=== PATIENT | female | born 1945 | race Caucasian/White ===

== ENCOUNTER 2019-03-21 15:42 | Emergency (ER) | payer MEDICARE, BC ==
[2019-03-21 15:55] VITALS: BP 153/95; PULSE 67
--- NOTE | 2019-03-21 16:07 | EDM.PDOC ---
ED HPI GENERAL MEDICAL PROBLEM - General Chief Complaint: Upper Extremity Injury/Pain Stated Complaint: [facility] Time Seen by Provider: 03/21/19 16:06 Source of Information: Reports: Patient History Limitations: Reports: No Limitations - History of Present Illness INITIAL COMMENTS - FREE TEXT/NARRATIVE: 73-year-old female presents the ED after tripping and falling while walking her dog this afternoon. She resides in [facility]. The details of why she fell or little bit unclear. She says she has some left leg weakness chronically and she has to watch how she walks sometimes. She landed on the grass. She suffered abrasions contusions to her right paxton-face anterior to the right ear in her right forehead. She denies any loss of consciousness. Her chief complaint is severe pain in left shoulder and proximal left humerus and right hand particularly third and fourth fingers. She states she laid on the ground for about 20 minutes before her son found her and therefore was quite cold when she was found. She has received fentanyl 100 g IV by paramedics prior to coming to the hospital in the ambulance. She was brought to the hospital bit by [facility] ambulance. At present she is complaining of pain in her left shoulder and some nausea. Onset: Today Onset Date: 03/21/19 Onset Time: 14:40 Duration: Minutes: Location: Reports: Face (Blunt trauma to the right paxton-face and suture ear over the zygomatic process and right forehead.), Upper Extremity, Left (Severe pain and limited ability to move her left arm left shoulder and proximal humerus.), Upper Extremity, Right (Pain and swelling over her right third and fourth fingers with inability to make a fist.), Lower Extremity, Right ( Abrasions to the right lower leg.). Denies: Chest, Back Quality: Reports: Ache, Throbbing Severity: Moderate (Left shoulder and right hand.) Improves with: Reports: Rest Worsens with: Reports: Movement (Any tends to move the left arm causes severe pain in her left shoulder area. She is unable to close or make a fist on the right hand.) Context: Reports: Trauma (Tripped and fell landing on grasp. Suffered contusions to right paxton-face and forehead injury to the right hand particularly the third and fourth fingers in injury to the left shoulder proximal left humerus.). Denies: Activity, Exercise, Lifting, Sick Contact Associated Symptoms: Reports: Nausea/Vomiting. Denies: Confusion, Chest Pain, Cough, cough w sputum, Diaphoresis, Fever/Chills, Headaches, Loss of Appetite, Malaise, Rash, Seizure (Mild nausea), Shortness of Breath, Syncope, Weakness Treatments BRANCHER: Reports: Other Medication(s), Other (see below) (Paramedics gave her 100 g of fentanyl en route to [place].) Other Treatments BRANCHER: fentanyl Left Arm Pain Score (Numeric/FACES): 2 - Related Data Allergies Allergy/AdvReac Type Severity Reaction Status Date / Time No Known Allergies Allergy Verified 03/21/19 15:56 Home Meds: Home Meds Levothyroxine 125 mcg PO DAILY 03/21/19 [History] Nadolol [Corgard] 40 mg PO DAILY 03/21/19 [History] Omeprazole 40 mg PO DAILY 03/21/19 [History] Rifaximin [Xifaxan] 550 mg PO BID 03/21/19 [History] Sertraline [Zoloft] 50 mg PO DAILY 03/21/19 [History] Spironolactone [Aldactone] 12.5 mg PO DAILY 03/21/19 [History] Ursodiol 250 mg PO BID 03/21/19 [History] oxyCODONE HCl [Roxicodone] 1 - 2 mg PO Q4H PRN #28 tablet 03/21/19 [Rx] Past Medical History Cardiovascular History: Reports: High Cholesterol Gastrointestinal History: Reports: Other (See Below) Other Gastrointestinal History: Patient has primary idiopathic biliary cirrhosis. He is followed every 3-6 months by gastroenterology. Endocrine/Metabolic History: Reports: Hypothyroidism Social & Family History - Tobacco Use Smoking Status *Q: Never Smoker - Caffeine Use Caffeine Use: Reports: Coffee - Living Situation & Occupation Living situation: Reports: Occupation: Retired Review of Systems - Review of Systems Review Of Systems: See Below Constitutional: Reports: No Symptoms Eyes: Reports: Glasses Ears: Reports: No Symptoms Nose: Reports: No Symptoms Mouth/Throat: Reports: No Symptoms Respiratory: Reports: No Symptoms Cardiovascular: Denies: Chest Pain, Edema, Irregular Heart Rate GI/Abdominal: Reports: Other (History sports to triage nurse that she has some problem with increased pressure in her liver. I'm not sure if this means portal hypertension. The patient actually has some form of hepatitis.) Genitourinary: Reports: No Symptoms Musculoskeletal: Reports: Other (Pain left shoulder from fall today. Pain right hand from fall today.) Skin: Reports: Other (Abrasions to the right paxton-face and forehead today.) Neurological: Reports: Difficulty Walking (Patient is very conscious of walking due to left leg foot weakness.), Other (Patient commented she seems to have a chronic left lower extremity weakness. By this I'm not sure she has a left foot drop. Patient mentions she not sure she had a stroke in the past or not.) Psychiatric: Reports: No Symptoms ED EXAM, GENERAL - Physical Exam Exam: See Below Exam Limited By: No Limitations General Appearance: Alert, WD/WN, Moderate Distress, Other (She has obvious abrasions to right paxton-face anterior to ear over the zygomatic process and traveling superiorly to the right temporal scalp with swelling of her right paxton -forehead without abrasions in this area. Her temperature is 37.0. Pulse is 67 respiratory to be teens sats are 97% on room air blood pressure mildly elevated 153/95.) Eye Exam: Bilateral Eye: Normal Inspection, PERRL Ears: Normal External Exam Nose: Other (Patient has a very superficial abrasion to the bridge of her nose. No active bleeding from the nares.) Throat/Mouth: Normal Inspection, Normal Lips, Normal Oropharynx, Other (No injuries to the tongue or dentition.) Head: Facial Swelling (She has multiple abrasions to the right paxton-face anterior to her right ear over the zygomatic process traveling superiorly up the right side of her face. She also has a soft tissue swelling to the right lateral forehead without abrasions.), Other Neck: Normal Inspection, Supple, Non-Tender, Full Range of Motion. No: Lymphadenopathy (L), Lymphadenopathy (R) Respiratory/Chest: No Respiratory Distress, Lungs Clear, Normal Breath Sounds, No Accessory Muscle Use, Other Cardiovascular: Normal Peripheral Pulses, Regular Rate, Rhythm, No Edema, No Gallop, No Murmur, No Rub Peripheral Pulses: 3+: Radial (L), Radial (R), Posterior Tibial (L), Posterior Tibial (R), Dorsalis Pedis (L), Dorsalis Pedis (R) GI/Abdominal: Normal Bowel Sounds, Soft, Non-Tender, No Abnormal Bruit, No Mass , Other Back Exam: Normal Inspection, Full Range of Motion. No: CVA Tenderness (L), CVA Tenderness (R) Extremities: Other (Examination the right hand shows marked swelling of the proximal third and fourth fingers with ecchymoses on the volar aspect of the right fourth finger strongly suggesting a underlying fracture. Patient has some swelling over the MCP joints in these areas as well. She is unable to make a fist. Examination of the left shoulder shows marked swelling especially anteriorly suggestive of hematoma in this area. There is no drop off laterally to suggest an anterior dislocation. She most likely has suffered a fracture of her proximal left humerus. She has no significant pain in her left wrist or hand. She is limited ability to pronate or supinate at the left elbow due to pain in her shoulder. Appears to be swelling and pain in the proximal humerus on exam on the left side as well.) Psychiatric: Normal Affect, Normal Mood Skin Exam: Warm, Dry, Other (Abrasions to the right paxton-face.) ED TRAUMA EXTREMITY PROCEDURES - Splinting Right Upper Extremity Pre-Procedure NV Status: Normal Post-Procedure NV Status: Normal Splint Material: Fiberglass Splint Design: Volar, Posterior, Other (The splint encompassed the third fourth and fifth fingers which have fractures at the base of the proximal phalanges.) Applied & Form Fitted By: Provider Provider Post-Splint Application NV Check: NV Status Normal Complications: No Course - Vital Signs Last Recorded V/S: Last Vital Signs Temp 37.0 C 03/21/19 15:51 Pulse 67 03/21/19 15:51 Resp 18 03/21/19 15:51 BP 153/95 H 03/21/19 15:51 Pulse Ox 97 03/21/19 15:51 - Orders/Labs/Meds Orders: Active Orders 24 hr Category Date Time Status Chest 1V Frontal [CR] Routine Exams 03/21/19 17:15 Taken Hand Comp Min 3V Rt [CR] Stat Exams 03/21/19 16:26 Taken Humerus Lt [CR] Stat Exams 03/21/19 16:24 Taken Shoulder Comp Lt [CR] Stat Exams 03/21/19 16:23 Taken DME for Discharge [COMM] Routine Oth 03/21/19 17:41 Ordered Labs: Laboratory Tests 03/21/19 03/21/19 03/21/19 Range/Units 17:30 17:30 17:30 WBC 6.28 (3.98-10.04) K/mm3 RBC 3.87 L (3.98-5.22) M/mm3 Hgb 12.6 (11.2-15.7) gm/dl Hct 36.4 (34.1-44.9) % MCV 94.1 (79.4-94.8) fl MCH 32.6 H (25.6-32.2) pg MCHC 34.6 (32.2-35.5) g/dl RDW Std Deviation 60.6 H (36.4-46.3) fL Plt Count 76 L (182-369) K/mm3 MPV 11.3 (9.4-12.3) fl Neut % (Auto) 64.8 (34.0-71.1) % Lymph % (Auto) 25.2 (19.3-51.7) % George % (Auto) 7.8 (4.7-12.5) % Eos % (Auto) 1.6 (0.7-5.8) Baso % (Auto) 0.3 (0.1-1.2) % Neut # (Auto) 4.07 (1.56-6.13) K/mm3 Lymph # (Auto) 1.58 (1.18-3.74) K/mm3 George # (Auto) 0.49 H (0.24-0.36) K/mm3 Eos # (Auto) 0.10 (0.04-0.36) K/mm3 Baso # (Auto) 0.02 (0.01-0.08) K/mm3 Manual Slide Review Abnormal smear PT 11.9 (9.7-12.0) SECONDS INR 1.10 APTT 25 (22-31) SECONDS Sodium 141 (136-145) mEq/L Potassium 3.8 (3.5-5.1) mEq/L Chloride 107 (98-107) mEq/L Carbon Dioxide 28 (21-32) mEq/L Anion Gap 9.8 (5-15) BUN 9 (7-18) mg/dL Creatinine 0.8 (0.55-1.02) mg/dL Est Cr Clr Drug Dosing 60.90 mL/min Estimated GFR (MDRD) > 60 (>60) mL/min BUN/Creatinine Ratio 11.3 L (14-18) Glucose 119 H (83-115) mg/dL Calcium 8.9 (8.5-10.1) mg/dL Magnesium 1.6 L (1.8-2.4) mg/dl Total Bilirubin 2.7 H (0.2-1.0) mg/dL AST 71 H (15-37) U/L ALT 26 (14-59) U/L Alkaline Phosphatase 337 H (46-116) U/L Total Protein 6.1 L (6.4-8.2) g/dl Albumin 2.5 L (3.4-5.0) g/dl Globulin 3.6 gm/dL Albumin/Globulin Ratio 0.7 L (1-2) TSH 3rd Generation 0.056 L (0.358-3.74) uIU/mL Meds: Medications Discontinued Medications Generic Name Dose Route Start Last Admin Trade Name Freq PRN Reason Stop Dose Admin Hydromorphone HCl 0.5 mg 03/21/19 16:22 03/21/19 17:17 Dilaudid IVPUSH 03/21/19 16:23 0.5 mg ONETIME ONE Administration Hydromorphone HCl 0.5 mg 03/21/19 17:50 03/21/19 17:57 Dilaudid IVPUSH 03/21/19 17:51 0.5 mg ONETIME ONE Administration Sodium Chloride 1,000 mls @ 125 mls/hr 03/21/19 16:30 03/21/19 17:14 Normal Saline IV 125 mls/hr ASDIRECTED CARLOS Administration Ondansetron HCl 4 mg 03/21/19 16:23 03/21/19 17:16 Zofran IVPUSH 03/21/19 16:24 4 mg ONETIME ONE Administration - Radiology Interpretation Free Text/Narrative:: 73-year-old female reports tripping and falling when she was out walking her dog in [facility] this afternoon. She fell hard face first into the grass. She suffered contusions and abrasions to her right paxton-face and temporal frontal scalp. Any loss of consciousness. Her primary complaint is severe pain in her left shoulder which reveals a large swelling and suspect hematoma over the proximal humerus. Less likely anterior dislocation of the shoulder. She has good radial pulses bilaterally. She has injuries to the proximal aspects of her right third and fourth fingers and she is unable to make a fist. Plan she will have CT head performed. She will have x-rays of her left shoulder and humerus and x-rays of her right hand performed. IV will be normal saline at 125 mils per hour. Given Zofran 4 mg IV and Dilaudid 0.5 mg IV for pain relief. There are no open wounds and no need for tetanus toxoid at this time - Re-Assessments/Exams Free Text/Narrative Re-Assessment/Exam: 03/21/19 18:09 x-rays of the left shoulder reveal a fracture of the proximal left humerus with fairly good position. Humeral x-rays reveal no other fractures within the humerus. There is some mild degenerative change at the acromioclavicular joint on the left side. Chest x-ray reveals no cardiomegaly and no obvious rib fractures. Visualized portions the lungs are clear. X-rays of the right hand reveal fractures of the distal aspects of the proximal phalanx ease of the third fourth and fifth fingers. CT of the brain reveals mild age associated changes. Ventricles glucose along with the basal cisterns and sulci over the convexities are within normal limits for her age. No acute parenchymal injuries are identified. Similar no evidence of intracranial bleeding or midline shift or mass effect. And also normal. Plan patient was placed in a sling and swath on the left side. A volar and posterior slab Ortho- Glass splint was placed on the right hand and wrist to maintain position of her fingers. Prior follow-up with Dr. Russ orthopedic surgeon in clinic in about a week to 10 days time. I will have her phone tomorrow morning and arrange an appointment. To place her on Roxicodone 5 mg tablets one or 2 every 4-6 hours as needed for pain relief. Patient by history the daughter indicates that she has primary idiopathic cirrhosis. Her high doses of Tylenol were not warranted. She will stay on MiraLAX 17 g or 1 scoop daily to prevent constipation from narcotic pain medication. Departure - Departure Time of Disposition: 18:12 Disposition: Home, Self-Care 01 Condition: Fair Clinical Impression: Fall Qualifiers: Encounter type: initial encounter Qualified Code(s): W19.XXXA - Unspecified fall, initial encounter Fracture of humerus, proximal, left, closed Qualifiers: Encounter type: initial encounter Fracture alignment: nondisplaced Fracture of multiple fingers Qualifiers: Encounter type: initial encounter Fracture type: closed Qualified Code(s): S62.609A - Fracture of unspecified phalanx of unspecified finger, initial encounter for closed fracture Fracture of hand Qualifiers: Encounter type: initial encounter Fracture type: closed Laterality: right Qualified Code(s): S62.91XA - Unspecified fracture of right wrist and hand, initial encounter for closed fracture - Discharge Information *PRESCRIPTION DRUG MONITORING PROGRAM REVIEWED*: Not Applicable *COPY OF PRESCRIPTION DRUG MONITORING REPORT IN PATIENT ANIKA: Not Applicable Prescriptions: oxyCODONE HCl [Roxicodone] 1 - 2 mg PO Q4H PRN #28 tablet PRN Reason: Pain relief Instructions: Humerus Fracture Treated With Immobilization, [id number], Finger Fracture, Adult, [id number], Cast or Splint Care, Adult Referrals: PCP,None [Primary Care Provider] - Forms: ED Department Discharge Additional Instructions: Evaluation the emergency room today in regards to a trip and fall with resultant blunt force trauma to the right side of your face and forehead with no loss of consciousness. CT of the head reveals no fractures and no intracranial bleeding or mass effect. CT does not reveal any evidence of previous stroke. Major injuries to the left shoulder and x-rays confirm a fracture of the upper aspect of your left humerus her arm bone. Position is adequate and surgery is not indicated. Treatment is sling and swath to hold it in position for the next 3 weeks until the bone begins to mid together. Other injuries are to your right hand and x-rays confirm fractures at the base of the third fourth and fifth fingers just above your knuckles. The hand was therefore immobilized with a posterior and anterior Ortho-Glass splint. Rate this hand is much as possible the next few days. Treatment at home is plenty of rest. Pain medication is to be Roxicodone 5 mg tablets one or 2 every 4-6 hours as needed for pain relief. Note these do not contain any Tylenol so as not to aggravate your primary biliary cirrhosis. Suggest using MiraLAX powder 17 g or 1 scoop every day to prevent constipation from the pain medications. Will need to follow -up with orthopedic surgeon Dr. Childs in about a week's time. Please call to arrange an appointment tomorrow morning. Continue all other medications as before. - My Orders Last 24 Hours: My Active Orders 03/21/19 16:23 Shoulder Comp Lt [CR] Stat 03/21/19 16:24 Humerus Lt [CR] Stat 03/21/19 16:26 Hand Comp Min 3V Rt [CR] Stat 03/21/19 17:15 Chest 1V Frontal [CR] Routine 03/21/19 17:41 DME for Discharge [COMM] Routine - Assessment/Plan Last 24 Hours: My Active Orders 03/21/19 16:23 Shoulder Comp Lt [CR] Stat 03/21/19 16:24 Humerus Lt [CR] Stat 03/21/19 16:26 Hand Comp Min 3V Rt [CR] Stat 03/21/19 17:15 Chest 1V Frontal [CR] Routine 03/21/19 17:41 DME for Discharge [COMM] Routine
[2019-03-21] MEDS ORDERED: HYDROmorphone 0.5 MG/0.5 ML Syringe IVPUSH ONE ×2 (16:22→17:50)
[2019-03-21] MEDS ORDERED: Ondansetron 4 MG/2 ML SDV IVPUSH ONE (16:23)
[2019-03-21] MEDS ORDERED: Sodium Chloride 0.9% 1,000 ML IV SCH (16:30)
--- NOTE | 2019-03-21 17:32 | CT ---
Head CT Technique: Multiple axial sections through the brain were obtained. Intravenous contrast was not utilized. Comparison: No prior intracranial imaging is available. Findings: Ventricles along with basal cisterns and sulci over the convexities are within normal limits for the patient's age. No abnormal parenchymal densities are seen. No evidence of intracranial hemorrhage. No midline shift or mass effect is seen. Bone window settings were reviewed which shows no discrete calvarial abnormality. Mastoid sinuses that are seen appear clear. No acute paranasal sinus findings are seen. Impression: 1. Nothing acute is seen on noncontrast head CT exam. Diagnostic code #1
--- NOTE | 2019-03-22 06:44 | CR ---
Chest: AP view of the chest was obtained. Comparison: No prior chest x-ray. Heart size is felt to be slightly enlarged. Tortuous thoracic aorta is seen. Pleural-based density noted within the left mid chest of uncertain etiology. Lungs otherwise are clear. Bony structures show minimal scoliosis of the spine. Osteopenia is seen. Impression: 1. Focal pleural-based density of left mid chest. Recommend noncontrast chest CT to further evaluate. 2. Nothing acute is otherwise seen. Diagnostic code #9
--- NOTE | 2019-03-22 06:45 | CR ---
Left humerus: Two views of the left humerus were obtained. Comparison: No prior humerus exam. Fracture is identified within the surgical neck. Osteopenia is seen. No additional abnormality is seen within the left humerus. Impression: 1. Osteopenia and fracture through the surgical neck. Diagnostic code #3
--- NOTE | 2019-03-22 06:45 | CR ---
Right hand: Four views of the right hand were obtained. Comparison: No previous hand study. Fractures are seen within the base of the proximal phalanx of the 3rd through 5th fingers. Slight displacement is seen within the 3rd and 4th fingers. Bony structures are slightly osteopenic. No other acute abnormality is appreciated. Impression: 1. Fractures involving the base of the proximal phalanx of the 3rd through 5th fingers. 2. Osteopenia. Diagnostic code #3
--- NOTE | 2019-03-22 08:28 | CR ---
Left shoulder: Three views of the left shoulder obtained. Comparison: No prior shoulder exam. Slightly angulated surgical neck fracture is seen. Displacement is seen by approximately 5 mm. Osteopenia is noted. No additional bony abnormality is seen. Impression: 1. Surgical neck fracture as noted above. 2. Osteopenia. Diagnostic code #3
== END 2019-03-21 18:45 | disposition home or self-care (01) ==
LOC: JD.ED 15:42
DX: S62.612A Displaced fracture of proximal phalanx of right middle finger, initial encounter for closed fracture (principal); S62.614A Displaced fracture of proximal phalanx of right ring finger, initial encounter for closed fracture; S62.616A Displaced fracture of proximal phalanx of right little finger, initial encounter for closed fracture; S42.215A Unspecified nondisplaced fracture of surgical neck of left humerus, initial encounter for closed fracture; S00.81XA Abrasion of other part of head, initial encounter; S00.31XA Abrasion of nose, initial encounter; E78.00 Pure hypercholesterolemia, unspecified; E03.9 Hypothyroidism, unspecified; Z79.899 Other long term (current) drug therapy; W01.0XXA Fall on same level from slipping, tripping and stumbling without subsequent striking against object, initial encounter; Y93.K1 Activity, walking an animal
CPT/HCPCS: 29125; 36415; 70450; 70450-26; 71045; 71045-26; 73030-26-LT; 73030-LT; 73060-26-LT; 73060-LT; 73130-26-RT; 73130-RT; 80053; 83735; 84443; 85025; 85610; 85730; 96361; 96374; 96375; 96376; 99285-25; J1170; J2405; J7040

== ENCOUNTER 2019-03-23 17:28 | Inpatient (IN) | payer MEDICARE, BC ==
[2019-03-23] MEDS ORDERED: Sodium Chloride 0.9% 10 ML Syringe FLUSH PRN (17:46)
[2019-03-23] MEDS ORDERED: Sodium Chloride 0.9% 1,000 ML IV SCH (18:00)
--- NOTE | 2019-03-23 18:34 | CT ---
Chest: Multiple axial sections through the chest were obtained. Intravenous contrast was not utilized. Comparison: Prior chest x-ray of 03/21/19. Findings: Slight areas of scarring and/or atelectasis within the left lung base. Mild pleural thickening is noted with thin the left lung base. Pleural thickening has a benign appearance. No chest wall or pleural mass is noted. No acute parenchymal change is seen within the lungs. Mediastinum and hilar region show no adenopathy. No aneurysm is seen within the thoracic aorta. Liver appears somewhat small and has a nodular contour raising the possibility of cirrhosis. Bone window settings were reviewed which shows nothing acute. Old compression deformity is noted within the upper lumbar spine. Schmorl node deformities are scattered within the spine. Impression: 1. Probable cirrhotic change within the liver. 2. Other findings which are felt to be incidental as noted above. Nothing acute is appreciated on noncontrast CT study of the chest. Finding on recent chest x-ray is felt to be incidental. Diagnostic code #3
--- NOTE | 2019-03-23 18:36 | CT ---
Head CT Technique: Multiple axial sections through the brain were obtained. Intravenous contrast was not utilized. Comparison: Prior head CT study of 03/21/19. Findings: Ventricles along with basal cisterns and sulci over the convexities are within normal limits for the patient's age. No abnormal parenchymal densities are seen. No evidence of intracranial hemorrhage. No midline shift or mass effect is seen. Bone window settings shows no acute calvarial abnormality. Impression: 1. Nothing acute is seen on noncontrast head CT study. 2. No change from prior head CT exam is seen. Diagnostic code #1
--- NOTE | 2019-03-23 18:48 | EDM.PDOC ---
ED HPI GENERAL MEDICAL PROBLEM - General Chief Complaint: Neurological Problem Stated Complaint: WEAKNESS,CONFUSION Time Seen by Provider: 03/23/19 17:36 Source of Information: Reports: Patient, Family History Limitations: Reports: Altered Mental Status - History of Present Illness INITIAL COMMENTS - FREE TEXT/NARRATIVE: The patient presents with confusion and generalized weakness. She fell on Tuesday and was seen here. She was walking her dog and she fell. She had a CT of her head done that looks good. She had a proximal phalanx fracture of the right 3rd and 5th digits. She also had a left humerus surgical neck fracture. She was put in a splint and a sling and swab. Since then she had generalized weakness and she is confused. She does not follow commands well and she will talk about things unrelated to questions at times. She has pain in her right and left arms. She has no headache, chest pain, shortness of breath, abdominal pain, nausea or vomiting. She has no dysuria. She has a history of primary idiopathic biliary cirrhosis. She sees GI every 3 to 6 months. Onset: Gradual Duration: Day(s): Location: Reports: Upper Extremity, Left, Upper Extremity, Right Quality: Reports: Sharp Severity: Moderate Improves with: Reports: Immobilization Worsens with: Reports: Movement Context: Reports: Trauma (She fell yesterday) Associated Symptoms: Reports: No Other Symptoms Arm Pain Score (Numeric/FACES): 2 - Related Data Allergies Allergy/AdvReac Type Severity Reaction Status Date / Time No Known Allergies Allergy Verified 03/23/19 17:38 Home Meds: Home Meds Levothyroxine 125 mcg PO DAILY 03/21/19 [History] Nadolol [Corgard] 40 mg PO DAILY 03/21/19 [History] Omeprazole 40 mg PO DAILY 03/21/19 [History] Rifaximin [Xifaxan] 550 mg PO BID 03/21/19 [History] Sertraline [Zoloft] 50 mg PO DAILY 03/21/19 [History] Spironolactone [Aldactone] 12.5 mg PO DAILY 03/21/19 [History] Ursodiol 250 mg PO BID 03/21/19 [History] oxyCODONE HCl [Roxicodone] 1 - 2 mg PO Q4H PRN #28 tablet 03/21/19 [Rx] Past Medical History HEENT History: Reports: Impaired Vision Cardiovascular History: Reports: High Cholesterol, Hypertension Respiratory History: Reports: None Gastrointestinal History: Reports: Other (See Below) Other Gastrointestinal History: Patient has primary idiopathic biliary cirrhosis. He is followed every 3-6 months by gastroenterology. Genitourinary History: Reports: None [employer] History: Reports: None Musculoskeletal History: Reports: Fracture Neurological History: Reports: None Psychiatric History: Reports: None Endocrine/Metabolic History: Reports: Hypothyroidism Hematologic History: Reports: None Immunologic History: Reports: None Oncologic (Cancer) History: Reports: None Dermatologic History: Reports: None - Infectious Disease History Infectious Disease History: Reports: None - Past Surgical History Head Surgeries/Procedures: Reports: None Social & Family History - Tobacco Use Smoking Status *Q: Never Smoker - Caffeine Use Caffeine Use: Reports: Coffee - Recreational Drug Use Recreational Drug Use: No - Living Situation & Occupation Living situation: Reports: Occupation: Retired ED ROS GENERAL - Review of Systems Review Of Systems: See Below Constitutional: Reports: No Symptoms HEENT: Reports: No Symptoms Respiratory: Reports: No Symptoms Cardiovascular: Reports: No Symptoms Endocrine: Reports: No Symptoms GI/Abdominal: Reports: No Symptoms : Reports: No Symptoms Musculoskeletal: Reports: Other (Left shoulder pain and right hand pain) Neurological: Denies: Headache - Physical Exam Exam: See Below Exam Limited By: No Limitations General Appearance: Alert, No Apparent Distress Ears: Normal External Exam Nose: Normal Inspection Head Exam: Atraumatic, Normocephalic Neck: Normal Inspection, Supple, Non-Tender Respiratory/Chest: No Respiratory Distress, Lungs Clear, Normal Breath Sounds Cardiovascular: Regular Rate, Rhythm, No Edema, No Murmur GI/Abdominal: Soft, Non-Tender, No Organomegaly, No Mass Neuro Exam (Abbreviated): Alert, Other (Confused) EKG INTERPRETATION EKG Date: 03/23/19 Time: 18:29 Rhythm: NSR Rate (Beats/Min): 79 [place]: Normal P-Wave: Present QRS: Normal ST-T: Normal QT: Normal EKG Interpretation Comments: PVCs Course - Vital Signs Last Recorded V/S: Last Vital Signs Temp 97.5 F 03/23/19 17:34 Pulse 74 03/23/19 17:34 Resp 16 03/23/19 17:34 BP 136/75 03/23/19 17:34 Pulse Ox 94 L 03/23/19 17:34 - Orders/Labs/Meds Orders: Active Orders 24 hr Category Date Time Status Cardiac Monitoring [RC] . DIRECTED Care 03/23/19 17:46 Active EKG Documentation Completion [RC] STAT Care 03/23/19 17:47 Active Oxygen Therapy [RC] PRN Care 03/23/19 17:46 Active Peripheral IV Care [RC] . DIRECTED Care 03/23/19 17:47 Active CULTURE URINE [RM] Stat Lab 03/23/19 19:09 Ordered DRUG SCREEN, URINE [URCHEM] Stat Lab 03/23/19 19:34 Ordered LACTIC ACID [CHEM] Stat Lab 03/23/19 19:33 Ordered Sodium Chloride 0.9% [Normal Saline] 1,000 ml Med 03/23/19 18:00 Active IV ASDIRECTED Sodium Chloride 0.9% [Saline Flush] Med 03/23/19 17:46 Active 10 ml FLUSH ASDIRECTED PRN cefTRIAXone [Rocephin] 1 gm Med 03/23/19 19:10 Active Sodium Chloride 0.9% [Normal Saline] 100 ml IV ONETIME Peripheral IV Insertion Adult [OM.PC] Stat Oth 03/23/19 17:46 Ordered Medication Orders Sodium Chloride (Normal Saline) 1,000 mls @ 125 mls/hr IV ASDIRECTED CARLOS Last Admin: 03/23/19 18:44 Dose: 125 mls/hr Ceftriaxone Sodium 1 gm/ (Sodium Chloride) 100 mls @ 200 mls/hr IV ONETIME ONE Stop: 03/23/19 19:39 Last Admin: 03/23/19 19:16 Dose: 200 mls/hr Sodium Chloride (Saline Flush) 10 ml FLUSH ASDIRECTED PRN PRN Reason: Keep Vein Open Last Admin: 03/23/19 18:44 Dose: 10 ml Labs: Laboratory Tests 03/23/19 03/23/19 03/23/19 Range/Units 17:44 17:56 17:56 WBC 8.75 (3.98-10.04) K/mm3 RBC 3.65 L (3.98-5.22) M/mm3 Hgb 11.9 (11.2-15.7) gm/dl Hct 35.2 (34.1-44.9) % MCV 96.4 H (79.4-94.8) fl MCH 32.6 H (25.6-32.2) pg MCHC 33.8 (32.2-35.5) g/dl RDW Std Deviation 59.7 H (36.4-46.3) fL Plt Count 89 L (182-369) K/mm3 MPV 11.8 (9.4-12.3) fl Neut % (Auto) 60.6 (34.0-71.1) % Lymph % (Auto) 19.2 L (19.3-51.7) % [place] % (Auto) 18.2 H (4.7-12.5) % Eos % (Auto) 1.5 (0.7-5.8) Baso % (Auto) 0.3 (0.1-1.2) % Neut # (Auto) 5.30 (1.56-6.13) K/mm3 Lymph # (Auto) 1.68 (1.18-3.74) K/mm3 [place] # (Auto) 1.59 H (0.24-0.36) K/mm3 Eos # (Auto) 0.13 (0.04-0.36) K/mm3 Baso # (Auto) 0.03 (0.01-0.08) K/mm3 Manual Slide Review Abnormal smear ESR 32 H (0-20) mm/hr PT (9.7-12.0) SECONDS INR APTT (22-31) SECONDS Sodium (136-145) mEq/L Potassium (3.5-5.1) mEq/L Chloride (98-107) mEq/L Carbon Dioxide (21-32) mEq/L Anion Gap (5-15) BUN (7-18) mg/dL Creatinine (0.55-1.02) mg/dL Est Cr Clr Drug Dosing mL/min Estimated GFR (MDRD) (>60) mL/min BUN/Creatinine Ratio (14-18) Glucose (83-115) mg/dL POC Glucose 104 (83-110) mg/dL Calcium (8.5-10.1) mg/dL Magnesium (1.8-2.4) mg/dl Total Bilirubin (0.2-1.0) mg/dL AST (15-37) U/L ALT (14-59) U/L Alkaline Phosphatase (46-116) U/L Ammonia (11-32) umol/L Troponin I (0.00-0.056) ng/mL C-Reactive Protein (<1.0) mg/dL NT-Pro-B Natriuret Pep (0-125) pg/mL Total Protein (6.4-8.2) g/dl Albumin (3.4-5.0) g/dl Globulin gm/dL Albumin/Globulin Ratio (1-2) TSH 3rd Generation (0.358-3.74) uIU/mL Urine Color (Yellow) Urine Appearance (Clear) Urine pH (5.0-8.0) Ur Specific [place] (1.005-1.030) Urine Protein (Negative) Urine Glucose (UA) (Negative) Urine Ketones (Negative) Urine Occult Blood (Negative) Urine Nitrite (Negative) Urine Bilirubin (Negative) Urine Urobilinogen (0.2-1.0) Ur Leukocyte Esterase (Negative) Urine RBC (0-5) /hpf Urine WBC (0-5) /hpf Ur Squamous Epith Cells (0-5) /hpf Urine Bacteria (FEW) /hpf Urine Mucus (FEW) /hpf Ethyl Alcohol (0.00) gm% 03/23/19 03/23/19 03/23/19 Range/Units 17:56 17:56 17:56 WBC (3.98-10.04) K/mm3 RBC (3.98-5.22) M/mm3 Hgb (11.2-15.7) gm/dl Hct (34.1-44.9) % MCV (79.4-94.8) fl MCH (25.6-32.2) pg MCHC (32.2-35.5) g/dl RDW Std Deviation (36.4-46.3) fL Plt Count (182-369) K/mm3 MPV (9.4-12.3) fl Neut % (Auto) (34.0-71.1) % Lymph % (Auto) (19.3-51.7) % [place] % (Auto) (4.7-12.5) % Eos % (Auto) (0.7-5.8) Baso % (Auto) (0.1-1.2) % Neut # (Auto) (1.56-6.13) K/mm3 Lymph # (Auto) (1.18-3.74) K/mm3 [place] # (Auto) (0.24-0.36) K/mm3 Eos # (Auto) (0.04-0.36) K/mm3 Baso # (Auto) (0.01-0.08) K/mm3 Manual Slide Review ESR (0-20) mm/hr PT 11.9 (9.7-12.0) SECONDS INR 1.10 APTT 26 (22-31) SECONDS Sodium 139 (136-145) mEq/L Potassium 4.3 (3.5-5.1) mEq/L Chloride 107 (98-107) mEq/L Carbon Dioxide 26 (21-32) mEq/L Anion Gap 10.3 (5-15) BUN 18 (7-18) mg/dL Creatinine 0.8 (0.55-1.02) mg/dL Est Cr Clr Drug Dosing 65.45 mL/min Estimated GFR (MDRD) > 60 (>60) mL/min BUN/Creatinine Ratio 22.5 H (14-18) Glucose 103 (83-115) mg/dL POC Glucose (83-110) mg/dL Calcium 8.7 (8.5-10.1) mg/dL Magnesium 1.6 L (1.8-2.4) mg/dl Total Bilirubin 3.0 H (0.2-1.0) mg/dL AST 65 H (15-37) U/L ALT 26 (14-59) U/L Alkaline Phosphatase 253 H (46-116) U/L Ammonia (11-32) umol/L Troponin I 0.017 (0.00-0.056) ng/mL C-Reactive Protein 7.6 H* (<1.0) mg/dL NT-Pro-B Natriuret Pep 89 (0-125) pg/mL Total Protein 6.0 L (6.4-8.2) g/dl Albumin 2.4 L (3.4-5.0) g/dl Globulin 3.6 gm/dL Albumin/Globulin Ratio 0.7 L (1-2) TSH 3rd Generation (0.358-3.74) uIU/mL Urine Color (Yellow) Urine Appearance (Clear) Urine pH (5.0-8.0) Ur Specific [place] (1.005-1.030) Urine Protein (Negative) Urine Glucose (UA) (Negative) Urine Ketones (Negative) Urine Occult Blood (Negative) Urine Nitrite (Negative) Urine Bilirubin (Negative) Urine Urobilinogen (0.2-1.0) Ur Leukocyte Esterase (Negative) Urine RBC (0-5) /hpf Urine WBC (0-5) /hpf Ur Squamous Epith Cells (0-5) /hpf Urine Bacteria (FEW) /hpf Urine Mucus (FEW) /hpf Ethyl Alcohol (0.00) gm% 03/23/19 03/23/19 03/23/19 Range/Units 17:56 18:22 18:22 WBC (3.98-10.04) K/mm3 RBC (3.98-5.22) M/mm3 Hgb (11.2-15.7) gm/dl Hct (34.1-44.9) % MCV (79.4-94.8) fl MCH (25.6-32.2) pg MCHC (32.2-35.5) g/dl RDW Std Deviation (36.4-46.3) fL Plt Count (182-369) K/mm3 MPV (9.4-12.3) fl Neut % (Auto) (34.0-71.1) % Lymph % (Auto) (19.3-51.7) % [place] % (Auto) (4.7-12.5) % Eos % (Auto) (0.7-5.8) Baso % (Auto) (0.1-1.2) % Neut # (Auto) (1.56-6.13) K/mm3 Lymph # (Auto) (1.18-3.74) K/mm3 [place] # (Auto) (0.24-0.36) K/mm3 Eos # (Auto) (0.04-0.36) K/mm3 Baso # (Auto) (0.01-0.08) K/mm3 Manual Slide Review ESR (0-20) mm/hr PT (9.7-12.0) SECONDS INR APTT (22-31) SECONDS Sodium (136-145) mEq/L Potassium (3.5-5.1) mEq/L Chloride (98-107) mEq/L Carbon Dioxide (21-32) mEq/L Anion Gap (5-15) BUN (7-18) mg/dL Creatinine (0.55-1.02) mg/dL Est Cr Clr Drug Dosing mL/min Estimated GFR (MDRD) (>60) mL/min BUN/Creatinine Ratio (14-18) Glucose (83-115) mg/dL POC Glucose (83-110) mg/dL Calcium (8.5-10.1) mg/dL Magnesium (1.8-2.4) mg/dl Total Bilirubin (0.2-1.0) mg/dL AST (15-37) U/L ALT (14-59) U/L Alkaline Phosphatase (46-116) U/L Ammonia 44 H (11-32) umol/L Troponin I (0.00-0.056) ng/mL C-Reactive Protein (<1.0) mg/dL NT-Pro-B Natriuret Pep (0-125) pg/mL Total Protein (6.4-8.2) g/dl Albumin (3.4-5.0) g/dl Globulin gm/dL Albumin/Globulin Ratio (1-2) TSH 3rd Generation 0.103 L (0.358-3.74) uIU/mL Urine Color (Yellow) Urine Appearance (Clear) Urine pH (5.0-8.0) Ur Specific [place] (1.005-1.030) Urine Protein (Negative) Urine Glucose (UA) (Negative) Urine Ketones (Negative) Urine Occult Blood (Negative) Urine Nitrite (Negative) Urine Bilirubin (Negative) Urine Urobilinogen (0.2-1.0) Ur Leukocyte Esterase (Negative) Urine RBC (0-5) /hpf Urine WBC (0-5) /hpf Ur Squamous Epith Cells (0-5) /hpf Urine Bacteria (FEW) /hpf Urine Mucus (FEW) /hpf Ethyl Alcohol 0.00 (0.00) gm% 03/23/19 Range/Units 18:49 WBC (3.98-10.04) K/mm3 RBC (3.98-5.22) M/mm3 Hgb (11.2-15.7) gm/dl Hct (34.1-44.9) % MCV (79.4-94.8) fl MCH (25.6-32.2) pg MCHC (32.2-35.5) g/dl RDW Std Deviation (36.4-46.3) fL Plt Count (182-369) K/mm3 MPV (9.4-12.3) fl Neut % (Auto) (34.0-71.1) % Lymph % (Auto) (19.3-51.7) % [place] % (Auto) (4.7-12.5) % Eos % (Auto) (0.7-5.8) Baso % (Auto) (0.1-1.2) % Neut # (Auto) (1.56-6.13) K/mm3 Lymph # (Auto) (1.18-3.74) K/mm3 [place] # (Auto) (0.24-0.36) K/mm3 Eos # (Auto) (0.04-0.36) K/mm3 Baso # (Auto) (0.01-0.08) K/mm3 Manual Slide Review ESR (0-20) mm/hr PT (9.7-12.0) SECONDS INR APTT (22-31) SECONDS Sodium (136-145) mEq/L Potassium (3.5-5.1) mEq/L Chloride (98-107) mEq/L Carbon Dioxide (21-32) mEq/L Anion Gap (5-15) BUN (7-18) mg/dL Creatinine (0.55-1.02) mg/dL Est Cr Clr Drug Dosing mL/min Estimated GFR (MDRD) (>60) mL/min BUN/Creatinine Ratio (14-18) Glucose (83-115) mg/dL POC Glucose (83-110) mg/dL Calcium (8.5-10.1) mg/dL Magnesium (1.8-2.4) mg/dl Total Bilirubin (0.2-1.0) mg/dL AST (15-37) U/L ALT (14-59) U/L Alkaline Phosphatase (46-116) U/L Ammonia (11-32) umol/L Troponin I (0.00-0.056) ng/mL C-Reactive Protein (<1.0) mg/dL NT-Pro-B Natriuret Pep (0-125) pg/mL Total Protein (6.4-8.2) g/dl Albumin (3.4-5.0) g/dl Globulin gm/dL Albumin/Globulin Ratio (1-2) TSH 3rd Generation (0.358-3.74) uIU/mL Urine Color [place] H (Yellow) Urine Appearance Slt cloudy H (Clear) Urine pH 6.0 (5.0-8.0) Ur Specific [place] 1.020 (1.005-1.030) Urine Protein Trace H (Negative) Urine Glucose (UA) Negative (Negative) Urine Ketones Trace H (Negative) Urine Occult Blood Negative (Negative) Urine Nitrite Positive H (Negative) Urine Bilirubin 2+ H (Negative) Urine Urobilinogen >=8.0 H (0.2-1.0) Ur Leukocyte Esterase 1+ H (Negative) Urine RBC 0-5 (0-5) /hpf Urine WBC 10-20 H (0-5) /hpf Ur Squamous Epith Cells 0-5 (0-5) /hpf Urine Bacteria Moderate H (FEW) /hpf Urine Mucus Few (FEW) /hpf Ethyl Alcohol (0.00) gm% Meds: Medications Generic Name Dose Route Start Last Admin Trade Name Freq PRN Reason Stop Dose Admin Sodium Chloride 1,000 mls @ 125 mls/hr 03/23/19 18:00 03/23/19 18:44 Normal Saline IV 125 mls/hr ASDIRECTED CARLOS Administration Ceftriaxone Sodium 1 gm/ 100 mls @ 200 mls/hr 03/23/19 19:10 03/23/19 19:16 Sodium Chloride IV 03/23/19 19:39 200 mls/hr ONETIME ONE Administration Sodium Chloride 10 ml 03/23/19 17:46 03/23/19 18:44 Saline Flush FLUSH 10 ml ASDIRECTED PRN Administration Keep Vein Open Discontinued Medications Generic Name Dose Route Start Last Admin Trade Name Freq PRN Reason Stop Dose Admin Lactulose 20 gm 03/23/19 19:10 03/23/19 19:22 Cephulac PO 03/23/19 19:11 20 gm ONETIME ONE Administration - Re-Assessments/Exams Free Text/Narrative Re-Assessment/Exam: 03/23/19 19:03 I ordered an IV NS at 125mL/hr, EKG, CT of her head and chest, labs and UA. Her EKG shows a NSR with no acute changes. The CT of her head shows nothing acute is seen on noncontrast head CT study. No change from prior head CT exam is seen. The CT of her chest shows probable cirrhotic change within the liver. Other findings which are felt to be incidental. Nothing acute is appreciated on noncontrast CT study of the chest. Findings on recent chest x-ray is felt to be incidental. Her platelets are low at 89. Her PT, INR and PTT look good. Her BUN/creatinine ratio is elevated at 22.5. Her ammonia level is elevated at 44. Her magnesium is low at 1.6. Her total bili is elevated at 3. Her AST is elevated at 65. Her alk phos is elevated at 253. Her CRP is elevated at 7.6. Her albumen is low at 2.4. I feel this is hepatic encephalopathy. I will give her a dose of lactulose. 03/23/19 19:28 Her UA shows a UTI. I have ordered a urine culture and I gave her rocephin 1 gram IV. I feel she needs to be admitted. I called Dr Juarez and she agreed to admit the patient. Departure - Departure Time of Disposition: 19:35 Disposition: Admitted As Inpatient 66 Condition: Fair Clinical Impression: Hepatic encephalopathy, Thrombocytopenia, Primary biliary cirrhosis Fall Qualifiers: Encounter type: initial encounter Qualified Code(s): W19.XXXA - Unspecified fall, initial encounter Fracture of multiple fingers Qualifiers: Encounter type: initial encounter Fracture type: closed Qualified Code(s): S62.609A - Fracture of unspecified phalanx of unspecified finger, initial encounter for closed fracture Fracture of humerus, proximal, left, closed Qualifiers: Encounter type: initial encounter Fracture morphology: other fracture Fracture alignment: nondisplaced Qualified Code(s): S42.295A - Other nondisplaced fracture of upper end of left humerus, initial encounter for closed fracture UTI (urinary tract infection) Qualifiers: Urinary tract infection type: site unspecified Hematuria presence: without hematuria Qualified Code(s): N39.0 - Urinary tract infection, site not specified - Discharge Information Referrals: Jamie Tolentino MD [Primary Care Provider] - Forms: ED Department Discharge - My Orders Last 24 Hours: My Active Orders 03/23/19 17:46 Cardiac Monitoring [RC] . DIRECTED Oxygen Therapy [RC] PRN Sodium Chloride 0.9% [Saline Flush] 10 ml FLUSH ASDIRECTED PRN Peripheral IV Insertion Adult [OM.PC] Stat 03/23/19 17:47 EKG Documentation Completion [RC] STAT Peripheral IV Care [RC] . DIRECTED 03/23/19 18:00 Sodium Chloride 0.9% [Normal Saline] 1,000 ml IV ASDIRECTED 03/23/19 19:09 CULTURE URINE [RM] Stat 03/23/19 19:10 cefTRIAXone [Rocephin] 1 gm Sodium Chloride 0.9% [Normal Saline] 100 ml IV ONETIME 03/23/19 19:33 LACTIC ACID [CHEM] Stat 03/23/19 19:34 DRUG SCREEN, URINE [URCHEM] Stat - Assessment/Plan Last 24 Hours: My Active Orders 03/23/19 17:46 Cardiac Monitoring [RC] . DIRECTED Oxygen Therapy [RC] PRN Sodium Chloride 0.9% [Saline Flush] 10 ml FLUSH ASDIRECTED PRN Peripheral IV Insertion Adult [OM.PC] Stat 03/23/19 17:47 EKG Documentation Completion [RC] STAT Peripheral IV Care [RC] . DIRECTED 03/23/19 18:00 Sodium Chloride 0.9% [Normal Saline] 1,000 ml IV ASDIRECTED 03/23/19 19:09 CULTURE URINE [RM] Stat 03/23/19 19:10 cefTRIAXone [Rocephin] 1 gm Sodium Chloride 0.9% [Normal Saline] 100 ml IV ONETIME 03/23/19 19:33 LACTIC ACID [CHEM] Stat 03/23/19 19:34 DRUG SCREEN, URINE [URCHEM] Stat
[2019-03-23] MEDS ORDERED: cefTRIAXone 1 GM in Sodium Chloride 0.9% 100 ML IV ONE (19:10)
[2019-03-23] MEDS ORDERED: Lactulose Soln 10 GM/15 ML 30 ML UD Cup PO ONE (19:10)
--- NOTE | 2019-03-23 20:03 | PCM.HP.2 ---
H&P History of Present Illness - General Date of Service: 03/23/19 - History of Present Illness Initial Comments - Free Text/Narative: This is a 73 year old female who is brought to the ED by daughter for worsening confusion for the past day. As per daughter she started noticing her becoming more and more unsteady, unable to hold herself up. Once she noticed the symptoms were worsening Tangential speech Hard time finding her words or thoughts Patient had a fall while walking her dogs on Tuesday, unknown mechanics but this resulted in a L humerus fracture and 3 finger fractures on the R, evaluated by orthopedics who decided no surgery now, repeat xray scheduled for Tuesday. Hypothyroidism PBC DLD Hypertension Arm Pain Score (Numeric/FACES): 2 - Related Data Allergies/Adverse Reactions: Allergies Allergy/AdvReac Type Severity Reaction Status Date / Time No Known Allergies Allergy Verified 03/23/19 23:59 Home Medications: Home Meds Levothyroxine 125 mcg PO DAILY 03/21/19 [History] Nadolol [Corgard] 40 mg PO DAILY 03/21/19 [History] Omeprazole 40 mg PO DAILY 03/21/19 [History] Rifaximin [Xifaxan] 550 mg PO BID 03/21/19 [History] Sertraline [Zoloft] 50 mg PO DAILY 03/21/19 [History] Spironolactone [Aldactone] 12.5 mg PO DAILY 03/21/19 [History] Ursodiol 250 mg PO BID 03/21/19 [History] oxyCODONE HCl [Roxicodone] 1 - 2 mg PO Q4H PRN #28 tablet 03/21/19 [Rx] Calcium Carbonate/Vitamin D3 [Calcium 1,000 + D3 Caplet] 1,200 mg PO DAILY 03/24 [History] Phytonadione (Vit K1) [Vitamin K-1] 100 mcg PO DAILY 03/24/19 [History] Vitamin A 8,000 intunit PO DAILY 03/24/19 [History] Vitamin E 180 mg PO DAILY 03/24/19 [History] Past Medical History HEENT History: Reports: Impaired Vision Cardiovascular History: Reports: High Cholesterol, Hypertension Respiratory History: Reports: None Gastrointestinal History: Reports: Other (See Below) Other Gastrointestinal History: Patient has primary idiopathic biliary cirrhosis. He is followed every 3-6 months by gastroenterology. Genitourinary History: Reports: None CHANGE OVER History: Reports: None Musculoskeletal History: Reports: Fracture Neurological History: Reports: None Psychiatric History: Reports: None Endocrine/Metabolic History: Reports: Hypothyroidism Hematologic History: Reports: None Immunologic History: Reports: None Oncologic (Cancer) History: Reports: None Dermatologic History: Reports: None - Infectious Disease History Infectious Disease History: Reports: None - Past Surgical History Head Surgeries/Procedures: Reports: None Social & Family History - Tobacco Use Smoking Status *Q: Never Smoker - Caffeine Use Caffeine Use: Reports: Coffee - Recreational Drug Use Recreational Drug Use: No - Living Situation & Occupation Living situation: Reports: Occupation: Retired H&P Review of Systems - Review of Systems: Review Of Systems: Unable To Obtain Exam - Exam Exam: See Below - Vital Signs Vital Signs: Last Vital Signs Temp 36.4 C 03/23/19 17:34 Pulse 74 03/23/19 17:34 Resp 16 03/23/19 17:34 BP 136/75 03/23/19 17:34 Pulse Ox 94 L 03/23/19 17:34 Weight: 77.111 kg - Exam General: Alert, Cooperative. No: Oriented HEENT: Conjunctiva Clear, EACs Clear, Pupils Equal. No: Scleral Icterus Neck: Supple Lungs: Clear to Auscultation, Normal Respiratory Effort. No: Crackles, Rales, Rhonchi, Wheezing Cardiovascular: Regular Rate, Regular Rhythm. No: Systolic Murmur, Diastolic Murmur, Rubs, Gallop/S3, Gallop/S4 GI/Abdominal Exam: Normal Bowel Sounds, Soft, Tender. No: Guarding, Rigid, Rebound Back Exam: Normal Inspection Extremities: Normal Inspection, No Pedal Edema - Patient Data Lab Results Last 24 hrs: Laboratory Results - last 24 hr 03/23/19 03/23/19 03/23/19 Range/Units 17:44 17:56 17:56 WBC 8.75 (3.98-10.04) K/mm3 RBC 3.65 L (3.98-5.22) M/mm3 Hgb 11.9 (11.2-15.7) gm/dl Hct 35.2 (34.1-44.9) % MCV 96.4 H (79.4-94.8) fl MCH 32.6 H (25.6-32.2) pg MCHC 33.8 (32.2-35.5) g/dl RDW Std Deviation 59.7 H (36.4-46.3) fL Plt Count 89 L (182-369) K/mm3 MPV 11.8 (9.4-12.3) fl Neut % (Auto) 60.6 (34.0-71.1) % Lymph % (Auto) 19.2 L (19.3-51.7) % [place] % (Auto) 18.2 H (4.7-12.5) % Eos % (Auto) 1.5 (0.7-5.8) Baso % (Auto) 0.3 (0.1-1.2) % Neut # (Auto) 5.30 (1.56-6.13) K/mm3 Lymph # (Auto) 1.68 (1.18-3.74) K/mm3 [place] # (Auto) 1.59 H (0.24-0.36) K/mm3 Eos # (Auto) 0.13 (0.04-0.36) K/mm3 Baso # (Auto) 0.03 (0.01-0.08) K/mm3 Manual Slide Review Abnormal smear ESR 32 H (0-20) mm/hr PT (9.7-12.0) SECONDS INR APTT (22-31) SECONDS Sodium (136-145) mEq/L Potassium (3.5-5.1) mEq/L Chloride (98-107) mEq/L Carbon Dioxide (21-32) mEq/L Anion Gap (5-15) BUN (7-18) mg/dL Creatinine (0.55-1.02) mg/dL Est Cr Clr Drug Dosing mL/min Estimated GFR (MDRD) (>60) mL/min BUN/Creatinine Ratio (14-18) Glucose (83-115) mg/dL POC Glucose 104 (83-110) mg/dL Calcium (8.5-10.1) mg/dL Magnesium (1.8-2.4) mg/dl Total Bilirubin (0.2-1.0) mg/dL AST (15-37) U/L ALT (14-59) U/L Alkaline Phosphatase (46-116) U/L Ammonia (11-32) umol/L Troponin I (0.00-0.056) ng/mL C-Reactive Protein (<1.0) mg/dL NT-Pro-B Natriuret Pep (0-125) pg/mL Total Protein (6.4-8.2) g/dl Albumin (3.4-5.0) g/dl Globulin gm/dL Albumin/Globulin Ratio (1-2) TSH 3rd Generation (0.358-3.74) uIU/mL Urine Color (Yellow) Urine Appearance (Clear) Urine pH (5.0-8.0) Ur Specific [place] (1.005-1.030) Urine Protein (Negative) Urine Glucose (UA) (Negative) Urine Ketones (Negative) Urine Occult Blood (Negative) Urine Nitrite (Negative) Urine Bilirubin (Negative) Urine Urobilinogen (0.2-1.0) Ur Leukocyte Esterase (Negative) Urine RBC (0-5) /hpf Urine WBC (0-5) /hpf Ur Squamous Epith Cells (0-5) /hpf Urine Bacteria (FEW) /hpf Urine Mucus (FEW) /hpf Ethyl Alcohol (0.00) gm% 03/23/19 03/23/19 03/23/19 Range/Units 17:56 17:56 17:56 WBC (3.98-10.04) K/mm3 RBC (3.98-5.22) M/mm3 Hgb (11.2-15.7) gm/dl Hct (34.1-44.9) % MCV (79.4-94.8) fl MCH (25.6-32.2) pg MCHC (32.2-35.5) g/dl RDW Std Deviation (36.4-46.3) fL Plt Count (182-369) K/mm3 MPV (9.4-12.3) fl Neut % (Auto) (34.0-71.1) % Lymph % (Auto) (19.3-51.7) % [place] % (Auto) (4.7-12.5) % Eos % (Auto) (0.7-5.8) Baso % (Auto) (0.1-1.2) % Neut # (Auto) (1.56-6.13) K/mm3 Lymph # (Auto) (1.18-3.74) K/mm3 [place] # (Auto) (0.24-0.36) K/mm3 Eos # (Auto) (0.04-0.36) K/mm3 Baso # (Auto) (0.01-0.08) K/mm3 Manual Slide Review ESR (0-20) mm/hr PT 11.9 (9.7-12.0) SECONDS INR 1.10 APTT 26 (22-31) SECONDS Sodium 139 (136-145) mEq/L Potassium 4.3 (3.5-5.1) mEq/L Chloride 107 (98-107) mEq/L Carbon Dioxide 26 (21-32) mEq/L Anion Gap 10.3 (5-15) BUN 18 (7-18) mg/dL Creatinine 0.8 (0.55-1.02) mg/dL Est Cr Clr Drug Dosing 65.45 mL/min Estimated GFR (MDRD) > 60 (>60) mL/min BUN/Creatinine Ratio 22.5 H (14-18) Glucose 103 (83-115) mg/dL POC Glucose (83-110) mg/dL Calcium 8.7 (8.5-10.1) mg/dL Magnesium 1.6 L (1.8-2.4) mg/dl Total Bilirubin 3.0 H (0.2-1.0) mg/dL AST 65 H (15-37) U/L ALT 26 (14-59) U/L Alkaline Phosphatase 253 H (46-116) U/L Ammonia (11-32) umol/L Troponin I 0.017 (0.00-0.056) ng/mL C-Reactive Protein 7.6 H* (<1.0) mg/dL NT-Pro-B Natriuret Pep 89 (0-125) pg/mL Total Protein 6.0 L (6.4-8.2) g/dl Albumin 2.4 L (3.4-5.0) g/dl Globulin 3.6 gm/dL Albumin/Globulin Ratio 0.7 L (1-2) TSH 3rd Generation (0.358-3.74) uIU/mL Urine Color (Yellow) Urine Appearance (Clear) Urine pH (5.0-8.0) Ur Specific [place] (1.005-1.030) Urine Protein (Negative) Urine Glucose (UA) (Negative) Urine Ketones (Negative) Urine Occult Blood (Negative) Urine Nitrite (Negative) Urine Bilirubin (Negative) Urine Urobilinogen (0.2-1.0) Ur Leukocyte Esterase (Negative) Urine RBC (0-5) /hpf Urine WBC (0-5) /hpf Ur Squamous Epith Cells (0-5) /hpf Urine Bacteria (FEW) /hpf Urine Mucus (FEW) /hpf Ethyl Alcohol (0.00) gm% 03/23/19 03/23/19 03/23/19 Range/Units 17:56 18:22 18:22 WBC (3.98-10.04) K/mm3 RBC (3.98-5.22) M/mm3 Hgb (11.2-15.7) gm/dl Hct (34.1-44.9) % MCV (79.4-94.8) fl MCH (25.6-32.2) pg MCHC (32.2-35.5) g/dl RDW Std Deviation (36.4-46.3) fL Plt Count (182-369) K/mm3 MPV (9.4-12.3) fl Neut % (Auto) (34.0-71.1) % Lymph % (Auto) (19.3-51.7) % [place] % (Auto) (4.7-12.5) % Eos % (Auto) (0.7-5.8) Baso % (Auto) (0.1-1.2) % Neut # (Auto) (1.56-6.13) K/mm3 Lymph # (Auto) (1.18-3.74) K/mm3 [place] # (Auto) (0.24-0.36) K/mm3 Eos # (Auto) (0.04-0.36) K/mm3 Baso # (Auto) (0.01-0.08) K/mm3 Manual Slide Review ESR (0-20) mm/hr PT (9.7-12.0) SECONDS INR APTT (22-31) SECONDS Sodium (136-145) mEq/L Potassium (3.5-5.1) mEq/L Chloride (98-107) mEq/L Carbon Dioxide (21-32) mEq/L Anion Gap (5-15) BUN (7-18) mg/dL Creatinine (0.55-1.02) mg/dL Est Cr Clr Drug Dosing mL/min Estimated GFR (MDRD) (>60) mL/min BUN/Creatinine Ratio (14-18) Glucose (83-115) mg/dL POC Glucose (83-110) mg/dL Calcium (8.5-10.1) mg/dL Magnesium (1.8-2.4) mg/dl Total Bilirubin (0.2-1.0) mg/dL AST (15-37) U/L ALT (14-59) U/L Alkaline Phosphatase (46-116) U/L Ammonia 44 H (11-32) umol/L Troponin I (0.00-0.056) ng/mL C-Reactive Protein (<1.0) mg/dL NT-Pro-B Natriuret Pep (0-125) pg/mL Total Protein (6.4-8.2) g/dl Albumin (3.4-5.0) g/dl Globulin gm/dL Albumin/Globulin Ratio (1-2) TSH 3rd Generation 0.103 L (0.358-3.74) uIU/mL Urine Color (Yellow) Urine Appearance (Clear) Urine pH (5.0-8.0) Ur Specific [place] (1.005-1.030) Urine Protein (Negative) Urine Glucose (UA) (Negative) Urine Ketones (Negative) Urine Occult Blood (Negative) Urine Nitrite (Negative) Urine Bilirubin (Negative) Urine Urobilinogen (0.2-1.0) Ur Leukocyte Esterase (Negative) Urine RBC (0-5) /hpf Urine WBC (0-5) /hpf Ur Squamous Epith Cells (0-5) /hpf Urine Bacteria (FEW) /hpf Urine Mucus (FEW) /hpf Ethyl Alcohol 0.00 (0.00) gm% 03/23/19 Range/Units 18:49 WBC (3.98-10.04) K/mm3 RBC (3.98-5.22) M/mm3 Hgb (11.2-15.7) gm/dl Hct (34.1-44.9) % MCV (79.4-94.8) fl MCH (25.6-32.2) pg MCHC (32.2-35.5) g/dl RDW Std Deviation (36.4-46.3) fL Plt Count (182-369) K/mm3 MPV (9.4-12.3) fl Neut % (Auto) (34.0-71.1) % Lymph % (Auto) (19.3-51.7) % [place] % (Auto) (4.7-12.5) % Eos % (Auto) (0.7-5.8) Baso % (Auto) (0.1-1.2) % Neut # (Auto) (1.56-6.13) K/mm3 Lymph # (Auto) (1.18-3.74) K/mm3 [place] # (Auto) (0.24-0.36) K/mm3 Eos # (Auto) (0.04-0.36) K/mm3 Baso # (Auto) (0.01-0.08) K/mm3 Manual Slide Review ESR (0-20) mm/hr PT (9.7-12.0) SECONDS INR APTT (22-31) SECONDS Sodium (136-145) mEq/L Potassium (3.5-5.1) mEq/L Chloride (98-107) mEq/L Carbon Dioxide (21-32) mEq/L Anion Gap (5-15) BUN (7-18) mg/dL Creatinine (0.55-1.02) mg/dL Est Cr Clr Drug Dosing mL/min Estimated GFR (MDRD) (>60) mL/min BUN/Creatinine Ratio (14-18) Glucose (83-115) mg/dL POC Glucose (83-110) mg/dL Calcium (8.5-10.1) mg/dL Magnesium (1.8-2.4) mg/dl Total Bilirubin (0.2-1.0) mg/dL AST (15-37) U/L ALT (14-59) U/L Alkaline Phosphatase (46-116) U/L Ammonia (11-32) umol/L Troponin I (0.00-0.056) ng/mL C-Reactive Protein (<1.0) mg/dL NT-Pro-B Natriuret Pep (0-125) pg/mL Total Protein (6.4-8.2) g/dl Albumin (3.4-5.0) g/dl Globulin gm/dL Albumin/Globulin Ratio (1-2) TSH 3rd Generation (0.358-3.74) uIU/mL Urine Color [place] H (Yellow) Urine Appearance Slt cloudy H (Clear) Urine pH 6.0 (5.0-8.0) Ur Specific [place] 1.020 (1.005-1.030) Urine Protein Trace H (Negative) Urine Glucose (UA) Negative (Negative) Urine Ketones Trace H (Negative) Urine Occult Blood Negative (Negative) Urine Nitrite Positive H (Negative) Urine Bilirubin 2+ H (Negative) Urine Urobilinogen >=8.0 H (0.2-1.0) Ur Leukocyte Esterase 1+ H (Negative) Urine RBC 0-5 (0-5) /hpf Urine WBC 10-20 H (0-5) /hpf Ur Squamous Epith Cells 0-5 (0-5) /hpf Urine Bacteria Moderate H (FEW) /hpf Urine Mucus Few (FEW) /hpf Ethyl Alcohol (0.00) gm% Result Diagrams: 03/24/19 05:16 03/24/19 05:16 - Problem List (1) Altered mental status SNOMED Code(s): 570534199 ICD Code: R41.82 - ALTERED MENTAL STATUS, UNSPECIFIED Status: Acute Current Visit: Yes (2) UTI (urinary tract infection) SNOMED Code(s): 96059725 ICD Code: N39.0 - URINARY TRACT INFECTION, SITE NOT SPECIFIED Status: Acute Current Visit: Yes Qualifiers: Urinary tract infection type: site unspecified Hematuria presence: without hematuria Qualified Code(s): N39.0 - Urinary tract infection, site not specified (3) Fall SNOMED Code(s): 5062184, 833820816 ICD Code: W19.XXXA - UNSPECIFIED FALL, INITIAL ENCOUNTER Status: Acute Current Visit: Yes Qualifiers: Encounter type: initial encounter Qualified Code(s): W19.XXXA - Unspecified fall, initial encounter (4) Fracture of humerus, proximal, left, closed SNOMED Code(s): 85821976 ICD Code: S42.202A - UNSP FRACTURE OF UPPER END OF LEFT HUMERUS, INIT FOR CLOS FX Status: Acute Current Visit: Yes Qualifiers: Encounter type: initial encounter Fracture morphology: other fracture Fracture alignment: nondisplaced Qualified Code(s): S42.295A - Other nondisplaced fracture of upper end of left humerus, initial encounter for closed fracture (5) Fracture of multiple fingers SNOMED Code(s): 61641932 ICD Code: S62.609A - FRACTURE OF UNSP PHALANX OF UNSP FINGER, INIT FOR CLOS FX Status: Acute Current Visit: Yes Qualifiers: Encounter type: initial encounter Fracture type: closed Qualified Code(s) : S62.609A - Fracture of unspecified phalanx of unspecified finger, initial encounter for closed fracture (6) Hepatic encephalopathy SNOMED Code(s): 22134890 ICD Code: K72.90 - HEPATIC FAILURE, UNSPECIFIED WITHOUT COMA Status: Acute Current Visit: Yes (7) Primary biliary cirrhosis SNOMED Code(s): 55509821 ICD Code: K74.3 - PRIMARY BILIARY CIRRHOSIS Status: Acute Current Visit: Yes (8) Hypoalbuminemia SNOMED Code(s): 099259835 ICD Code: E88.09 - OTH DISORDERS OF PLASMA-PROTEIN METABOLISM, NEC Status: Acute Current Visit: Yes (9) Hypomagnesemia SNOMED Code(s): 340815522 ICD Code: E83.42 - HYPOMAGNESEMIA Status: Acute Current Visit: Yes (10) Abnormal LFTs (liver function tests) SNOMED Code(s): 979699052 ICD Code: R94.5 - ABNORMAL RESULTS OF LIVER FUNCTION STUDIES Status: Acute Current Visit: Yes (11) Hypertension SNOMED Code(s): 02445051 ICD Code: I10 - ESSENTIAL (PRIMARY) HYPERTENSION Status: Acute Current Visit: Yes (12) Hypothyroidism SNOMED Code(s): 26193465 ICD Code: E03.9 - HYPOTHYROIDISM, UNSPECIFIED Status: Acute Current Visit : Yes (13) Dyslipidemia SNOMED Code(s): 556867153 ICD Code: E78.5 - HYPERLIPIDEMIA, UNSPECIFIED Status: Acute Current Visit : Yes (14) Hyperammonemia SNOMED Code(s): 9020360 ICD Code: E72.20 - DISORDER OF UREA CYCLE METABOLISM, UNSPECIFIED Status: Acute Current Visit: Yes (15) Physical deconditioning SNOMED Code(s): 44648954831607 ICD Code: R53.81 - OTHER MALAISE Status: Acute Current Visit: Yes Problem List Initiated/Reviewed/Updated: Yes Assessment/Plan Comment:: Multifactorial altered mental status Hepatic encephalopathy with hyperammonemia Elevated ammonium on admission As per daughter she has been progressively getting weaker with decreased appetite and unsteady gait PLAN - Scheduled Lactulose - Repeat ammonia in AM - Monitor mental status - Let me sleep protocol UTI (urinary tract infection) Progressively increasing urinary frequency and incontinence in the past couple of weeks Likely confounding mental status Pathologic UA on admission PLAN - Start ceftriaxone - F/U on Urine culture Closed proximal fracture of left humerus and multiple fingers 2/2 fall Deconditioning Came to the ED 2 days ago after fall Evaluated by orthopedics who recommended conservative management with f/u on Tuesday to evaluate for surgery PLAN - Pain management - F/U with orthopedics on Tuesday Primary biliary cirrhosis, MELD-Na 13 Abnormal LFTs (liver function tests) Hypoalbuminemia Mortality according to MELD Na 6% No previous GI bleeds or coagulopathy Probably worsening encephalopathy PLAN - Continue home meds once available - Lactulose Hypomagnesemia Magnesium of 1.6 on admission Normal K PLAN - Replace Mg - Repeat levels in AM Hypertension BP on admission 136/75 Pending home meds for reconciliation PLAN - Reconcile meds once available - Hydralazine 10m for BP >180/110 Hypothyroidism Home medication dose pending Could be affecting mental status PLAN - New TSH ordered - Reconcile home meds once available Dyslipidemia No acute issues Pending home meds PLAN - Reconcile meds once available PROPHYLAXIS DVT- Lovenox GI-not indicated CODE STATUS: FULL CODE NEXT OF KIN: Tomeka Darnell, daughter, #[phone] DISPOSITION: Patient will be admitted to medical floor for work up and monitorization of her AMS, pending home meds. Daughter refers progressive weakness. PT/OT has been consulted and will f/u with discharge recommendations.
[2019-03-23] MEDS ORDERED: Ketorolac 30 MG/ML SDV IV PRN (20:37)
[2019-03-23] MEDS ORDERED: Ondansetron 4 MG/2 ML SDV IV PRN (20:37)
[2019-03-23] MEDS ORDERED: Magnesium Sulfate/Water 4 GM in Premix Bag 1 BAG IV ONE (21:00)
[2019-03-23] MEDS: Rifaximin 550 MG Tab PO SCH (22:14)
[2019-03-23] MEDS: Lactulose Soln 10 GM/15 ML 30 ML UD Cup PO SCH (22:15)
[2019-03-23] MEDS: Lactated Ringers 1,000 ML IV SCH (22:25)
[2019-03-23] MEDS ORDERED: URSODIOL 250 MG PO ONE (22:45)
[2019-03-24] MEDS: Lactated Ringers 1,000 ML IV SCH ×2 (05:47→20:56)
[2019-03-24] MEDS: Levothyroxine 125 MCG Tab PO SCH (05:48)
[2019-03-24] MEDS: Pantoprazole 40 MG Tab.CR PO SCH ×2 (05:49→08:35)
[2019-03-24] MEDS: Lactulose Soln 10 GM/15 ML 30 ML UD Cup PO SCH ×4 (05:50→20:09)
[2019-03-24] MEDS ORDERED: Non-Formulary Medication 1 Each (Omeprazole [Omeprazole] 40 MG) PO SCH (09:00)
[2019-03-24] MEDS: Rifaximin 550 MG Tab PO SCH ×2 (09:55→20:08)
[2019-03-24] MEDS: Sertraline 50 MG Tab PO SCH (09:56)
[2019-03-24] MEDS: Spironolactone 25 MG Tab PO SCH (09:56)
[2019-03-24] MEDS: URSODIOL 250 MG PO SCH ×2 (09:58→20:09)
--- NOTE | 2019-03-24 11:40 | PCM.PN ---
- General Info Date of Service: 03/24/19 Subjective Update: 5 BMs overnight Slept ok Ambulating with 2 person assist to restroom Tolerating diet Unsteady gait - Patient Data Vitals - Most Recent: Last Vital Signs Temp 36.9 C 03/24/19 07:53 Pulse 72 03/24/19 09:57 Resp 16 03/24/19 07:53 BP 122/92 H 03/24/19 09:57 Pulse Ox 95 03/24/19 07:53 Weight - Most Recent: 81.329 kg - Exam Physical Findings Comments:: General: Alert, Cooperative. No: Oriented HEENT: Conjunctiva Clear, EACs Clear, Pupils Equal. No: Scleral Icterus Neck: Supple Lungs: Clear to Auscultation, Normal Respiratory Effort. No: Crackles, Rales, Rhonchi, Wheezing Cardiovascular: Regular Rate, Regular Rhythm. No: Systolic Murmur, Diastolic Murmur, Rubs, Gallop/S3, Gallop/S4 GI/Abdominal Exam: Normal Bowel Sounds, Soft, Tender. No: Guarding, Rigid, Rebound Back Exam: Normal Inspection Extremities: Normal Inspection, No Pedal Edema - Problem List & Annotations (1) Altered mental status SNOMED Code(s): 110238023 Code(s): R41.82 - ALTERED MENTAL STATUS, UNSPECIFIED Status: Acute Current Visit: Yes (2) Abnormal LFTs (liver function tests) SNOMED Code(s): 497681589 Code(s): R94.5 - ABNORMAL RESULTS OF LIVER FUNCTION STUDIES Status: Acute Current Visit: Yes (3) Dyslipidemia SNOMED Code(s): 653378390 Code(s): E78.5 - HYPERLIPIDEMIA, UNSPECIFIED Status: Acute Current Visit : Yes (4) Fracture of humerus, proximal, left, closed SNOMED Code(s): 56392607 Code(s): S42.202A - UNSP FRACTURE OF UPPER END OF LEFT HUMERUS, INIT FOR CLOS FX Status: Acute Current Visit: Yes Qualifiers: Encounter type: initial encounter Fracture morphology: other fracture Fracture alignment: nondisplaced Qualified Code(s): S42.295A - Other nondisplaced fracture of upper end of left humerus, initial encounter for closed fracture (5) Fracture of multiple fingers SNOMED Code(s): 51762458 Code(s): S62.609A - FRACTURE OF UNSP PHALANX OF UNSP FINGER, INIT FOR CLOS FX Status: Acute Current Visit: Yes Qualifiers: Encounter type: initial encounter Fracture type: closed Qualified Code(s) : S62.609A - Fracture of unspecified phalanx of unspecified finger, initial encounter for closed fracture (6) Hepatic encephalopathy SNOMED Code(s): 84530805 Code(s): K72.90 - HEPATIC FAILURE, UNSPECIFIED WITHOUT COMA Status: Acute Current Visit: Yes (7) Hyperammonemia SNOMED Code(s): 3819610 Code(s): E72.20 - DISORDER OF UREA CYCLE METABOLISM, UNSPECIFIED Status: Acute Current Visit: Yes (8) Hypoalbuminemia SNOMED Code(s): 384699408 Code(s): E88.09 - OTH DISORDERS OF PLASMA-PROTEIN METABOLISM, NEC Status: Acute Current Visit: Yes (9) Hypomagnesemia SNOMED Code(s): 627264570 Code(s): E83.42 - HYPOMAGNESEMIA Status: Acute Current Visit: Yes (10) Hypothyroidism SNOMED Code(s): 89471088 Code(s): E03.9 - HYPOTHYROIDISM, UNSPECIFIED Status: Acute Current Visit : Yes (11) Physical deconditioning SNOMED Code(s): 41582881287418 Code(s): R53.81 - OTHER MALAISE Status: Acute Current Visit: Yes (12) Primary biliary cirrhosis SNOMED Code(s): 43132228 Code(s): K74.3 - PRIMARY BILIARY CIRRHOSIS Status: Acute Current Visit: Yes (13) Thrombocytopenia SNOMED Code(s): 516802645 Code(s): D69.6 - THROMBOCYTOPENIA, UNSPECIFIED Status: Acute Current Visit: Yes (14) UTI (urinary tract infection) SNOMED Code(s): 78615427 Code(s): N39.0 - URINARY TRACT INFECTION, SITE NOT SPECIFIED Status: Acute Current Visit: Yes Qualifiers: Urinary tract infection type: site unspecified Hematuria presence: without hematuria Qualified Code(s): N39.0 - Urinary tract infection, site not specified - Problem List Review Problem List Initiated/Reviewed/Updated: Yes - Plan Plan:: Multifactorial altered mental status Hepatic encephalopathy with hyperammonemia Elevated ammonium on admission As per daughter she has been progressively getting weaker with decreased appetite and unsteady gait Repeat ammonia improved Mental status improved PLAN - Scheduled Lactulose - Repeat ammonia in AM - Monitor mental status - Let me sleep protocol UTI (urinary tract infection) Progressively increasing urinary frequency and incontinence in the past couple of weeks Likely confounding mental status Pathologic UA on admission PLAN - Continue ceftriaxone - F/U on Urine culture Closed proximal fracture of left humerus and multiple fingers 2/2 fall Deconditioning Came to the ED 2 days ago after fall Evaluated by orthopedics who recommended conservative management with f/u on Tuesday to evaluate for surgery PLAN - Pain management - F/U with orthopedics on Tuesday Primary biliary cirrhosis, MELD-Na 13 Abnormal LFTs (liver function tests) Hypoalbuminemia Mortality according to MELD Na 6% No previous GI bleeds or coagulopathy Probably worsening encephalopathy PLAN - Continue home vitamins - Continue Rifaximin - Continue Lactulose Hypertension BP on admission 136/75trend 122-140/54-92 PLAN - Reconcile meds once available - Hydralazine 10m for BP >180/110 Hypothyroidism Home medication dose pending Could be affecting mental status TSh extremely low, overly treated PLAN - Continue home med for now - Recommend PCP to adjust as an outpatient Dyslipidemia No acute issues PLAN - Continue home med Hypomagnesemia, resolved PROPHYLAXIS DVT- Lovenox GI-not indicated CODE STATUS: FULL CODE NEXT OF KIN: Tomeka Darnell, daughter, # DISPOSITION: Patient will be admitted to medical floor for work up and monitorization of her AMS, pending home meds. Daughter refers progressive weakness. PT/OT has been consulted and will f/u with discharge recommendations.
[2019-03-24] MEDS ORDERED: hydrALAZINE 20 MG/ML SDV IV PRN (13:01)
[2019-03-24] MEDS: Ketorolac 15 MG/ML SDV IVPUSH PRN ×2 (13:23→22:05)
[2019-03-24] MEDS: Calcium Carbonate/Vitamin D3 600 MG-200 Units Tab PO SCH (13:24)
[2019-03-24] MEDS: VITAMIN A PO SCH (13:25)
[2019-03-24] MEDS: PHYTONADIONE 100 MCG PO SCH (13:25)
[2019-03-24] MEDS: VITAMIN E 180 MG PO SCH (13:25)
[2019-03-25] MEDS: Lactated Ringers 1,000 ML IV SCH ×2 (02:43→10:12)
[2019-03-25] MEDS: Lactulose Soln 10 GM/15 ML 30 ML UD Cup PO SCH ×4 (03:38→20:26)
[2019-03-25] MEDS: Ketorolac 15 MG/ML SDV IVPUSH PRN (05:03)
[2019-03-25] MEDS: Pantoprazole 40 MG Tab.CR PO SCH ×2 (05:04→06:06)
[2019-03-25] MEDS: Levothyroxine 125 MCG Tab PO SCH (05:04)
[2019-03-25] MEDS: Rifaximin 550 MG Tab PO SCH ×2 (08:18→20:26)
[2019-03-25] MEDS: Spironolactone 25 MG Tab PO SCH (08:18)
[2019-03-25] MEDS: Calcium Carbonate/Vitamin D3 600 MG-200 Units Tab PO SCH (08:18)
[2019-03-25] MEDS: VITAMIN E 180 MG PO SCH (08:19)
[2019-03-25] MEDS: Sertraline 50 MG Tab PO SCH (08:19)
[2019-03-25] MEDS: PHYTONADIONE 100 MCG PO SCH (08:19)
[2019-03-25] MEDS: VITAMIN A PO SCH (08:19)
[2019-03-25] MEDS: URSODIOL 250 MG PO SCH ×2 (08:20→20:26)
--- NOTE | 2019-03-25 09:09 | PCM.PN ---
- General Info Date of Service: 03/25/19 Subjective Update: Mental status improved Slept through the night Tolerating diet - Patient Data Weight - Most Recent: 83.416 kg - Exam Physical Findings Comments:: General: Alert, Cooperative. No: Oriented HEENT: Conjunctiva Clear, EACs Clear, Pupils Equal. No: Scleral Icterus Neck: Supple Lungs: Clear to Auscultation, Normal Respiratory Effort. No: Crackles, Rales, Rhonchi, Wheezing Cardiovascular: Regular Rate, Regular Rhythm. No: Systolic Murmur, Diastolic Murmur, Rubs, Gallop/S3, Gallop/S4 GI/Abdominal Exam: Normal Bowel Sounds, Soft, Tender. No: Guarding, Rigid, Rebound Back Exam: Normal Inspection Extremities: Normal Inspection, No Pedal Edema - Problem List & Annotations (1) Altered mental status SNOMED Code(s): 532598348 Code(s): R41.82 - ALTERED MENTAL STATUS, UNSPECIFIED Status: Acute Current Visit: Yes (2) Abnormal LFTs (liver function tests) SNOMED Code(s): 653876185 Code(s): R94.5 - ABNORMAL RESULTS OF LIVER FUNCTION STUDIES Status: Acute Current Visit: Yes (3) Dyslipidemia SNOMED Code(s): 324098583 Code(s): E78.5 - HYPERLIPIDEMIA, UNSPECIFIED Status: Acute Current Visit : Yes (4) Fracture of humerus, proximal, left, closed SNOMED Code(s): 25781812 Code(s): S42.202A - UNSP FRACTURE OF UPPER END OF LEFT HUMERUS, INIT FOR CLOS FX Status: Acute Current Visit: Yes Qualifiers: Encounter type: initial encounter Fracture morphology: other fracture Fracture alignment: nondisplaced Qualified Code(s): S42.295A - Other nondisplaced fracture of upper end of left humerus, initial encounter for closed fracture (5) Fracture of multiple fingers SNOMED Code(s): 92798214 Code(s): S62.609A - FRACTURE OF UNSP PHALANX OF UNSP FINGER, INIT FOR CLOS FX Status: Acute Current Visit: Yes Qualifiers: Encounter type: initial encounter Fracture type: closed Qualified Code(s) : S62.609A - Fracture of unspecified phalanx of unspecified finger, initial encounter for closed fracture (6) Hepatic encephalopathy SNOMED Code(s): 66762525 Code(s): K72.90 - HEPATIC FAILURE, UNSPECIFIED WITHOUT COMA Status: Acute Current Visit: Yes (7) Hyperammonemia SNOMED Code(s): 9946074 Code(s): E72.20 - DISORDER OF UREA CYCLE METABOLISM, UNSPECIFIED Status: Acute Current Visit: Yes (8) Hypoalbuminemia SNOMED Code(s): 047632270 Code(s): E88.09 - OTH DISORDERS OF PLASMA-PROTEIN METABOLISM, NEC Status: Acute Current Visit: Yes (9) Hypomagnesemia SNOMED Code(s): 988071915 Code(s): E83.42 - HYPOMAGNESEMIA Status: Acute Current Visit: Yes (10) Hypothyroidism SNOMED Code(s): 08140490 Code(s): E03.9 - HYPOTHYROIDISM, UNSPECIFIED Status: Acute Current Visit : Yes (11) Physical deconditioning SNOMED Code(s): 76549714963210 Code(s): R53.81 - OTHER MALAISE Status: Acute Current Visit: Yes (12) Primary biliary cirrhosis SNOMED Code(s): 05628826 Code(s): K74.3 - PRIMARY BILIARY CIRRHOSIS Status: Acute Current Visit: Yes (13) Thrombocytopenia SNOMED Code(s): 096355741 Code(s): D69.6 - THROMBOCYTOPENIA, UNSPECIFIED Status: Acute Current Visit: Yes (14) UTI (urinary tract infection) SNOMED Code(s): 97053878 Code(s): N39.0 - URINARY TRACT INFECTION, SITE NOT SPECIFIED Status: Acute Current Visit: Yes Qualifiers: Urinary tract infection type: site unspecified Hematuria presence: without hematuria Qualified Code(s): N39.0 - Urinary tract infection, site not specified (15) Orthostatic dizziness SNOMED Code(s): 437097257 Code(s): R42 - DIZZINESS AND GIDDINESS Status: Acute Current Visit: Yes - Problem List Review Problem List Initiated/Reviewed/Updated: Yes - Plan Plan:: UTI (urinary tract infection) Progressively increasing urinary frequency and incontinence in the past couple of weeks Likely confounding mental status Pathologic UA on admission PLAN - Continue ceftriaxone - F/U on Urine culture Closed proximal fracture of left humerus and multiple fingers 2/2 fall Deconditioning Came to the ED 2 days ago after fall Evaluated by orthopedics who recommended conservative management with f/u on Tuesday to evaluate for surgery PLAN - Pain management - F/U with orthopedics on Tuesday Primary biliary cirrhosis, MELD-Na 13 Abnormal LFTs (liver function tests) Hypoalbuminemia Thrombocytopenia Mortality according to MELD Na 6% No previous GI bleeds or coagulopathy Probably worsening encephalopathy PLAN - Continue home vitamins - Continue Rifaximin - Continue Lactulose Hypertension BP trend 91-142/59-96 Orthostatic Likely 2/2 multiple BM's PLAN - Continue home meds - Hydralazine 10m for BP >180/110 - Encourage PO intake Hypothyroidism Home medication dose pending Could be affecting mental status TSH extremely low, likely oversupplemented PLAN - Continue home med for now - Recommend PCP to adjust as an outpatient Dyslipidemia No acute issues PLAN - Continue home med Hypomagnesemia Replace PLAN - repeat levels in AM Multifactorial altered mental status, resolved Hepatic encephalopathy with hyperammonemia, resolved PROPHYLAXIS DVT- Lovenox GI-not indicated CODE STATUS: FULL CODE NEXT OF KIN: Tomeka Darnell, daughter, #[phone] DISPOSITION: Patient will be remain admitted, pending PT/OT evaluation in the AM with discharge recommendations and case management/social service manager coordination.
[2019-03-25] MEDS: cefTRIAXone 1 GM in Sodium Chloride 0.9% 100 ML IV SCH (10:05)
[2019-03-25] MEDS ORDERED: Magnesium Sulfate/Water 2 GM in Premix Bag 1 BAG IV ONE (15:02)
[2019-03-26] MEDS: Lactulose Soln 10 GM/15 ML 30 ML UD Cup PO SCH ×4 (03:00→20:45)
[2019-03-26] MEDS: Pantoprazole 40 MG Tab.CR PO SCH ×2 (05:03→06:37)
[2019-03-26] MEDS: Levothyroxine 125 MCG Tab PO SCH (05:03)
[2019-03-26] MEDS: Ketorolac 15 MG/ML SDV IVPUSH PRN ×3 (08:28→22:30)
[2019-03-26] MEDS: Calcium Carbonate/Vitamin D3 600 MG-200 Units Tab PO SCH (08:30)
[2019-03-26] MEDS: cefTRIAXone 1 GM in Sodium Chloride 0.9% 100 ML IV SCH (08:32)
[2019-03-26] MEDS: URSODIOL 250 MG PO SCH ×2 (08:33→20:45)
[2019-03-26] MEDS: PHYTONADIONE 100 MCG PO SCH (08:33)
[2019-03-26] MEDS: Rifaximin 550 MG Tab PO SCH ×2 (08:33→20:45)
[2019-03-26] MEDS: Sertraline 50 MG Tab PO SCH (08:33)
[2019-03-26] MEDS: Spironolactone 25 MG Tab PO SCH (08:33)
[2019-03-26] MEDS: VITAMIN A PO SCH (08:34)
[2019-03-26] MEDS: VITAMIN E 180 MG PO SCH (08:34)
[2019-03-26] MEDS ORDERED: Magnesium Sulfate/Water 4 GM in Premix Bag 1 BAG IV ONE (12:30)
--- NOTE | 2019-03-26 17:25 | PCM.PN ---
- General Info Date of Service: 03/26/19 Subjective Update: Slept through the night Tolerating diet Ambulating with assistance - Patient Data Vitals - Most Recent: Last Vital Signs Temp 36.7 C 03/26/19 11:37 Pulse 76 03/26/19 11:37 Resp 20 03/26/19 11:37 BP 141/88 H 03/26/19 11:38 Pulse Ox 97 03/26/19 11:37 Orthostatic Blood Pressure [ 91/78 Standing] Orthostatic Blood Pressure [ 111/76 Sitting] Weight - Most Recent: 84.232 kg - Exam General: Alert, Oriented, Cooperative, No Acute Distress HEENT: Pupils Equal, Pupils Reactive Neck: Supple, Trachea Midline, No JVD, No Thyromegaly Lungs: Clear to Auscultation, Normal Respiratory Effort Cardiovascular: Regular Rate, Regular Rhythm, No Murmurs. No: Gallops, Rubs GI/Abdominal Exam: Normal Bowel Sounds, Soft, Non-Tender, No Distention Back Exam: Normal Inspection Neurological: No New Focal Deficit - Problem List & Annotations (1) Altered mental status SNOMED Code(s): 482092931 Code(s): R41.82 - ALTERED MENTAL STATUS, UNSPECIFIED Status: Acute Current Visit: Yes (2) Abnormal LFTs (liver function tests) SNOMED Code(s): 700511896 Code(s): R94.5 - ABNORMAL RESULTS OF LIVER FUNCTION STUDIES Status: Acute Current Visit: Yes (3) Dyslipidemia SNOMED Code(s): 045715997 Code(s): E78.5 - HYPERLIPIDEMIA, UNSPECIFIED Status: Acute Current Visit : Yes (4) Fracture of humerus, proximal, left, closed SNOMED Code(s): 82823485 Code(s): S42.202A - UNSP FRACTURE OF UPPER END OF LEFT HUMERUS, INIT FOR CLOS FX Status: Acute Current Visit: Yes Qualifiers: Encounter type: initial encounter Fracture morphology: other fracture Fracture alignment: nondisplaced Qualified Code(s): S42.295A - Other nondisplaced fracture of upper end of left humerus, initial encounter for closed fracture (5) Fracture of multiple fingers SNOMED Code(s): 38518613 Code(s): S62.609A - FRACTURE OF UNSP PHALANX OF UNSP FINGER, INIT FOR CLOS FX Status: Acute Current Visit: Yes Qualifiers: Encounter type: initial encounter Fracture type: closed Qualified Code(s) : S62.609A - Fracture of unspecified phalanx of unspecified finger, initial encounter for closed fracture (6) Hepatic encephalopathy SNOMED Code(s): 39076761 Code(s): K72.90 - HEPATIC FAILURE, UNSPECIFIED WITHOUT COMA Status: Acute Current Visit: Yes (7) Hyperammonemia SNOMED Code(s): 8035472 Code(s): E72.20 - DISORDER OF UREA CYCLE METABOLISM, UNSPECIFIED Status: Acute Current Visit: Yes (8) Hypoalbuminemia SNOMED Code(s): 002000513 Code(s): E88.09 - OTH DISORDERS OF PLASMA-PROTEIN METABOLISM, NEC Status: Acute Current Visit: Yes (9) Hypomagnesemia SNOMED Code(s): 850295328 Code(s): E83.42 - HYPOMAGNESEMIA Status: Acute Current Visit: Yes (10) Hypothyroidism SNOMED Code(s): 84524854 Code(s): E03.9 - HYPOTHYROIDISM, UNSPECIFIED Status: Acute Current Visit : Yes (11) Physical deconditioning SNOMED Code(s): 51500672387508 Code(s): R53.81 - OTHER MALAISE Status: Acute Current Visit: Yes (12) Primary biliary cirrhosis SNOMED Code(s): 43041633 Code(s): K74.3 - PRIMARY BILIARY CIRRHOSIS Status: Acute Current Visit: Yes (13) Thrombocytopenia SNOMED Code(s): 469587950 Code(s): D69.6 - THROMBOCYTOPENIA, UNSPECIFIED Status: Acute Current Visit: Yes (14) UTI (urinary tract infection) SNOMED Code(s): 70070960 Code(s): N39.0 - URINARY TRACT INFECTION, SITE NOT SPECIFIED Status: Acute Current Visit: Yes Qualifiers: Urinary tract infection type: site unspecified Hematuria presence: without hematuria Qualified Code(s): N39.0 - Urinary tract infection, site not specified (15) Orthostatic dizziness SNOMED Code(s): 225014100 Code(s): R42 - DIZZINESS AND GIDDINESS Status: Acute Current Visit: Yes - Problem List Review Problem List Initiated/Reviewed/Updated: Yes - Plan Plan:: UTI (urinary tract infection) 2/2 Strep. anginosus Progressively increasing urinary frequency and incontinence in the past couple of weeks Likely confounding mental status Strep sensitive to ceftriaxone PLAN - Ceftriaxone day 3, discontinue after this dose Closed proximal fracture of left humerus and multiple fingers 2/2 fall Deconditioning Came to the ED 2 days ago after fall Evaluated by orthopedics who recommended conservative management with f/u on Tuesday to evaluate for surgery PLAN - Pain management - F/U with orthopedics Primary biliary cirrhosis, MELD-Na 13 Abnormal LFTs (liver function tests) Hypoalbuminemia Thrombocytopenia Mortality according to MELD Na 6% No previous GI bleeds or coagulopathy Probably worsening encephalopathy PLAN - Continue home vitamins - Continue Rifaximin - Continue Lactulose Hypertension BP trend 119-151/71-87 PLAN - Continue home meds - Hydralazine 10m for BP >180/110 Hypothyroidism Home medication dose pending Could be affecting mental status TSH extremely low, likely oversupplemented PLAN - Continue home med for now - Recommend PCP to adjust as an outpatient Dyslipidemia No acute issues PLAN - Continue home med Hypomagnesemia Replace PLAN - repeat levels in AM Multifactorial altered mental status, resolved Hepatic encephalopathy with hyperammonemia, resolved PROPHYLAXIS DVT- Lovenox GI-not indicated CODE STATUS: FULL CODE NEXT OF KIN: Tomeka Darnell, daughter, #[phone] DISPOSITION: Patient will be remain admitted, PT recommending SNF, pending acceptance. Patient requiring hospitalization for more than 96 hours due to placement coordination.
[2019-03-27] MEDS: Lactulose Soln 10 GM/15 ML 30 ML UD Cup PO SCH ×2 (04:00→09:34)
[2019-03-27] MEDS: Levothyroxine 125 MCG Tab PO SCH (05:58)
[2019-03-27] MEDS: Pantoprazole 40 MG Tab.CR PO SCH ×2 (05:58→07:05)
[2019-03-27] MEDS: Ketorolac 15 MG/ML SDV IVPUSH PRN (06:15)
[2019-03-27] MEDS: Spironolactone 25 MG Tab PO SCH (09:38)
[2019-03-27] MEDS: Calcium Carbonate/Vitamin D3 600 MG-200 Units Tab PO SCH (09:40)
[2019-03-27] MEDS: Rifaximin 550 MG Tab PO SCH (09:40)
[2019-03-27] MEDS: Sertraline 50 MG Tab PO SCH (09:41)
[2019-03-27 09:42] VITALS: BP 118/74; PULSE 84
[2019-03-27] MEDS: VITAMIN E 180 MG PO SCH (09:42)
[2019-03-27] MEDS: VITAMIN A PO SCH (09:43)
[2019-03-27] MEDS: URSODIOL 250 MG PO SCH (09:43)
[2019-03-27] MEDS: PHYTONADIONE 100 MCG PO SCH (09:43)
[2019-03-27] MEDS: cefTRIAXone 1 GM in Sodium Chloride 0.9% 100 ML IV SCH (09:46)
--- NOTE | 2019-03-27 09:46 | PCM.DCSUM1 ---
Discharge Summary - Hospital Course HPI Initial Comments: This is a 73 year old female who was brought to the ED by family members for worsening altered mental status. Found to have a UTI and elevated amoonia in the ED. CT head ruled out active disease. Admitted on ceftriaxone and lactulose. Mental status back at baseline. Evaluated by PT who recommended SNF for placement. Accepted at [facility]. Diagnosis: Stroke: No - Discharge Data Discharge Date: 03/27/19 Discharge Disposition: DC/Tfer to SNF 03 Condition: Good - Referral to Home Health Primary Care Physician: Jamie Tolentino MD - Discharge Diagnosis/Problem(s) (1) Altered mental status SNOMED Code(s): 657204962 ICD Code: R41.82 - ALTERED MENTAL STATUS, UNSPECIFIED Status: Acute (2) Abnormal LFTs (liver function tests) SNOMED Code(s): 603558057 ICD Code: R94.5 - ABNORMAL RESULTS OF LIVER FUNCTION STUDIES Status: Acute (3) Dyslipidemia SNOMED Code(s): 630025432 ICD Code: E78.5 - HYPERLIPIDEMIA, UNSPECIFIED Status: Acute (4) Fracture of humerus, proximal, left, closed SNOMED Code(s): 38681794 ICD Code: S42.202A - UNSP FRACTURE OF UPPER END OF LEFT HUMERUS, INIT FOR CLOS FX Status: Acute Qualifiers: Encounter type: initial encounter Fracture morphology: other fracture Fracture alignment: nondisplaced Qualified Code(s): S42.295A - Other nondisplaced fracture of upper end of left humerus, initial encounter for closed fracture (5) Fracture of multiple fingers SNOMED Code(s): 91171215 ICD Code: S62.609A - FRACTURE OF UNSP PHALANX OF UNSP FINGER, INIT FOR CLOS FX Status: Acute Qualifiers: Encounter type: initial encounter Fracture type: closed Qualified Code(s) : S62.609A - Fracture of unspecified phalanx of unspecified finger, initial encounter for closed fracture (6) Hepatic encephalopathy SNOMED Code(s): 17178053 ICD Code: K72.90 - HEPATIC FAILURE, UNSPECIFIED WITHOUT COMA Status: Acute (7) Hyperammonemia SNOMED Code(s): 7375688 ICD Code: E72.20 - DISORDER OF UREA CYCLE METABOLISM, UNSPECIFIED Status: Acute (8) Hypoalbuminemia SNOMED Code(s): 353265668 ICD Code: E88.09 - OTH DISORDERS OF PLASMA-PROTEIN METABOLISM, NEC Status: Acute (9) Hypomagnesemia SNOMED Code(s): 485282437 ICD Code: E83.42 - HYPOMAGNESEMIA Status: Acute (10) Hypothyroidism SNOMED Code(s): 17923799 ICD Code: E03.9 - HYPOTHYROIDISM, UNSPECIFIED Status: Acute (11) Physical deconditioning SNOMED Code(s): 27020272241815 ICD Code: R53.81 - OTHER MALAISE Status: Acute (12) Primary biliary cirrhosis SNOMED Code(s): 76969733 ICD Code: K74.3 - PRIMARY BILIARY CIRRHOSIS Status: Acute (13) Thrombocytopenia SNOMED Code(s): 521875278 ICD Code: D69.6 - THROMBOCYTOPENIA, UNSPECIFIED Status: Acute (14) UTI (urinary tract infection) SNOMED Code(s): 48494386 ICD Code: N39.0 - URINARY TRACT INFECTION, SITE NOT SPECIFIED Status: Acute Qualifiers: Urinary tract infection type: site unspecified Hematuria presence: without hematuria Qualified Code(s): N39.0 - Urinary tract infection, site not specified (15) Orthostatic dizziness SNOMED Code(s): 495774539 ICD Code: R42 - DIZZINESS AND GIDDINESS Status: Acute - Patient Summary/Data Consults: Consultations 03/23/19 20:37 OT Evaluation and Treatment [CONS] Routine PT Evaluation and Treatment [CONS] Routine - Patient Instructions Diet: Usual Diet as Tolerated Activity: As Tolerated - Discharge Plan Prescriptions/Med Rec: Ibuprofen 200 mg PO TID PRN 30 Days tablet PRN Reason: Pain Lactulose [Cephulac] 20 gm PO TID 30 Days #90 cup Home Medications: Home Meds Levothyroxine 125 mcg PO DAILY 03/21/19 [History] Nadolol [Corgard] 40 mg PO DAILY 03/21/19 [History] Omeprazole 40 mg PO DAILY 03/21/19 [History] Rifaximin [Xifaxan] 550 mg PO BID 03/21/19 [History] Sertraline [Zoloft] 50 mg PO DAILY 03/21/19 [History] Spironolactone [Aldactone] 12.5 mg PO DAILY 03/21/19 [History] Ursodiol 250 mg PO BID 03/21/19 [History] oxyCODONE HCl [Roxicodone] 1 - 2 mg PO Q4H PRN #28 tablet 03/21/19 [Rx] Calcium Carbonate/Vitamin D3 [Calcium 1,000 + D3 Caplet] 1,200 mg PO DAILY 03/24 [History] Phytonadione (Vit K1) [Vitamin K-1] 100 mcg PO DAILY 03/24/19 [History] Vitamin A 8,000 intunit PO DAILY 03/24/19 [History] Vitamin E 180 mg PO DAILY 03/24/19 [History] Ibuprofen 200 mg PO TID PRN 30 Days tablet 03/27/19 [Rx] Lactulose [Cephulac] 20 gm PO TID 30 Days #90 cup 03/27/19 [Rx] Patient Handouts: Hepatic Encephalopathy, Sepsis, Adult, Urinary Tract Infection, Adult Referrals: Von Garrett MD [Ordering Only Provider] - Mitchel Childs MD [Physician] - 03/30/19 11:35 am (Orthopedics: Your 03/27/19 appointment has been chagned to 03/30/19.) Jamie Tolentino MD [Primary Care Provider] - 04/04/19 9:00 am (Please check in at 8:30 am.) - Discharge Summary/Plan Comment DC Time >30 min.: Yes - General Info Date of Service: 03/27/19 - Patient Data Vitals - Most Recent: Last Vital Signs Temp 36.8 C 03/27/19 06:01 Pulse 84 03/27/19 09:35 Resp 20 03/27/19 07:39 BP 118/74 03/27/19 09:35 Pulse Ox 98 03/27/19 07:39 Orthostatic Blood Pressure [ 91/78 Standing] Orthostatic Blood Pressure [ 111/76 Sitting] Weight - Most Recent: 83.37 kg I&O - Last 24 hours: Intake & Output 03/26/19 03/27/19 03/27/19 22:59 06:59 14:59 Intake Total 500 800 Output Total 600 500 Balance -100 300 Lab Results - Last 24 hrs: Laboratory Results - last 24 hr 03/26/19 03/26/19 Range/Units 11:20 11:20 WBC 5.42 (3.98-10.04) K/mm3 RBC 3.46 L (3.98-5.22) M/mm3 Hgb 11.2 (11.2-15.7) gm/dl Hct 32.8 L (34.1-44.9) % MCV 94.8 (79.4-94.8) fl MCH 32.4 H (25.6-32.2) pg MCHC 34.1 (32.2-35.5) g/dl RDW Std Deviation 58.4 H (36.4-46.3) fL Plt Count 82 L (182-369) K/mm3 MPV 11.2 (9.4-12.3) fl Neut % (Auto) 58.6 (34.0-71.1) % Lymph % (Auto) 22.7 (19.3-51.7) % [place] % (Auto) 14.9 H (4.7-12.5) % Eos % (Auto) 3.0 (0.7-5.8) Baso % (Auto) 0.4 (0.1-1.2) % Neut # (Auto) 3.18 (1.56-6.13) K/mm3 Lymph # (Auto) 1.23 (1.18-3.74) K/mm3 [place] # (Auto) 0.81 H (0.24-0.36) K/mm3 Eos # (Auto) 0.16 (0.04-0.36) K/mm3 Baso # (Auto) 0.02 (0.01-0.08) K/mm3 Manual Slide Review Abnormal smear Sodium 140 (136-145) mEq/L Potassium 3.8 (3.5-5.1) mEq/L Chloride 108 H (98-107) mEq/L Carbon Dioxide 25 (21-32) mEq/L Anion Gap 10.8 (5-15) BUN 8 (7-18) mg/dL Creatinine 0.6 (0.55-1.02) mg/dL Est Cr Clr Drug Dosing 90.30 mL/min Estimated GFR (MDRD) > 60 (>60) mL/min BUN/Creatinine Ratio 13.3 L (14-18) Glucose 114 (83-115) mg/dL Calcium 8.2 L (8.5-10.1) mg/dL Magnesium 1.4 L (1.8-2.4) mg/dl EMILIANA Results - Last 24 hrs: Microbiology 03/23/19 17:49 Urine Culture - Final Urine, Bladder Streptococcus Anginosus Med Orders - Current: Current Medications Calcium Carbonate (Calcium Carbonate/Vitamin D 600 Mg-200 Unit) 2 tab PO DAILY [facility] Last Admin: 03/27/19 09:40 Dose: 2 tab Hydralazine HCl (Apresoline) 10 mg IV Q2H PRN PRN Reason: hypertension Ceftriaxone Sodium 1 gm/ (Sodium Chloride) 100 mls @ 200 mls/hr IV Q24H [facility] Stop: 03/28/19 09:01 Last Admin: 03/26/19 08:32 Dose: 200 mls/hr Ibuprofen (Motrin) 400 mg PO Q6H PRN PRN Reason: Pain (mild 1-3) Ketorolac Tromethamine (Toradol) 15 mg IVPUSH Q6H PRN PRN Reason: Pain (moderate 4-6) Last Admin: 03/27/19 06:15 Dose: 15 mg Lactulose (Cephulac) 20 gm PO Q6H [facility] Last Admin: 03/27/19 09:34 Dose: 20 gm Levothyroxine Sodium (Levothyroxine) 125 mcg PO ACBRK [facility] Last Admin: 03/27/19 05:58 Dose: 125 mcg Nadolol (Naldol) 40 mg PO DAILY [facility] Last Admin: 03/27/19 09:35 Dose: 40 mg Ondansetron HCl (Zofran) 4 mg IV Q6H PRN PRN Reason: Nausea/Vomiting Pantoprazole Sodium (Protonix) 40 mg PO DAILY@0700 [facility] Last Admin: 03/27/19 07:05 Dose: Not Given Phytonadione (Vit K1 () 100 Mcg) 0 each PO DAILY [facility] Last Admin: 03/27/19 09:43 Dose: 1 each Vitamin A 8,000 Int (Unit) 0 each PO DAILY [facility] Last Admin: 03/27/19 09:43 Dose: 1 each Vitamin E 180 Mg 0 each PO DAILY [facility] Last Admin: 03/27/19 09:42 Dose: 1 each Rifaximin (Xifaxan) 550 mg PO BID [facility] Last Admin: 03/27/19 09:40 Dose: 550 mg Sertraline HCl (Zoloft) 50 mg PO DAILY [facility] Last Admin: 03/27/19 09:41 Dose: 50 mg Sodium Chloride (Saline Flush) 10 ml FLUSH ASDIRECTED PRN PRN Reason: Keep Vein Open Last Admin: 03/23/19 18:44 Dose: 10 ml Spironolactone (Aldactone) 12.5 mg PO DAILY [facility] Last Admin: 03/27/19 09:38 Dose: 12.5 mg Ursodiol (Duglas 250) 250 mg PO BID [facility] Last Admin: 03/27/19 09:43 Dose: 250 mg Discontinued Medications Sodium Chloride (Normal Saline) 1,000 mls @ 125 mls/hr IV ASDIRECTED [facility] Last Admin: 03/23/19 18:44 Dose: 125 mls/hr Ceftriaxone Sodium 1 gm/ (Sodium Chloride) 100 mls @ 200 mls/hr IV ONETIME ONE Stop: 03/23/19 19:39 Last Admin: 03/23/19 19:16 Dose: 200 mls/hr Lactated Ringer's (Ringers, Lactated) 1,000 mls @ 150 mls/hr IV ASDIRECTED [facility] Last Admin: 03/25/19 10:12 Dose: 150 mls/hr Magnesium Sulfate 4 gm/ Premix 50 mls @ 12.5 mls/hr IV ONETIME ONE Stop: 03/24/19 00:59 Last Admin: 03/23/19 22:24 Dose: 12.5 mls/hr Magnesium Sulfate 2 gm/ Premix 50 mls @ 25 mls/hr IV ONETIME ONE Stop: 03/25/19 17:01 Last Admin: 03/25/19 15:39 Dose: 25 mls/hr Magnesium Sulfate 4 gm/ Premix 100 mls @ 25 mls/hr IV ONETIME ONE Stop: 03/26/19 12:31 Last Admin: 03/26/19 13:51 Dose: 25 mls/hr Ketorolac Tromethamine (Toradol) 30 mg IV Q6H PRN PRN Reason: Pain (moderate 4-6) Stop: 03/28/19 20:38 Last Admin: 03/23/19 22:12 Dose: 30 mg Lactulose (Cephulac) 20 gm PO ONETIME ONE Stop: 03/23/19 19:11 Last Admin: 03/23/19 19:22 Dose: 20 gm Ursodiol (Duglas 250) 250 mg PO ONETIME ONE Stop: 03/23/19 22:46 Last Admin: 03/23/19 22:45 Dose: 250 mg
[2019-03-29] MEDS ORDERED: Ibuprofen 400 MG Tab PO PRN (02:30)
== END 2019-03-27 13:48 | DRG 690 ==
LOC: JD.ED 17:28 → JD.MS 20:03
PROVIDERS: ADMIT Internal Medicine; ATTEND Internal Medicine
DX: N39.0 Urinary tract infection, site not specified (principal); E72.20 Disorder of urea cycle metabolism, unspecified; S42.211A Unspecified displaced fracture of surgical neck of right humerus, initial encounter for closed fracture; S62.602A Fracture of unspecified phalanx of right middle finger, initial encounter for closed fracture; S62.609D Fracture of unspecified phalanx of unspecified finger, subsequent encounter for fracture with routine healing; S42.295D Other nondisplaced fracture of upper end of left humerus, subsequent encounter for fracture with routine healing; W19.XXXD Unspecified fall, subsequent encounter; S62.606A Fracture of unspecified phalanx of right little finger, initial encounter for closed fracture; R94.5 Abnormal results of liver function studies; E78.5 Hyperlipidemia, unspecified; Z79.890 Hormone replacement therapy; K72.90 Hepatic failure, unspecified without coma; E83.42 Hypomagnesemia; E03.9 Hypothyroidism, unspecified; K74.3 Primary biliary cirrhosis; D69.6 Thrombocytopenia, unspecified; I10 Essential (primary) hypertension; E78.00 Pure hypercholesterolemia, unspecified; H54.7 Unspecified visual loss; W19.XXXA Unspecified fall, initial encounter; Z79.899 Other long term (current) drug therapy; Z23 Encounter for immunization
CPT/HCPCS: 36415; 70450; 70450-26; 71250; 71250-26; 80048; 80053; 80306; 81001; 82140; 82607; 82746; 82962; 83605; 83735; 83880; 84100; 84443; 84484; 85025; 85027; 85610; 85652; 85730; 86140; 87086; 87088; 87184; 90662; 93005; 93010; 96365; 97110-GO; 97110-GP; 97116-GP; 97162-GP; 97166-GO; 97530-GO; 97535-GO; 99284; 99285-25; A9270-GY; G0008; G0480; J0696; J1885; J3475; J7030; J7040; J7120

== ENCOUNTER 2019-07-27 09:23 | Emergency (ER) | payer MEDICARE, BC ==
[2019-07-27] MEDS ORDERED: Sodium Chloride 0.9% 10 ML Syringe FLUSH PRN (10:03)
[2019-07-27] MEDS ORDERED: Sodium Chloride 0.9% 1,000 ML IV SCH (10:15)
--- NOTE | 2019-07-27 11:13 | EDM.PDOC ---
ED HPI GENERAL MEDICAL PROBLEM - General Chief Complaint: Genitourinary Problem Stated Complaint: CONFUSED, HIP PAIN Time Seen by Provider: 07/27/19 09:43 Source of Information: Reports: Patient, Family History Limitations: Reports: Altered Mental Status - History of Present Illness INITIAL COMMENTS - FREE TEXT/NARRATIVE: The patient presents with her family for increased confusion. She has a history of idiopathic biliary cirrhosis. She will get confused at times when her ammonia increases. She sees gastroenterology regularly. She recently had a UTI and just finished antibiotics. She also says she has some chest pain. She is not making a lot of sense. She denies fever or chills but she does have a cough. She has no abdominal pain, nausea or vomiting. She has some right hip pain and low back pain. She had an MRI done by Dr Tolentino a few days ago. Onset: Gradual Duration: Day(s): Severity: Moderate Improves with: Reports: None Worsens with: Reports: None Associated Symptoms: Reports: No Other Symptoms Left Hip Pain Score (Numeric/FACES): 5 - Related Data Allergies Allergy/AdvReac Type Severity Reaction Status Date / Time No Known Allergies Allergy Verified 07/27/19 09:43 Home Meds: Home Meds Levothyroxine 125 mcg PO DAILY 03/21/19 [History] Nadolol [Corgard] 40 mg PO DAILY 03/21/19 [History] Omeprazole 40 mg PO DAILY 03/21/19 [History] Rifaximin [Xifaxan] 550 mg PO BID 03/21/19 [History] Sertraline [Zoloft] 50 mg PO DAILY 03/21/19 [History] Spironolactone [Aldactone] 12.5 mg PO DAILY 03/21/19 [History] ursodioL [Ursodiol] 500 mg PO BID 03/21/19 [History] Calcium Carbonate/Vitamin D3 [Calcium 1,000 + D3 Caplet] 1,200 mg PO DAILY 03/24 [History] Phytonadione (Vit K1) [Vitamin K-1] 100 mcg PO DAILY 03/24/19 [History] Vitamin A 8,000 intunit PO DAILY 03/24/19 [History] Vitamin E 180 mg PO DAILY 03/24/19 [History] Ibuprofen 200 mg PO TID PRN 30 Days tablet 11/05/19 [Rx] Cyclobenzaprine [Flexeril] 5 mg PO BIDAC PRN 07/27/19 [History] Lactulose [Cephulac] 20 gm PO DAILY 07/27/19 [History] traMADol [Ultram] 50 mg PO Q4HR PRN 07/27/19 [History] Past Medical History HEENT History: Reports: Impaired Vision Other HEENT History: wears glasses, has hearing aides but hasn't used Cardiovascular History: Reports: High Cholesterol, Hypertension Respiratory History: Reports: None Gastrointestinal History: Reports: Other (See Below) Other Gastrointestinal History: Patient has primary idiopathic biliary cirrhosis. He is followed every 3-6 months by gastroenterology. Genitourinary History: Reports: None [employer] History: Reports: Musculoskeletal History: Reports: Fracture Other Musculoskeletal History: left proximal humerus, right 3-5 fingers. Neurological History: Reports: None Psychiatric History: Reports: None Endocrine/Metabolic History: Reports: Hypothyroidism Hematologic History: Reports: None Other Hematologic History: low platlet counts Immunologic History: Reports: None Oncologic (Cancer) History: Reports: None Other Oncologic History: right cheek removed, currently has a spot on her back. Dermatologic History: Reports: None - Infectious Disease History Infectious Disease History: Reports: None - Past Surgical History Head Surgeries/Procedures: Reports: None Social & Family History - Family History Family Medical History: Noncontributory - Tobacco Use Smoking Status *Q: Never Smoker - Caffeine Use Caffeine Use: Reports: Coffee Other Caffeine Use: 2-3 cups of coffee a day - Recreational Drug Use Recreational Drug Use: No - Living Situation & Occupation Living situation: Reports: Occupation: Retired ED ROS GENERAL - Review of Systems Review Of Systems: See Below Constitutional: Reports: No Symptoms HEENT: Reports: No Symptoms Respiratory: Reports: No Symptoms Cardiovascular: Reports: No Symptoms Endocrine: Reports: No Symptoms GI/Abdominal: Reports: No Symptoms : Reports: No Symptoms Musculoskeletal: Reports: Other (Right hip and right low back pain) ED EXAM, GI/ABD - Physical Exam Exam: See Below Exam Limited By: No Limitations General Appearance: Alert, No Apparent Distress Ears: Normal External Exam Nose: Normal Inspection Head: Atraumatic, Normocephalic Neck: Normal Inspection Respiratory/Chest: No Respiratory Distress, Lungs Clear, Normal Breath Sounds Cardiovascular: Regular Rate, Rhythm, No Edema, No Murmur GI/Abdominal Exam: Soft, Non-Tender, No Organomegaly, No Mass Extremities: Other (Mild pain upon palpation to the right hip) Neurological: Alert, Oriented, No Motor/Sensory Deficits EKG INTERPRETATION EKG Date: 07/27/19 Time: 10:09 Rhythm: NSR Rate (Beats/Min): 77 [place]: Normal P-Wave: Present QRS: Normal ST-T: Normal QT: Normal EKG Interpretation Comments: Unifocal PVCs Course - Vital Signs Last Recorded V/S: Last Vital Signs Temp 98.5 F 07/27/19 09:39 Pulse 81 07/27/19 09:39 Resp 17 07/27/19 09:39 BP 119/71 07/27/19 09:39 Pulse Ox 97 07/27/19 09:39 - Orders/Labs/Meds Orders: Active Orders 24 hr Category Date Time Status EKG Documentation Completion [RC] ASDIRECTED Care 07/27/19 10:05 Active Peripheral IV Care [RC] . DIRECTED Care 07/27/19 10:04 Active Sodium Chloride 0.9% [Normal Saline] 1,000 ml Med 07/27/19 10:15 Active IV ASDIRECTED Sodium Chloride 0.9% [Saline Flush] Med 07/27/19 10:03 Active 10 ml FLUSH ASDIRECTED PRN Peripheral IV Insertion Adult [OM.PC] Stat Oth 07/27/19 10:03 Ordered EKG 12 Lead [EK] Stat Ther 07/27/19 10:05 Ordered Medication Orders Sodium Chloride (Normal Saline) 1,000 mls @ 125 mls/hr IV ASDIRECTED CARLOS Last Admin: 07/27/19 10:31 Dose: 125 mls/hr Sodium Chloride (Saline Flush) 10 ml FLUSH ASDIRECTED PRN PRN Reason: Keep Vein Open Last Admin: 07/27/19 10:31 Dose: 10 ml Labs: Laboratory Tests 07/27/19 07/27/19 07/27/19 Range/Units 10:11 10:15 10:15 WBC 6.70 (3.98-10.04) K/mm3 RBC 3.92 L (3.98-5.22) M/mm3 Hgb 13.1 D (11.2-15.7) gm/dl Hct 37.6 (34.1-44.9) % MCV 95.9 H (79.4-94.8) fl MCH 33.4 H (25.6-32.2) pg MCHC 34.8 (32.2-35.5) g/dl RDW Std Deviation 61.9 H (36.4-46.3) fL Plt Count 120 L (182-369) K/mm3 MPV 11.4 (9.4-12.3) fl Neut % (Auto) 64.8 (34.0-71.1) % Lymph % (Auto) 15.2 L (19.3-51.7) % [place] % (Auto) 14.2 H (4.7-12.5) % Eos % (Auto) 4.0 (0.7-5.8) Baso % (Auto) 1.2 (0.1-1.2) % Neut # (Auto) 4.34 (1.56-6.13) K/mm3 Lymph # (Auto) 1.02 L (1.18-3.74) K/mm3 [place] # (Auto) 0.95 H (0.24-0.36) K/mm3 Eos # (Auto) 0.27 (0.04-0.36) K/mm3 Baso # (Auto) 0.08 (0.01-0.08) K/mm3 Manual Slide Review Normal smear PT 12.3 H (9.7-12.0) SECONDS INR 1.14 APTT 27 (22-31) SECONDS Sodium (136-145) mEq/L Potassium (3.5-5.1) mEq/L Chloride (98-107) mEq/L Carbon Dioxide (21-32) mEq/L Anion Gap (5-15) BUN (7-18) mg/dL Creatinine (0.55-1.02) mg/dL Est Cr Clr Drug Dosing mL/min Estimated GFR (MDRD) (>60) mL/min BUN/Creatinine Ratio (14-18) Glucose (83-115) mg/dL Calcium (8.5-10.1) mg/dL Total Bilirubin (0.2-1.0) mg/dL AST (15-37) U/L ALT (14-59) U/L Alkaline Phosphatase (46-116) U/L Ammonia (11-32) umol/L Troponin I (0.00-0.056) ng/mL Total Protein (6.4-8.2) g/dl Albumin (3.4-5.0) g/dl Globulin gm/dL Albumin/Globulin Ratio (1-2) Urine Color Yellow (Yellow) Urine Appearance Clear (Clear) Urine pH 7.0 (5.0-8.0) Ur Specific [place] 1.020 (1.005-1.030) Urine Protein Negative (Negative) Urine Glucose (UA) Negative (Negative) Urine Ketones Negative (Negative) Urine Occult Blood Negative (Negative) Urine Nitrite Negative (Negative) Urine Bilirubin Negative (Negative) Urine Urobilinogen 1.0 (0.2-1.0) Ur Leukocyte Esterase Negative (Negative) Urine RBC 0-5 (0-5) /hpf Urine WBC 5-10 H (0-5) /hpf Ur Squamous Epith Cells 0-5 (0-5) /hpf Urine Bacteria Not seen (FEW) /hpf Urine Mucus Not seen (FEW) /hpf 07/27/19 07/27/19 Range/Units 10:15 10:15 WBC (3.98-10.04) K/mm3 RBC (3.98-5.22) M/mm3 Hgb (11.2-15.7) gm/dl Hct (34.1-44.9) % MCV (79.4-94.8) fl MCH (25.6-32.2) pg MCHC (32.2-35.5) g/dl RDW Std Deviation (36.4-46.3) fL Plt Count (182-369) K/mm3 MPV (9.4-12.3) fl Neut % (Auto) (34.0-71.1) % Lymph % (Auto) (19.3-51.7) % Gulf % (Auto) (4.7-12.5) % Eos % (Auto) (0.7-5.8) Baso % (Auto) (0.1-1.2) % Neut # (Auto) (1.56-6.13) K/mm3 Lymph # (Auto) (1.18-3.74) K/mm3 [place] # (Auto) (0.24-0.36) K/mm3 Eos # (Auto) (0.04-0.36) K/mm3 Baso # (Auto) (0.01-0.08) K/mm3 Manual Slide Review PT (9.7-12.0) SECONDS INR APTT (22-31) SECONDS Sodium 136 (136-145) mEq/L Potassium 4.4 (3.5-5.1) mEq/L Chloride 105 (98-107) mEq/L Carbon Dioxide 26 (21-32) mEq/L Anion Gap 9.4 (5-15) BUN 11 (7-18) mg/dL Creatinine 0.7 (0.55-1.02) mg/dL Est Cr Clr Drug Dosing 74.80 mL/min Estimated GFR (MDRD) > 60 (>60) mL/min BUN/Creatinine Ratio 15.7 (14-18) Glucose 98 (83-115) mg/dL Calcium 9.0 (8.5-10.1) mg/dL Total Bilirubin 3.6 H (0.2-1.0) mg/dL AST 116 H (15-37) U/L ALT 47 (14-59) U/L Alkaline Phosphatase 404 H (46-116) U/L Ammonia < 10 L (11-32) umol/L Troponin I < 0.017 (0.00-0.056) ng/mL Total Protein 6.3 L (6.4-8.2) g/dl Albumin 2.4 L (3.4-5.0) g/dl Globulin 3.9 gm/dL Albumin/Globulin Ratio 0.6 L (1-2) Urine Color (Yellow) Urine Appearance (Clear) Urine pH (5.0-8.0) Ur Specific [place] (1.005-1.030) Urine Protein (Negative) Urine Glucose (UA) (Negative) Urine Ketones (Negative) Urine Occult Blood (Negative) Urine Nitrite (Negative) Urine Bilirubin (Negative) Urine Urobilinogen (0.2-1.0) Ur Leukocyte Esterase (Negative) Urine RBC (0-5) /hpf Urine WBC (0-5) /hpf Ur Squamous Epith Cells (0-5) /hpf Urine Bacteria (FEW) /hpf Urine Mucus (FEW) /hpf Meds: Medications Generic Name Dose Route Start Last Admin Trade Name Freq PRN Reason Stop Dose Admin Sodium Chloride 1,000 mls @ 125 mls/hr 07/27/19 10:15 07/27/19 10:31 Normal Saline IV 125 mls/hr ASDIRECTED CARLOS Administration Sodium Chloride 10 ml 07/27/19 10:03 07/27/19 10:31 Saline Flush FLUSH 10 ml ASDIRECTED PRN Administration Keep Vein Open Discontinued Medications Generic Name Dose Route Start Last Admin Trade Name Freq PRN Reason Stop Dose Admin Haloperidol Lactate 5 mg 07/27/19 15:31 07/27/19 16:23 Haldol IM 07/27/19 15:32 5 mg ONETIME ONE Administration - Re-Assessments/Exams Free Text/Narrative Re-Assessment/Exam: 07/27/19 11:15 I ordered an IV NS at 125mL/hr, labs, EKG and CXR. 07/27/19 17:41 Her EKG shows a NSR with no acute changes. Her CT shows nothing acute. Her CBC looks good. Her AST was elevated at 116. Her Alk Phos was elevated at 404. Her ammonia was low at less then 10. Her troponin is negative. Her UA shows no UTI. I talked to my hospitalist and she recommended an MRI of her head. The MRI shows multiple small areas of increased signal within the subcortical and periventricular white matter most likely representing small vessel ischemic demyelinations changes. I also got the MRI from [facility] and she has compression fractures at T12 and L1. I talked to my hospitalist and she felt the patient needs to go to [place]. I talked with STEFANIA Enrique in [place] and talked to the hospitalist Dr Abarca and he accepted the patient. Departure - Departure Time of Disposition: 17:50 Disposition: DC/Tfer to Acute Hospital 02 Condition: Fair Clinical Impression: Confusion, Primary biliary cirrhosis Fall Qualifiers: Encounter type: initial encounter Qualified Code(s): W19.XXXA - Unspecified fall, initial encounter Compression fx, thoracic spine Qualifiers: Encounter type: initial encounter Thoracic vertebra fracture level: T12 Qualified Code(s): S22.080A - Wedge compression fracture of T11-T12 vertebra, initial encounter for closed fracture Compression fracture of lumbosacral spine Qualifiers: Encounter type: initial encounter Fracture type: closed Qualified Code(s): S32.000A - Wedge compression fracture of unspecified lumbar vertebra, initial encounter for closed fracture - Discharge Information Referrals: Jamie oTlentino MD [Primary Care Provider] - Forms: ED Department Discharge Sepsis Event Note - Evaluation Sepsis Screening Result: No Definite Risk - Focused Exam Vital Signs: Vital Signs Temp Pulse Resp BP Pulse Ox 07/27/19 09:39 98.5 F 81 17 119/71 97 Date Exam was Performed: 07/27/19 Time Exam was Performed: 17:41 - My Orders Last 24 Hours: My Active Orders 07/27/19 10:03 Sodium Chloride 0.9% [Saline Flush] 10 ml FLUSH ASDIRECTED PRN Peripheral IV Insertion Adult [OM.PC] Stat 07/27/19 10:04 Peripheral IV Care [RC] . DIRECTED 07/27/19 10:05 EKG Documentation Completion [RC] ASDIRECTED EKG 12 Lead [EK] Stat 07/27/19 10:15 Sodium Chloride 0.9% [Normal Saline] 1,000 ml IV ASDIRECTED - Assessment/Plan Last 24 Hours: My Active Orders 07/27/19 10:03 Sodium Chloride 0.9% [Saline Flush] 10 ml FLUSH ASDIRECTED PRN Peripheral IV Insertion Adult [OM.PC] Stat 07/27/19 10:04 Peripheral IV Care [RC] . DIRECTED 07/27/19 10:05 EKG Documentation Completion [RC] ASDIRECTED EKG 12 Lead [EK] Stat 07/27/19 10:15 Sodium Chloride 0.9% [Normal Saline] 1,000 ml IV ASDIRECTED
--- NOTE | 2019-07-27 12:35 | CT ---
Head CT Technique: Multiple axial sections through the brain were obtained. Comparison: Prior head CT study of 03/23/19. Findings: Ventricles along with basal cisterns and sulci over the convexities are within normal limits for the patient's age. No abnormal parenchymal densities are seen. No evidence of intracranial hemorrhage. No midline shift or mass-effect is appreciated. Mild atherosclerotic calcification is seen within the carotid siphon. Visualized mastoid and visualized paranasal sinuses show nothing acute. No acute calvarial abnormality is appreciated. Impression: 1. Nothing acute is appreciated on noncontrast head CT exam. 2. No change is appreciated from previous head CT study. Diagnostic code #1 This report was dictated in [place] Standard Time
--- NOTE | 2019-07-27 14:56 | CR ---
Chest: Portable view of the chest was obtained. Comparison: Prior chest x-ray of 03/21/19. Heart size is slightly enlarged. Tortuous thoracic aorta is seen. Lungs are clear with no acute parenchymal change. Old fracture is noted within proximal left humerus. Impression: 1. Findings as noted above. 2. Nothing acute is seen on portable chest x-ray. Diagnostic code #2 Study was dictated in [place] Standard Time
[2019-07-27] MEDS ORDERED: Haloperidol Lactate 5 MG/ML SDV IM ONE (15:31)
--- NOTE | 2019-07-27 15:54 | MR ---
MRI brain Technique: T1 sagittal; T2, T1, FLAIR and diffusion axial; T1 coronal images were obtained. Comparison: Prior head CT exam performed earlier on the same day (11:55 AM). Findings: Ventricles along with basal cisterns and sulci over the convexities are within normal limits for the patient's age. Normal signal void is seen within the major cerebral arteries within the skull base. Mild areas of increased signal are seen within the periventricular and subcortical white matter which is most likely due to mild small vessel ischemic demyelination change. No acute diffusion abnormalities are seen. Impression: 1. Multiple small areas of increased signal within the subcortical and periventricular white matter most likely representing small vessel ischemic demyelination change. 2. No acute diffusion abnormalities are seen. Diagnostic code #2 Study was dictated in [place] Standard Time
[2019-07-27 18:38] VITALS: BP 130/70; PULSE 76
== END 2019-07-27 18:30 ==
LOC: JD.ED 09:23
DX: S22.080A Wedge compression fracture of T11-T12 vertebra, initial encounter for closed fracture (principal); S32.000A Wedge compression fracture of unspecified lumbar vertebra, initial encounter for closed fracture; K74.3 Primary biliary cirrhosis; E78.00 Pure hypercholesterolemia, unspecified; I10 Essential (primary) hypertension; E03.9 Hypothyroidism, unspecified; Z79.899 Other long term (current) drug therapy; X58.XXXA Exposure to other specified factors, initial encounter
CPT/HCPCS: 36415; 70450; 70551; 71045; 80053; 81001; 82140; 84484; 85025; 85610; 85730; 93005; 96360; 96361; 96372; 99285; J1630; J7030

== ENCOUNTER 2020-03-26 17:41 | Inpatient (IN) | payer MEDICARE, BC ==
[2020-03-26] MEDS ORDERED: HYDROmorphone 0.5 MG/0.5 ML Syringe IVPUSH ONE (18:09)
[2020-03-26] MEDS ORDERED: Ondansetron 4 MG/2 ML SDV IVPUSH ONE (18:10)
[2020-03-26] MEDS ORDERED: Sodium Chloride 0.9% 10 ML Syringe FLUSH PRN (18:17)
--- NOTE | 2020-03-26 18:58 | EDM.PDOC ---
ED HPI GENERAL MEDICAL PROBLEM - General Chief Complaint: Lower Extremity Injury/Pain Stated Complaint: [facility] Time Seen by Provider: 03/26/20 18:05 Source of Information: Reports: Patient, Alf Records, RN Notes Reviewed History Limitations: Reports: No Limitations - History of Present Illness INITIAL COMMENTS - FREE TEXT/NARRATIVE: Patient is a 74-year-old female presenting to the emergency department with complaints of pain and deformity to her right hip after having a fall at home. Patient lives at [facility] in the assisted living facility. She states that she was walking through her living room and tripped. She did hit her head but does not feel like she lost consciousness. She is mainly complaining of pain to her right hip. She did receive 50 mcg of fentanyl and Dilaudid 0.5 mg IV via EMS while in route to the facility. Patient denies any history of previous injury to this hip and has not had prosthesis. She denies any headache or vision changes at this time. Right Hip Pain Score (Numeric/FACES): 8 - Related Data Allergies Allergy/AdvReac Type Severity Reaction Status Date / Time milk Allergy Other Verified 03/26/20 22:38 Home Meds: Home Meds Levothyroxine 112 mcg PO DAILY 03/21/19 [History] Omeprazole 40 mg PO DAILY 03/21/19 [History] Rifaximin [Xifaxan] 550 mg PO BID 03/21/19 [History] Sertraline [Zoloft] 25 mg PO DAILY 03/21/19 [History] Spironolactone [Aldactone] 12.5 mg PO DAILY 03/21/19 [History] nadoloL [Corgard] 20 mg PO DAILY 03/21/19 [History] ursodioL [Ursodiol] 300 mg PO BID 03/21/19 [History] Ibuprofen 200 mg PO TID PRN 30 Days tablet 03/27/19 [Rx] Cyclobenzaprine [Flexeril] 5 mg PO BID PRN 07/27/19 [History] Lactulose [Cephulac] 20 gm PO DAILY 07/27/19 [History] Acetaminophen 650 mg PO Q4H PRN 03/26/20 [History] Benzonatate 100 mg PO TID PRN 03/26/20 [History] Calcium Carbonate/Vitamin D3 [Calcium 500-Vit D3 200 Caplet] 2 tab PO DAILY 03/26/20 [History] Cholecalciferol (Vitamin D3) [Vitamin D3] 5,000 unit PO DAILY 03/26/20 [History] Fexofenadine HCl [Mirian Allergy] 60 mg PO DAILY 03/26/20 [History] Simethicone 125 mg PO QIDPCANDBED 03/26/20 [History] Past Medical History HEENT History: Reports: Impaired Vision Other HEENT History: wears glasses, has hearing aides but hasn't used Cardiovascular History: Reports: High Cholesterol, Hypertension Respiratory History: Reports: None Gastrointestinal History: Reports: Other (See Below) Other Gastrointestinal History: Patient has primary idiopathic biliary c irrhosis. He is followed every 3-6 months by gastroenterology. Genitourinary History: Reports: None [employer] GUIDE History: Reports: Musculoskeletal History: Reports: Fracture Other Musculoskeletal History: left proximal humerus, right 3-5 fingers. Neurological History: Reports: None Psychiatric History: Reports: None Endocrine/Metabolic History: Reports: Hypothyroidism Hematologic History: Reports: None Other Hematologic History: low platlet counts Immunologic History: Reports: None Oncologic (Cancer) History: Reports: None Other Oncologic History: right cheek removed, currently has a spot on her back. Dermatologic History: Reports: None - Infectious Disease History Infectious Disease History: Reports: None - Past Surgical History Head Surgeries/Procedures: Reports: None Musculoskeletal Surgical History: Reports: Other (See Below) Other Musculoskeletal Surgeries/Procedures:: spine surgery Social & Family History - Family History Family Medical History: Noncontributory - Tobacco Use Tobacco Use Status *Q: Never Tobacco User - Caffeine Use Caffeine Use: Reports: Coffee Other Caffeine Use: 2-3 cups of coffee a day - Recreational Drug Use Recreational Drug Use: No - Living Situation & Occupation Living situation: Reports: Occupation: Retired Review of Systems - Review of Systems Review Of Systems: See Below Constitutional: Reports: No Symptoms. Denies: Chills, Fever Eyes: Reports: No Symptoms Ears: Reports: No Symptoms Nose: Reports: No Symptoms Mouth/Throat: Reports: No Symptoms Respiratory: Reports: No Symptoms Cardiovascular: Reports: No Symptoms GI/Abdominal: Reports: No Symptoms Genitourinary: Reports: No Symptoms Musculoskeletal: Reports: Joint Pain (Right hip pain) Skin: Reports: No Symptoms Neurological: Reports: No Symptoms. Denies: Dizziness, Headache Psychiatric: Reports: No Symptoms ED EXAM, GENERAL - Physical Exam Exam: See Below General Appearance: Alert, WD/WN, No Apparent Distress Eye Exam: Bilateral Eye: PERRL Head: Atraumatic, Normocephalic, Other (Abrasion to the bridge of the nose, likely caused by her glasses) Respiratory/Chest: No Respiratory Distress, Lungs Clear, Normal Breath Sounds, No Accessory Muscle Use, Chest Non-Tender Cardiovascular: Normal Peripheral Pulses, Regular Rate, Rhythm, No Edema, No Gallop, No JVD, No Murmur, No Rub GI/Abdominal: Normal Bowel Sounds, Soft, Non-Tender, No Organomegaly, No Distention, No Abnormal Bruit, No Mass Extremities: Other (Shortening with external rotation of the right lower extremity. Tenderness to palpation over the right hip.) Neurological: Alert, Oriented, CN II-XII Intact, Normal Cognition, Normal Gait, Normal Reflexes, No Motor/Sensory Deficits Psychiatric: Normal Affect Skin Exam: Warm, Dry, Intact, Normal Color, No Rash #1 Interpretation EKG Date: 03/26/20 Time: 18:27 Rhythm: NSR Rate (Beats/Min): 69 Avella: Normal P-Wave: Present QRS: Normal ST-T: Normal QT: Normal Course - Vital Signs Last Recorded V/S: Last Vital Signs Temp 98.1 F 03/27/20 13:56 Pulse 76 03/27/20 13:56 Resp 16 03/27/20 13:56 BP 90/41 L 03/27/20 13:56 Pulse Ox 94 L 03/27/20 13:56 - Orders/Labs/Meds Orders: Active Orders 24 hr Category Date Time Status Bedrest [RC] BID Care 03/26/20 20:33 Active Hwang Catheter Insertion [Insert Urinary Catheter] [OM. Care 03/26/20 20:00 Ordered PC] Q24H IS (RT) [RT Incentive Spirometry] [RC] Q1HWA Care 03/27/20 09:09 Active Notify Provider Consults [RC] ASDIRECTED Care 03/26/20 22:42 Active Peripheral IV Care [RC] Q2HR Care 03/26/20 18:18 Active Supplemental O2 [Oxygen Therapy] [RC] .PRN Care 03/27/20 02:54 Active Urinary Catheter Assessment [RC] 04,10,16,22 Care 03/26/20 19:47 Active Verify Patient Consent Obtain [RC] 0900 Care 03/26/20 20:45 Active Consult to Physician [CONS] Routine Cons 03/26/20 22:41 Active Heart Healthy Diet [DIET] Diet 03/27/20 Breakfast Active NPO After Midnight [Nothing per Oral After Midnight Diet 03/28/20 Breakfast Active Diet] [DIET] ABO/RH TYPE [BBK] Routine Lab 03/27/20 08:10 Results INR,PT,PROTHROMBIN TIME [COAG] Routine Lab 03/28/20 08:00 Ordered PATIENT RETYPE [BBK] Routine Lab 03/27/20 11:57 Ordered PLATELETS APH [BBK] Routine Lab 03/27/20 08:10 Results Acetaminophen/HYDROcodone [Bosque 325-5 MG] Med 03/26/20 20:33 Active 1 tab PO Q6H PRN Cyclobenzaprine [Flexeril] Med 03/27/20 14:53 Active 5 mg PO BID PRN Enoxaparin [Lovenox] Med 03/27/20 15:00 Active 40 mg SUBCUT Q24H HYDROmorphone [Dilaudid] Med 03/26/20 20:33 Active 0.5 mg IVPUSH Q4H PRN Lactated Ringers [Ringers, Lactated] 1,000 ml Med 03/27/20 10:45 Active IV ASDIRECTED Levothyroxine Med 03/28/20 06:00 Active 112 mcg PO ACBREAKFAST Pantoprazole [ProTONIX] Med 03/28/20 09:00 Active 40 mg PO DAILY Rifaximin [Xifaxan] Med 03/27/20 21:00 Active 550 mg PO BID Sertraline [Zoloft] Med 03/27/20 16:00 Active 25 mg PO DAILY Sodium Chloride 0.9% [Saline Flush] Med 03/26/20 18:17 Active 10 ml FLUSH ASDIRECTED PRN Spironolactone [Aldactone] Med 03/27/20 16:00 Active 12.5 mg PO DAILY nadoloL [Naldol] Med 03/28/20 09:00 Active 20 mg PO DAILY ursodioL [Actigal] Med 03/27/20 21:00 Active 300 mg PO BID Peripheral IV Insertion Adult [OM.PC] Stat Oth 03/26/20 18:17 Ordered Transfuse Platelets [COMM] Stat Oth 03/27/20 09:09 Ordered Resuscitation Status Routine Resus Stat 03/26/20 21:07 Ordered Medication Orders Hydrocodone Bitart/Acetaminophen (Bosque 325-5 Mg) 1 tab PO Q6H PRN PRN Reason: Pain Last Admin: 03/27/20 09:53 Dose: 1 tab Documented by: Admin: 03/26/20 21:45 Dose: 1 tab Documented by: MAURO Cyclobenzaprine HCl (Flexeril) 5 mg PO BID PRN PRN Reason: Muscle Spasm Enoxaparin Sodium (Lovenox) 40 mg SUBCUT Q24H CARLOS Last Admin: 03/27/20 14:18 Dose: Not Given Documented by: MCKENNA Hydromorphone HCl (Dilaudid) 0.5 mg IVPUSH Q4H PRN PRN Reason: Pain Last Admin: 03/26/20 22:54 Dose: 0.5 mg Documented by: MAURO Lactated Ringer's (Ringers, Lactated) 1,000 mls @ 50 mls/hr IV ASDIRECTED CARLOS Last Admin: 03/27/20 14:11 Dose: 50 mls/hr Documented by: MCKENNA Levothyroxine Sodium (Levothyroxine) 112 mcg PO ACBREAKFAST REPLACED BY [facility] Nadolol (Naldol) 20 mg PO DAILY REPLACED BY [facility] Pantoprazole Sodium (Protonix) 40 mg PO DAILY REPLACED BY [facility] Rifaximin (Xifaxan) 550 mg PO BID REPLACED BY [facility] Sertraline HCl (Zoloft) 25 mg PO DAILY REPLACED BY [facility] Sodium Chloride (Saline Flush) 10 ml FLUSH ASDIRECTED PRN PRN Reason: Keep Vein Open Last Admin: 03/26/20 18:19 Dose: 10 ml Documented by: DOUGIE Spironolactone (Aldactone) 12.5 mg PO DAILY REPLACED BY [facility] Ursodiol (Actigal) 300 mg PO BID REPLACED BY [facility] Labs: Laboratory Tests 03/26/20 03/26/20 03/26/20 Range/Units 18:17 18:34 18:34 WBC 5.87 (3.98-10.04) K/mm3 RBC 3.58 L (3.98-5.22) M/mm3 Hgb 11.8 (11.2-15.7) gm/dl Hct 35.0 (34.1-44.9) % MCV 97.8 H (79.4-94.8) fl MCH 33.0 H (25.6-32.2) pg MCHC 33.7 (32.2-35.5) g/dl RDW Std Deviation 60.8 H (36.4-46.3) fL Plt Count 68 L (182-369) K/mm3 MPV 10.6 (9.4-12.3) fl Neut % (Auto) 66.5 (34.0-71.1) % Lymph % (Auto) 19.9 (19.3-51.7) % Irion % (Auto) 9.0 (4.7-12.5) % Eos % (Auto) 3.6 (0.7-5.8) Baso % (Auto) 0.7 (0.1-1.2) % Neut # (Auto) 3.90 (1.56-6.13) K/mm3 Lymph # (Auto) 1.17 L (1.18-3.74) K/mm3 Irion # (Auto) 0.53 H (0.24-0.36) K/mm3 Eos # (Auto) 0.21 (0.04-0.36) K/mm3 Baso # (Auto) 0.04 (0.01-0.08) K/mm3 Manual Slide Review Abnormal smear PT (9.7-12.0) SECONDS INR APTT (21.7-31.4) SECONDS Sodium 138 (136-145) mEq/L Potassium 3.9 (3.5-5.1) mEq/L Chloride 104 (98-107) mEq/L Carbon Dioxide 25 (21-32) mEq/L Anion Gap 12.9 (5-15) BUN 11 (7-18) mg/dL Creatinine 0.7 (0.55-1.02) mg/dL Est Cr Clr Drug Dosing 71.13 mL/min Estimated GFR (MDRD) > 60 (>60) mL/min BUN/Creatinine Ratio 15.7 (14-18) Glucose 108 (83-115) mg/dL Calcium 8.9 (8.5-10.1) mg/dL Magnesium (1.8-2.4) mg/dl Total Bilirubin 2.9 H (0.2-1.0) mg/dL AST 69 H (15-37) U/L ALT 29 (14-59) U/L Alkaline Phosphatase 294 H (46-116) U/L C-Reactive Protein 2.1 H* (<1.0) mg/dL Total Protein 6.0 L (6.4-8.2) g/dl Albumin 2.6 L (3.4-5.0) g/dl Globulin 3.4 gm/dL Albumin/Globulin Ratio 0.8 L (1-2) SARS-CoV-2 RNA (NAHEED) Negative (NEGATIVE) MRSA (PCR) Blood Type 03/26/20 03/27/20 03/27/20 Range/Units 23:11 05:32 05:32 WBC 7.05 (3.98-10.04) K/mm3 RBC 3.49 L (3.98-5.22) M/mm3 Hgb 11.5 (11.2-15.7) gm/dl Hct 35.1 (34.1-44.9) % MCV 100.6 H (79.4-94.8) fl MCH 33.0 H (25.6-32.2) pg MCHC 32.8 (32.2-35.5) g/dl RDW Std Deviation 63.4 H (36.4-46.3) fL Plt Count 65 L (182-369) K/mm3 MPV 10.8 (9.4-12.3) fl Neut % (Auto) 64.3 (34.0-71.1) % Lymph % (Auto) 18.4 L (19.3-51.7) % Irion % (Auto) 15.0 H (4.7-12.5) % Eos % (Auto) 1.6 (0.7-5.8) Baso % (Auto) 0.6 (0.1-1.2) % Neut # (Auto) 4.53 (1.56-6.13) K/mm3 Lymph # (Auto) 1.30 (1.18-3.74) K/mm3 Irion # (Auto) 1.06 H (0.24-0.36) K/mm3 Eos # (Auto) 0.11 (0.04-0.36) K/mm3 Baso # (Auto) 0.04 (0.01-0.08) K/mm3 Manual Slide Review Abnormal smear PT (9.7-12.0) SECONDS INR APTT (21.7-31.4) SECONDS Sodium 138 (136-145) mEq/L Potassium 3.8 (3.5-5.1) mEq/L Chloride 106 (98-107) mEq/L Carbon Dioxide 27 (21-32) mEq/L Anion Gap 8.8 (5-15) BUN 13 (7-18) mg/dL Creatinine 0.6 (0.55-1.02) mg/dL Est Cr Clr Drug Dosing 82.98 mL/min Estimated GFR (MDRD) > 60 (>60) mL/min BUN/Creatinine Ratio 21.7 H (14-18) Glucose 100 (83-115) mg/dL Calcium 8.5 (8.5-10.1) mg/dL Magnesium 1.6 L (1.8-2.4) mg/dl Total Bilirubin (0.2-1.0) mg/dL AST (15-37) U/L ALT (14-59) U/L Alkaline Phosphatase (46-116) U/L C-Reactive Protein (<1.0) mg/dL Total Protein (6.4-8.2) g/dl Albumin (3.4-5.0) g/dl Globulin gm/dL Albumin/Globulin Ratio (1-2) SARS-CoV-2 RNA (NAHEED) (NEGATIVE) MRSA (PCR) Negative Blood Type 03/27/20 03/27/20 03/27/20 Range/Units 08:10 08:10 12:25 WBC (3.98-10.04) K/mm3 RBC (3.98-5.22) M/mm3 Hgb (11.2-15.7) gm/dl Hct (34.1-44.9) % MCV (79.4-94.8) fl MCH (25.6-32.2) pg MCHC (32.2-35.5) g/dl RDW Std Deviation (36.4-46.3) fL Plt Count 75 L (182-369) K/mm3 MPV (9.4-12.3) fl Neut % (Auto) (34.0-71.1) % Lymph % (Auto) (19.3-51.7) % Irion % (Auto) (4.7-12.5) % Eos % (Auto) (0.7-5.8) Baso % (Auto) (0.1-1.2) % Neut # (Auto) (1.56-6.13) K/mm3 Lymph # (Auto) (1.18-3.74) K/mm3 Irion # (Auto) (0.24-0.36) K/mm3 Eos # (Auto) (0.04-0.36) K/mm3 Baso # (Auto) (0.01-0.08) K/mm3 Manual Slide Review PT 12.8 H (9.7-12.0) SECONDS INR 1.20 APTT (21.7-31.4) SECONDS Sodium (136-145) mEq/L Potassium (3.5-5.1) mEq/L Chloride (98-107) mEq/L Carbon Dioxide (21-32) mEq/L Anion Gap (5-15) BUN (7-18) mg/dL Creatinine (0.55-1.02) mg/dL Est Cr Clr Drug Dosing mL/min Estimated GFR (MDRD) (>60) mL/min BUN/Creatinine Ratio (14-18) Glucose (83-115) mg/dL Calcium (8.5-10.1) mg/dL Magnesium (1.8-2.4) mg/dl Total Bilirubin (0.2-1.0) mg/dL AST (15-37) U/L ALT (14-59) U/L Alkaline Phosphatase (46-116) U/L C-Reactive Protein (<1.0) mg/dL Total Protein (6.4-8.2) g/dl Albumin (3.4-5.0) g/dl Globulin gm/dL Albumin/Globulin Ratio (1-2) SARS-CoV-2 RNA (NAHEED) (NEGATIVE) MRSA (PCR) Blood Type O NEGATIVE 03/27/20 Range/Units 12:25 WBC (3.98-10.04) K/mm3 RBC (3.98-5.22) M/mm3 Hgb (11.2-15.7) gm/dl Hct (34.1-44.9) % MCV (79.4-94.8) fl MCH (25.6-32.2) pg MCHC (32.2-35.5) g/dl RDW Std Deviation (36.4-46.3) fL Plt Count (182-369) K/mm3 MPV (9.4-12.3) fl Neut % (Auto) (34.0-71.1) % Lymph % (Auto) (19.3-51.7) % Irion % (Auto) (4.7-12.5) % Eos % (Auto) (0.7-5.8) Baso % (Auto) (0.1-1.2) % Neut # (Auto) (1.56-6.13) K/mm3 Lymph # (Auto) (1.18-3.74) K/mm3 Irion # (Auto) (0.24-0.36) K/mm3 Eos # (Auto) (0.04-0.36) K/mm3 Baso # (Auto) (0.01-0.08) K/mm3 Manual Slide Review PT (9.7-12.0) SECONDS INR APTT 27.7 (21.7-31.4) SECONDS Sodium (136-145) mEq/L Potassium (3.5-5.1) mEq/L Chloride (98-107) mEq/L Carbon Dioxide (21-32) mEq/L Anion Gap (5-15) BUN (7-18) mg/dL Creatinine (0.55-1.02) mg/dL Est Cr Clr Drug Dosing mL/min Estimated GFR (MDRD) (>60) mL/min BUN/Creatinine Ratio (14-18) Glucose (83-115) mg/dL Calcium (8.5-10.1) mg/dL Magnesium (1.8-2.4) mg/dl Total Bilirubin (0.2-1.0) mg/dL AST (15-37) U/L ALT (14-59) U/L Alkaline Phosphatase (46-116) U/L C-Reactive Protein (<1.0) mg/dL Total Protein (6.4-8.2) g/dl Albumin (3.4-5.0) g/dl Globulin gm/dL Albumin/Globulin Ratio (1-2) SARS-CoV-2 RNA (NAHEED) (NEGATIVE) MRSA (PCR) Blood Type Meds: Medications Generic Name Dose Route Start Last Admin Trade Name Freq PRN Reason Stop Dose Admin Hydrocodone Bitart/Acetaminophen 1 tab 03/26/20 20:33 03/27/20 09:53 Bosque 325-5 Mg PO 1 tab Q6H PRN Administration Pain Cyclobenzaprine HCl 5 mg 03/27/20 14:53 Flexeril PO BID PRN Muscle Spasm Enoxaparin Sodium 40 mg 03/27/20 15:00 03/27/20 14:18 Lovenox SUBCUT Not Given Q24H CARLOS Hydromorphone HCl 0.5 mg 03/26/20 20:33 03/26/20 22:54 Dilaudid IVPUSH 0.5 mg Q4H PRN Administration Pain Lactated Ringer's 1,000 mls @ 50 mls/hr 03/27/20 10:45 03/27/20 14:11 Ringers, Lactated IV 50 mls/hr ASDIRECTED CARLOS Administration Levothyroxine Sodium 112 mcg 03/28/20 06:00 Levothyroxine PO ACBREAKFAST CARLOS Nadolol 20 mg 03/28/20 09:00 Naldol PO DAILY CARLOS Pantoprazole Sodium 40 mg 03/28/20 09:00 Protonix PO DAILY CARLOS Rifaximin 550 mg 03/27/20 21:00 Xifaxan PO BID CARLOS Sertraline HCl 25 mg 03/27/20 16:00 Zoloft PO DAILY CARLOS Sodium Chloride 10 ml 03/26/20 18:17 03/26/20 18:19 Saline Flush FLUSH 10 ml ASDIRECTED PRN Administration Keep Vein Open Spironolactone 12.5 mg 03/27/20 16:00 Aldactone PO DAILY CARLOS Ursodiol 300 mg 03/27/20 21:00 Actigal PO BID CARLOS Discontinued Medications Generic Name Dose Route Start Last Admin Trade Name Freq PRN Reason Stop Dose Admin Hydromorphone HCl 0.5 mg 03/26/20 18:09 03/26/20 18:15 Dilaudid IVPUSH 03/26/20 18:10 0.5 mg ONETIME ONE Administration Magnesium Sulfate 2 gm in 50 mls @ 25 mls/hr 03/27/20 10:25 03/27/20 10:33 Magnesium Sulfate In Water Premix IV 11/05/20 12:24 25 mls/hr ONETIME ONE Administration Ondansetron HCl 4 mg 03/26/20 18:10 03/26/20 18:15 Zofran IVPUSH 03/26/20 18:11 4 mg ONETIME ONE Administration - Re-Assessments/Exams Free Text/Narrative Re-Assessment/Exam: Patient is a 74-year-old female presenting to the emergency department with complaints of right hip pain. On exam there is obvious shortening with external rotation of the right lower extremity. She had also fallen and hit her head, however she did not lose consciousness. Her neurologic exam is normal. Nonetheless, we will CT her head to ensure that there is no intracranial abnormalities. Have also ordered an x-ray of her right hip and pelvis. Reported CBC, CMP, CRP, chest x-ray, and EKG for preop work-up. Also ordered a 1 hour Covid test. We will give her Dilaudid 0.5 mg and Zofran 4 mg IV for pain prior to x-rays being completed. Nursing staff is working to see if we can find a bed for her with our facility as we are quite full. 03/26/20 19:48 X-ray of the right hip shows a displaced intertrochanteric fracture. There is no obvious intracranial hemorrhage visible, however official radiologist read is pending.Hematology was significant for total bili elevated at 2.9 and AST of 69, alkaline phosphatase 294, CRP 2.1. Patient does have a history of elevated bilirubin and this is in the normal range for her. She is Covid negative. Called and spoke with Dr. hCilds, the orthopedist on-call. He is in agreement to take the patient to surgery for repair tomorrow. Spoke to hospitalist, Dr. Taylor. We are able to admit the patient into observation status until she goes to surgery tomorrow. Patient updated on this and is in agreement. I have ordered Hwang catheter insertion as patient has quite a bit of pain with movement. This will minimize the need for turning for the bedpan. Departure - Departure Time of Disposition: 19:50 Disposition: Refer to Observation Condition: Good Clinical Impression: Abnormal LFTs (liver function tests) Hip fracture, intertrochanteric Qualifiers: Encounter type: initial encounter Fracture type: closed Fracture alignment: displaced Laterality: right Qualified Code(s): S72.141A - Displaced intertrochanteric fracture of right femur, initial encounter for closed fracture - Discharge Information Sepsis Event Note (ED) - Evaluation Sepsis Screening Result: No Definite Risk - Focused Exam Vital Signs: Vital Signs Temp Pulse Resp BP Pulse Ox 03/27/20 13:56 98.1 F 76 16 90/41 L 94 L 03/27/20 08:29 98.4 F 75 18 117/63 96 03/27/20 04:58 97.9 F 71 16 99/73 95 - My Orders Last 24 Hours: My Active Orders 03/26/20 18:17 Sodium Chloride 0.9% [Saline Flush] 10 ml FLUSH ASDIRECTED PRN Peripheral IV Insertion Adult [OM.PC] Stat 03/26/20 18:18 Peripheral IV Care [RC] Q2HR 03/26/20 19:47 Urinary Catheter Assessment [RC] 04,,,03/26/20 20:00 Hwang Catheter Insertion [Insert Urinary Catheter] [OM.PC] Q24H - Assessment/Plan Last 24 Hours: My Active Orders 03/26/20 18:17 Sodium Chloride 0.9% [Saline Flush] 10 ml FLUSH ASDIRECTED PRN Peripheral IV Insertion Adult [OM.PC] Stat 03/26/20 18:18 Peripheral IV Care [RC] Q2HR 03/26/20 19:47 Urinary Catheter Assessment [RC] 04,,16,03/26/20 20:00 Hwang Catheter Insertion [Insert Urinary Catheter] [OM.PC] Q24H
[2020-03-26] MEDS ORDERED: HYDROmorphone 0.5 MG/0.5 ML Syringe IVPUSH PRN (20:33)
[2020-03-26] MEDS: Acetaminophen/HYDROcodone 325-5 MG Tab PO PRN (21:45)
--- NOTE | 2020-03-27 08:46 | PCM.HP.2 ---
H&P History of Present Illness - General Date of Service: 03/27/20 Admit Problem/Dx: Admission Diagnosis/Problem Admission Diagnosis/Problem Hip fracture, intertrochanteric Source of Information: Provider, RN History Limitations: Reports: Other (pt reports that she has memory issues) - History of Present Illness Onset of Symptoms: Reports: Sudden Location: Reports: Lower Extremity, Right Quality: Reports: Ache Severity: Moderate Improves with: Reports: Immobilization Worsens with: Reports: Movement Context: Reports: Trauma ([facility] fall at [facility]) Associated Symptoms: Reports: No Other Symptoms Right Hip Pain Score (Numeric/FACES): 6 - Related Data Allergies/Adverse Reactions: Allergies Allergy/AdvReac Type Severity Reaction Status Date / Time milk Allergy Other Verified 03/26/20 22:38 Home Medications: Home Meds Levothyroxine 112 mcg PO DAILY 03/21/19 [History] Omeprazole 40 mg PO DAILY 03/21/19 [History] Rifaximin [Xifaxan] 550 mg PO BID 03/21/19 [History] Sertraline [Zoloft] 25 mg PO DAILY 03/21/19 [History] Spironolactone [Aldactone] 12.5 mg PO DAILY 03/21/19 [History] nadoloL [Corgard] 20 mg PO DAILY 03/21/19 [History] ursodioL [Ursodiol] 300 mg PO BID 03/21/19 [History] Ibuprofen 200 mg PO TID PRN 30 Days tablet 03/27/19 [Rx] Cyclobenzaprine [Flexeril] 5 mg PO BID PRN 07/27/19 [History] Lactulose [Cephulac] 20 gm PO DAILY 07/27/19 [History] Acetaminophen 650 mg PO Q4H PRN 03/26/20 [History] Benzonatate 100 mg PO TID PRN 03/26/20 [History] Calcium Carbonate/Vitamin D3 [Calcium 500-Vit D3 200 Caplet] 2 tab PO DAILY 03/26/20 [History] Cholecalciferol (Vitamin D3) [Vitamin D3] 5,000 unit PO DAILY 03/26/20 [History] Fexofenadine HCl [Mirian Allergy] 60 mg PO DAILY 03/26/20 [History] Simethicone 125 mg PO QIDPCANDBED 03/26/20 [History] Past Medical History HEENT History: Reports: Impaired Vision Other HEENT History: wears glasses, has hearing aides but hasn't used Cardiovascular History: Reports: High Cholesterol, Hypertension Respiratory History: Reports: None Gastrointestinal History: Reports: Other (See Below) Other Gastrointestinal History: Patient has primary idiopathic biliary cirrhosis. He is followed every 3-6 months by gastroenterology. 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 Neurological History: Reports: None Psychiatric History: Reports: None Endocrine/Metabolic History: Reports: Hypothyroidism Hematologic History: Reports: None Other Hematologic History: low platlet counts Immunologic History: Reports: None Oncologic (Cancer) History: Reports: None Other Oncologic History: right cheek removed, currently has a spot on her back. Dermatologic History: Reports: None - Infectious Disease History Infectious Disease History: Reports: None - Past Surgical History Head Surgeries/Procedures: Reports: None Musculoskeletal Surgical History: Reports: Other (See Below) Other Musculoskeletal Surgeries/Procedures:: spine surgery Social & Family History - Family History Family Medical History: Noncontributory - Tobacco Use Tobacco Use Status *Q: Never Tobacco User - Caffeine Use Caffeine Use: Reports: Coffee Other Caffeine Use: 2-3 cups of coffee a day - Recreational Drug Use Recreational Drug Use: No - Living Situation & Occupation Living situation: Reports: Occupation: Retired H&P Review of Systems - Review of Systems: Review Of Systems: See Below General: Reports: No Symptoms HEENT: Reports: No Symptoms Pulmonary: Reports: No Symptoms Cardiovascular: Reports: No Symptoms. Denies: Chest Pain, Palpitations, Edema Gastrointestinal: Reports: No Symptoms Genitourinary: Reports: Other (correa catheter in place) Musculoskeletal: Reports: No Symptoms Skin: Reports: No Symptoms Psychiatric: Reports: Confusion Neurological: Reports: Confusion Hematologic/Lymphatic: Reports: Other (thrombocytopenia) Immunologic: Reports: No Symptoms Exam - Exam Exam: See Below - Vital Signs Vital Signs: Last Vital Signs Temp 97.9 F 03/27/20 04:58 Pulse 71 03/27/20 04:58 Resp 16 03/27/20 04:58 BP 99/73 03/27/20 04:58 Pulse Ox 95 03/27/20 04:58 Weight: 159 lb 11.2 oz - Exam Quality Assessment: Urinary Catheter, DVT Prophylaxis (lovenox). No: Supplemental Oxygen General: Alert, Oriented, Cooperative, Mild Distress HEENT: Conjunctiva Clear, EACs Clear, Mucosa Moist & Vand[place], Pupils Equal, Pupils Reactive. No: Hearing Intact (hard of hearing) Neck: Supple, Trachea Midline. No: Lymphadenopathy Lungs: Clear to Auscultation, Normal Respiratory Effort Cardiovascular: Regular Rate, Regular Rhythm, Normal S1, Normal S2 GI/Abdominal Exam: Normal Bowel Sounds, Soft, Non-Tender (Female) Exam: Deferred Rectal (Female) Exam: Deferred Back Exam: Normal Inspection, Full Range of Motion Extremities: Normal Inspection, Normal Range of Motion, Non-Tender, No Pedal Edema, Normal Capillary Refill, Other (right hip pain due to fracture) Peripheral Pulses: 2+: Radial (L), Radial (R), Dorsalis Pedis (L), Dorsalis Pedi s (R) Skin: Warm, Dry, Intact Neuro Extensive - Mental Status: Alert, Oriented x3, Normal Mood/Affect, Normal Cognition, Memory Loss-Recent Events. No: Memory Intact (reports having memory issues) Psychiatric: Alert, Normal Affect, Normal Mood - Patient Data Lab Results Last 24 hrs: Laboratory Results - last 24 hr 03/26/20 03/26/20 03/26/20 Range/Units 18:17 18:34 18:34 WBC 5.87 (3.98-10.04) K/mm3 RBC 3.58 L (3.98-5.22) M/mm3 Hgb 11.8 (11.2-15.7) gm/dl Hct 35.0 (34.1-44.9) % MCV 97.8 H (79.4-94.8) fl MCH 33.0 H (25.6-32.2) pg MCHC 33.7 (32.2-35.5) g/dl RDW Std Deviation 60.8 H (36.4-46.3) fL Plt Count 68 L (182-369) K/mm3 MPV 10.6 (9.4-12.3) fl Neut % (Auto) 66.5 (34.0-71.1) % Lymph % (Auto) 19.9 (19.3-51.7) % [place] % (Auto) 9.0 (4.7-12.5) % Eos % (Auto) 3.6 (0.7-5.8) Baso % (Auto) 0.7 (0.1-1.2) % Neut # (Auto) 3.90 (1.56-6.13) K/mm3 Lymph # (Auto) 1.17 L (1.18-3.74) K/mm3 [place] # (Auto) 0.53 H (0.24-0.36) K/mm3 Eos # (Auto) 0.21 (0.04-0.36) K/mm3 Baso # (Auto) 0.04 (0.01-0.08) K/mm3 Manual Slide Review Abnormal smear Sodium 138 (136-145) mEq/L Potassium 3.9 (3.5-5.1) mEq/L Chloride 104 (98-107) mEq/L Carbon Dioxide 25 (21-32) mEq/L Anion Gap 12.9 (5-15) BUN 11 (7-18) mg/dL Creatinine 0.7 (0.55-1.02) mg/dL Est Cr Clr Drug Dosing 71.13 mL/min Estimated GFR (MDRD) > 60 (>60) mL/min BUN/Creatinine Ratio 15.7 (14-18) Glucose 108 (83-115) mg/dL Calcium 8.9 (8.5-10.1) mg/dL Magnesium (1.8-2.4) mg/dl Total Bilirubin 2.9 H (0.2-1.0) mg/dL AST 69 H (15-37) U/L ALT 29 (14-59) U/L Alkaline Phosphatase 294 H (46-116) U/L C-Reactive Protein 2.1 H* (<1.0) mg/dL Total Protein 6.0 L (6.4-8.2) g/dl Albumin 2.6 L (3.4-5.0) g/dl Globulin 3.4 gm/dL Albumin/Globulin Ratio 0.8 L (1-2) SARS-CoV-2 RNA (NAHEED) Negative (NEGATIVE) MRSA (PCR) 03/26/20 03/27/20 03/27/20 Range/Units 23:11 05:32 05:32 WBC 7.05 (3.98-10.04) K/mm3 RBC 3.49 L (3.98-5.22) M/mm3 Hgb 11.5 (11.2-15.7) gm/dl Hct 35.1 (34.1-44.9) % MCV 100.6 H (79.4-94.8) fl MCH 33.0 H (25.6-32.2) pg MCHC 32.8 (32.2-35.5) g/dl RDW Std Deviation 63.4 H (36.4-46.3) fL Plt Count 65 L (182-369) K/mm3 MPV 10.8 (9.4-12.3) fl Neut % (Auto) 64.3 (34.0-71.1) % Lymph % (Auto) 18.4 L (19.3-51.7) % [place] % (Auto) 15.0 H (4.7-12.5) % Eos % (Auto) 1.6 (0.7-5.8) Baso % (Auto) 0.6 (0.1-1.2) % Neut # (Auto) 4.53 (1.56-6.13) K/mm3 Lymph # (Auto) 1.30 (1.18-3.74) K/mm3 [place] # (Auto) 1.06 H (0.24-0.36) K/mm3 Eos # (Auto) 0.11 (0.04-0.36) K/mm3 Baso # (Auto) 0.04 (0.01-0.08) K/mm3 Manual Slide Review Abnormal smear Sodium 138 (136-145) mEq/L Potassium 3.8 (3.5-5.1) mEq/L Chloride 106 (98-107) mEq/L Carbon Dioxide 27 (21-32) mEq/L Anion Gap 8.8 (5-15) BUN 13 (7-18) mg/dL Creatinine 0.6 (0.55-1.02) mg/dL Est Cr Clr Drug Dosing 82.98 mL/min Estimated GFR (MDRD) > 60 (>60) mL/min BUN/Creatinine Ratio 21.7 H (14-18) Glucose 100 (83-115) mg/dL Calcium 8.5 (8.5-10.1) mg/dL Magnesium 1.6 L (1.8-2.4) mg/dl Total Bilirubin (0.2-1.0) mg/dL AST (15-37) U/L ALT (14-59) U/L Alkaline Phosphatase (46-116) U/L C-Reactive Protein (<1.0) mg/dL Total Protein (6.4-8.2) g/dl Albumin (3.4-5.0) g/dl Globulin gm/dL Albumin/Globulin Ratio (1-2) SARS-CoV-2 RNA (NAHEED) (NEGATIVE) MRSA (PCR) Negative 03/27/20 Range/Units 08:10 WBC (3.98-10.04) K/mm3 RBC (3.98-5.22) M/mm3 Hgb (11.2-15.7) gm/dl Hct (34.1-44.9) % MCV (79.4-94.8) fl MCH (25.6-32.2) pg MCHC (32.2-35.5) g/dl RDW Std Deviation (36.4-46.3) fL Plt Count 75 L (182-369) K/mm3 MPV (9.4-12.3) fl Neut % (Auto) (34.0-71.1) % Lymph % (Auto) (19.3-51.7) % [place] % (Auto) (4.7-12.5) % Eos % (Auto) (0.7-5.8) Baso % (Auto) (0.1-1.2) % Neut # (Auto) (1.56-6.13) K/mm3 Lymph # (Auto) (1.18-3.74) K/mm3 [place] # (Auto) (0.24-0.36) K/mm3 Eos # (Auto) (0.04-0.36) K/mm3 Baso # (Auto) (0.01-0.08) K/mm3 Manual Slide Review Sodium (136-145) mEq/L Potassium (3.5-5.1) mEq/L Chloride (98-107) mEq/L Carbon Dioxide (21-32) mEq/L Anion Gap (5-15) BUN (7-18) mg/dL Creatinine (0.55-1.02) mg/dL Est Cr Clr Drug Dosing mL/min Estimated GFR (MDRD) (>60) mL/min BUN/Creatinine Ratio (14-18) Glucose (83-115) mg/dL Calcium (8.5-10.1) mg/dL Magnesium (1.8-2.4) mg/dl Total Bilirubin (0.2-1.0) mg/dL AST (15-37) U/L ALT (14-59) U/L Alkaline Phosphatase (46-116) U/L C-Reactive Protein (<1.0) mg/dL Total Protein (6.4-8.2) g/dl Albumin (3.4-5.0) g/dl Globulin gm/dL Albumin/Globulin Ratio (1-2) SARS-CoV-2 RNA (NAHEED) (NEGATIVE) MRSA (PCR) Result Diagrams: 03/27/20 08:10 03/27/20 05:32 Sepsis Event Note - Evaluation Sepsis Screening Result: No Definite Risk - Focused Exam Vital Signs: Vital Signs Temp Pulse Resp BP Pulse Ox 03/27/20 04:58 97.9 F 71 16 99/73 95 03/26/20 23:16 97.9 F 80 18 90/56 L 94 L 03/26/20 20:58 97.9 F 78 16 148/79 H 94 L - Problem List (1) Abnormal LFTs (liver function tests) SNOMED Code(s): 291703091 ICD Code: R94.5 - ABNORMAL RESULTS OF LIVER FUNCTION STUDIES Status: Acute Priority: High Current Visit: Yes (2) Hip fracture, intertrochanteric SNOMED Code(s): 545726593 ICD Code: S72.143A - DISPLACED INTERTROCHANTERIC FRACTURE OF UNSP FEMUR, INIT Status: Acute Priority: High Current Visit: Yes Qualifiers: Encounter type: initial encounter Fracture type: closed Fracture alignment: displaced Laterality: right Qualified Code(s): S72.141A - Displaced intertrochanteric fracture of right femur, initial encounter for closed fracture (3) Fall SNOMED Code(s): 9030900, 678663573 ICD Code: W19.XXXA - UNSPECIFIED FALL, INITIAL ENCOUNTER Status: Acute Priority: High Current Visit: Yes Qualifiers: Encounter type: initial encounter Qualified Code(s): W19.XXXA - Unspecified fall, initial encounter (4) Hypertension SNOMED Code(s): 22895406 ICD Code: I10 - ESSENTIAL (PRIMARY) HYPERTENSION Status: Chronic Priority: High Current Visit: Yes Qualifiers: Hypertension type: unspecified Qualified Code(s): I10 - Essential (primary) hypertension Problem List Initiated/Reviewed/Updated: Yes Orders Last 24hrs: Active Orders 24 hr Category Date Time Status Patient Status [ADT] Routine ADT 03/26/20 20:09 Active Bedrest [RC] BID Care 03/26/20 20:33 Active Correa Catheter Insertion [Insert Urinary Catheter] [OM. Care 03/26/20 20:00 Ordered PC] Q24H Notify Provider Consults [RC] ASDIRECTED Care 03/26/20 22:42 Active Peripheral IV Care [RC] Q2HR Care 03/26/20 18:18 Active Supplemental O2 [Oxygen Therapy] [RC] .PRN Care 03/27/20 02:54 Active Urinary Catheter Assessment [RC] 04,10,16,22 Care 03/26/20 19:47 Active Verify Patient Consent Obtain [RC] 0900 Care 03/26/20 20:45 Active Consult to Physician [CONS] Routine Cons 03/26/20 22:41 Active Nothing per Oral After Midnight Diet [DIET] Diet 03/27/20 Breakfast Active Chest 1V Frontal [CR] Stat Exams 03/26/20 18:17 Taken Head wo Cont [CT] Stat Exams 03/26/20 18:16 Taken Hip Min 2V or 3V w Pelvis Rt [CR] Stat Exams 03/26/20 18:17 Taken Acetaminophen/HYDROcodone [[place] 325-5 MG] Med 03/26/20 20:33 Active 1 tab PO Q6H PRN Enoxaparin [Lovenox] Med 03/27/20 15:00 Active 40 mg SUBCUT Q24H HYDROmorphone [Dilaudid] Med 03/26/20 20:33 Active 0.5 mg IVPUSH Q4H PRN Sodium Chloride 0.9% [Saline Flush] Med 03/26/20 18:17 Active 10 ml FLUSH ASDIRECTED PRN Peripheral IV Insertion Adult [OM.PC] Stat Oth 03/26/20 18:17 Ordered Resuscitation Status Routine Resus Stat 03/26/20 21:07 Ordered Medication Orders Hydrocodone Bitart/Acetaminophen ([place] 325-5 Mg) 1 tab PO Q6H PRN PRN Reason: Pain Last Admin: 03/26/20 21:45 Dose: 1 tab Documented by: MAURO Enoxaparin Sodium (Lovenox) 40 mg SUBCUT Q24H CARLOS Hydromorphone HCl (Dilaudid) 0.5 mg IVPUSH Q4H PRN PRN Reason: Pain Last Admin: 03/26/20 22:54 Dose: 0.5 mg Documented by: MAURO Sodium Chloride (Saline Flush) 10 ml FLUSH ASDIRECTED PRN PRN Reason: Keep Vein Open Last Admin: 03/26/20 18:19 Dose: 10 ml Documented by: DOUGIE Assessment/Plan Comment:: * 74-year-old female with a history of [facility] * X-ray of the right hip shows a displaced intertrochanteric fracture. * Labs in the emergency department reveal bilirubin 2.9, AST 69, alk phos 294, CRP 2.1, platelet count of 68. Patient does have a history of elevated bilirubin and this is in the normal range for her. Patient also has a history of chronic thrombocytopenia. * Vital signs in the emergency department: Temp 97.4, pulse 77, respiratory rate 18, blood pressure 138/65, pulse ox 90% on room air. * Repeat platelet count this mornin PLAN: * Patient will be admitted to the [facility] floor observation status. * Dr. Childs will consult on the patient and evaluate for surgery. * SHERINE Wallace notified of patient's most recent platelet count. She is requesting that the patient be rescheduled for surgery tomorrow and that the patient received platelets today. * Lovenox for DVT prophylaxis * Monitor vital signs and intake and output. * Patient is n.p.o. at this time. * Will repeat labs in the a.m. * Incentive spirometer * PT/OT will evaluate and treat after surgery. - Mortality Measure Prognosis:: Good
--- NOTE | 2020-03-27 08:57 | CR ---
PROCEDURE INFORMATION: Exam: XR Right Hip with Pelvis when Performed Exam date and time: 03/26/2020 7:24 PM Age: 74 years old Clinical indication: Injury or trauma; Fall TECHNIQUE: Imaging protocol: XR Right hip with pelvis when performed. Views: 2 or 3 views. COMPARISON: No relevant prior studies available. FINDINGS: Bones/joints: Acute comminuted displaced right intertrochanteric femoral fracture. Marked varus angulation distal fracture fragment. A medially displaced fracture fragment is displaced approximately 1.5 cm. IMPRESSION: Acute comminuted displaced right intertrochanteric femoral fracture. Thank you for allowing us to participate in the care of your patient. Dictated and Authenticated by: Iain Jeronimo MD 03/26/2020 10:29 PM Central Time ([place] & [place]) JEANIE
--- NOTE | 2020-03-27 08:58 | CR ---
PROCEDURE INFORMATION: Exam: XR Chest, 1 View Exam date and time: 03/26/2020 7:33 PM Age: 74 years old Clinical indication: Pain TECHNIQUE: Imaging protocol: XR of the chest Views: 1 view. COMPARISON: CR Chest 1V Frontal 07/27/2019 11:37 AM FINDINGS: Lungs: Unremarkable. No consolidation. Pleural space: Unremarkable. No pleural effusion. No pneumothorax. Heart/Mediastinum: Mild cardiomegaly. Bones/joints: Old deformity left humeral neck. Vertebroplasty T12. IMPRESSION: No acute cardiopulmonary disease. Thank you for allowing us to participate in the care of your patient. Dictated and Authenticated by: Iain Jeronimo MD 03/26/2020 10:27 PM Central Time ([place] & [place]) JEANIE
--- NOTE | 2020-03-27 09:00 | CT ---
PROCEDURE INFORMATION: Exam: CT Head Without Contrast Exam date and time: 03/26/2020 7:08 PM Age: 74 years old Clinical indication: Pain; Fall TECHNIQUE: Imaging protocol: Computed tomography of the head without contrast. COMPARISON: CT Head wo Cont 07/27/2019 11:54 AM FINDINGS: Brain: Age-related involutional changes and chronic microvascular ischemic disease. No evidence for acute transcortical infarct. No mass effect or midline shift. No extra-axial collection. No acute intracranial hemorrhage. Basal cisterns are patent. Cerebral ventricles: No ventriculomegaly. Bones/joints: Unremarkable. No acute fracture. Paranasal sinuses: Visualized sinuses are unremarkable. No fluid levels. Mastoid air cells: Visualized mastoid air cells are well aerated. Soft tissues: Unremarkable. IMPRESSION: No evidence for acute transcortical infarct, acute intracranial hemorrhage, or mass effect. Thank you for allowing us to participate in the care of your patient. Dictated and Authenticated by: Luis Enrique Gray MD 03/26/2020 9:02 PM Central Time ([place] & [place]) [facility]
[2020-03-27] MEDS: Acetaminophen/HYDROcodone 325-5 MG Tab PO PRN ×2 (09:53→18:08)
[2020-03-27] MEDS ORDERED: Magnesium Sulfate/Water 2 GM/50 ML BAG IV ONE (10:25)
--- NOTE | 2020-03-27 13:29 | PCM.PREANE ---
Preanesthetic Assessment - Procedure Proposed Procedure: Right Femur IM Nailing - Anesthesia/Transfusion/Family Hx Anesthesia History: Prior Anesthesia Without Reaction Family History of Anesthesia Reaction: No Transfusion History: Unknown (Daughter and patient are uncertain if she has had transfusions in the past.) - Review of Systems General: No Symptoms Pulmonary: Cough (Chronic, dry. ) Cardiovascular: No Symptoms Gastrointestinal: No Symptoms Neurological: No Symptoms, Confusion (Memory loss), Pre-Existing Deficit (Hepatic encephalopathy) Other: Reports: Liver Problems (Biliary cirrhosis, thrombocytopenia), Thyroid Problems - Physical Assessment NPO Status Date: 03/27/20 NPO Status Time: 23:59 Vital Signs: Last Vital Signs Temp 36.9 C 03/27/20 08:29 Pulse 75 03/27/20 08:29 Resp 18 03/27/20 08:29 BP 117/63 03/27/20 08:29 Pulse Ox 96 03/27/20 08:29 Height: 1.73 m Weight: 72.439 kg ASA Class: 3 Mental Status: Alert & Oriented x3 Airway Class: Mallampati = 2 Dentition: Reports: Normal Dentition, [place](s) Thyro-Mental Finger Breadths: 2 Mouth Opening Finger Breadths: 3 ROM/Head Extension: Full Lungs: Clear to Auscultation, Normal Respiratory Effort Cardiovascular: Regular Rate, Regular Rhythm - Lab Values: Laboratory Last Values WBC 7.05 K/mm3 (3.98-10.04) 03/27/20 05:32 RBC 3.49 M/mm3 (3.98-5.22) L 03/27/20 05:32 Hgb 11.5 gm/dl (11.2-15.7) 03/27/20 05:32 Hct 35.1 % (34.1-44.9) 03/27/20 05:32 MCV 100.6 fl (79.4-94.8) H 03/27/20 05:32 MCH 33.0 pg (25.6-32.2) H 03/27/20 05:32 MCHC 32.8 g/dl (32.2-35.5) 03/27/20 05:32 RDW Std Deviation 63.4 fL (36.4-46.3) H 03/27/20 05:32 Plt Count 75 K/mm3 (182-369) L 03/27/20 08:10 MPV 10.8 fl (9.4-12.3) 03/27/20 05:32 Neut % (Auto) 64.3 % (34.0-71.1) 03/27/20 05:32 Lymph % (Auto) 18.4 % (19.3-51.7) L 03/27/20 05:32 [place] % (Auto) 15.0 % (4.7-12.5) H 03/27/20 05:32 Eos % (Auto) 1.6 (0.7-5.8) 03/27/20 05:32 Baso % (Auto) 0.6 % (0.1-1.2) 03/27/20 05:32 Neut # (Auto) 4.53 K/mm3 (1.56-6.13) 03/27/20 05:32 Lymph # (Auto) 1.30 K/mm3 (1.18-3.74) 03/27/20 05:32 [place] # (Auto) 1.06 K/mm3 (0.24-0.36) H 03/27/20 05:32 Eos # (Auto) 0.11 K/mm3 (0.04-0.36) 03/27/20 05:32 Baso # (Auto) 0.04 K/mm3 (0.01-0.08) 03/27/20 05:32 Manual Slide Review Abnormal smear 03/27/20 05:32 PT 12.8 SECONDS (9.7-12.0) H 03/27/20 12:25 INR 1.20 03/27/20 12:25 APTT 27.7 SECONDS (21.7-31.4) 03/27/20 12:25 Sodium 138 mEq/L (136-145) 03/27/20 05:32 Potassium 3.8 mEq/L (3.5-5.1) 03/27/20 05:32 Chloride 106 mEq/L (98-107) 03/27/20 05:32 Carbon Dioxide 27 mEq/L (21-32) 03/27/20 05:32 Anion Gap 8.8 (5-15) 03/27/20 05:32 BUN 13 mg/dL (7-18) 03/27/20 05:32 Creatinine 0.6 mg/dL (0.55-1.02) 03/27/20 05:32 Est Cr Clr Drug Dosing 82.98 mL/min 03/27/20 05:32 Estimated GFR (MDRD) > 60 mL/min (>60) 03/27/20 05:32 BUN/Creatinine Ratio 21.7 (14-18) H 03/27/20 05:32 Glucose 100 mg/dL (83-115) 03/27/20 05:32 Calcium 8.5 mg/dL (8.5-10.1) 03/27/20 05:32 Magnesium 1.6 mg/dl (1.8-2.4) L 03/27/20 05:32 Total Bilirubin 2.9 mg/dL (0.2-1.0) H 03/26/20 18:34 AST 69 U/L (15-37) H 03/26/20 18:34 ALT 29 U/L (14-59) 03/26/20 18:34 Alkaline Phosphatase 294 U/L (46-116) H 03/26/20 18:34 C-Reactive Protein 2.1 mg/dL (<1.0) H* 03/26/20 18:34 Total Protein 6.0 g/dl (6.4-8.2) L 03/26/20 18:34 Albumin 2.6 g/dl (3.4-5.0) L 03/26/20 18:34 Globulin 3.4 gm/dL 03/26/20 18:34 Albumin/Globulin Ratio 0.8 (1-2) L 03/26/20 18:34 SARS-CoV-2 RNA (NAHEED) Negative (NEGATIVE) 03/26/20 18:17 MRSA (PCR) Negative 03/26/20 23:11 Blood Type O NEGATIVE 03/27/20 08:10 - Allergies Allergies/Adverse Reactions: Allergies Allergy/AdvReac Type Severity Reaction Status Date / Time milk Allergy Other Verified 03/26/20 22:38 - Acknowledgements Anesthesia Type Planned: General Anesthesia Pt an Appropriate Candidate for the Planned Anesthesia: Yes Alternatives and Risks of Anesthesia Discussed w Pt/Guardian: Yes Pt/Guardian Understands and Agrees with Anesthesia Plan: Yes PreAnesthesia Questionnaire HEENT History: Reports: Impaired Vision Other HEENT History: wears glasses, has hearing aides but hasn't used Cardiovascular History: Reports: High Cholesterol, Hypertension Respiratory History: Reports: None Gastrointestinal History: Reports: Other (See Below) Other Gastrointestinal History: Patient has primary idiopathic biliary cirrhosis. He is followed every 3-6 months by gastroenterology. Genitourinary History: Reports: None Other Genitourinary History: urgency NURSE GENERAL DUTY History: Reports: Other OB/BYN History: breast infections in 1966 Musculoskeletal History: Reports: Fracture Other Musculoskeletal History: left proximal humerus, right 3-5 fingers. Neurological History: Reports: None Psychiatric History: Reports: None Endocrine/Metabolic History: Reports: Hypothyroidism Hematologic History: Reports: None Other Hematologic History: low platlet counts Immunologic History: Reports: None Oncologic (Cancer) History: Reports: None Other Oncologic History: right cheek removed, currently has a spot on her back. Dermatologic History: Reports: None - Infectious Disease History Infectious Disease History: Reports: None - Past Surgical History Head Surgeries/Procedures: Reports: None Musculoskeletal Surgical History: Reports: Other (See Below) Other Musculoskeletal Surgeries/Procedures:: spine surgery - SUBSTANCE USE Tobacco Use Status *Q: Never Tobacco User Recreational Drug Use History: No - HOME MEDS Home Medications: Home Meds Levothyroxine 112 mcg PO DAILY 03/21/19 [History] Omeprazole 40 mg PO DAILY 03/21/19 [History] Rifaximin [Xifaxan] 550 mg PO BID 03/21/19 [History] Sertraline [Zoloft] 25 mg PO DAILY 03/21/19 [History] Spironolactone [Aldactone] 12.5 mg PO DAILY 03/21/19 [History] nadoloL [Corgard] 20 mg PO DAILY 03/21/19 [History] ursodioL [Ursodiol] 300 mg PO BID 03/21/19 [History] Ibuprofen 200 mg PO TID PRN 30 Days tablet 03/27/19 [Rx] Cyclobenzaprine [Flexeril] 5 mg PO BID PRN 07/27/19 [History] Lactulose [Cephulac] 20 gm PO DAILY 07/27/19 [History] Acetaminophen 650 mg PO Q4H PRN 03/26/20 [History] Benzonatate 100 mg PO TID PRN 03/26/20 [History] Calcium Carbonate/Vitamin D3 [Calcium 500-Vit D3 200 Caplet] 2 tab PO DAILY 03/26/20 [History] Cholecalciferol (Vitamin D3) [Vitamin D3] 5,000 unit PO DAILY 03/26/20 [History] Fexofenadine HCl [Mirian Allergy] 60 mg PO DAILY 03/26/20 [History] Simethicone 125 mg PO QIDPCANDBED 03/26/20 [History] - CURRENT (IN HOUSE) MEDS Current Meds: Current Medications Hydrocodone Bitart/Acetaminophen ([place] 325-5 Mg) 1 tab PO Q6H PRN PRN Reason: Pain Last Admin: 03/27/20 09:53 Dose: 1 tab Documented by: Enoxaparin Sodium (Lovenox) 40 mg SUBCUT Q24H [facility] Hydromorphone HCl (Dilaudid) 0.5 mg IVPUSH Q4H PRN PRN Reason: Pain Last Admin: 03/26/20 22:54 Dose: 0.5 mg Documented by: Lactated Ringer's (Ringers, Lactated) 1,000 mls @ 50 mls/hr IV ASDIRECTED [facility] Levothyroxine Sodium (Levothyroxine) 112 mcg PO DAILY [facility] Nadolol (Naldol) 20 mg PO DAILY [facility] Non-Formulary Medication (Omeprazole [Omeprazole]) 40 mg PO DAILY [facility] Non-Formulary Medication (Ursodiol [Ursodiol]) 300 mg PO BID [facility] Non-Formulary Medication (Cyclobenzaprine) 5 mg PO BID PRN PRN Reason: Muscle Spasm Rifaximin (Xifaxan) 550 mg PO BID [facility] Sertraline HCl (Zoloft) 25 mg PO DAILY [facility] Sodium Chloride (Saline Flush) 10 ml FLUSH ASDIRECTED PRN PRN Reason: Keep Vein Open Last Admin: 03/26/20 18:19 Dose: 10 ml Documented by: Spironolactone (Aldactone) 12.5 mg PO DAILY [facility] Discontinued Medications Hydromorphone HCl (Dilaudid) 0.5 mg IVPUSH ONETIME ONE Stop: 03/26/20 18:10 Last Admin: 03/26/20 18:15 Dose: 0.5 mg Documented by: Magnesium Sulfate (Magnesium Sulfate In Water Premix) 2 gm in 50 mls @ 25 mls/hr IV ONETIME ONE Stop: 03/27/20 12:24 Last Admin: 03/27/20 10:33 Dose: 25 mls/hr Documented by: Ondansetron HCl (Zofran) 4 mg IVPUSH ONETIME ONE Stop: 03/26/20 18:11 Last Admin: 03/26/20 18:15 Dose: 4 mg Documented by:
[2020-03-27] MEDS: Lactated Ringers 1,000 ML IV SCH (14:11)
[2020-03-27] MEDS ORDERED: Cyclobenzaprine 10 MG Tab PO PRN (14:53)
[2020-03-27] MEDS ORDERED: Enoxaparin 40 MG/0.4 ML Syringe SUBCUT SCH (15:00)
[2020-03-27] MEDS: Spironolactone 25 MG Tab PO SCH (15:52)
[2020-03-27] MEDS: Sertraline 25 MG Tab PO SCH (15:59)
[2020-03-27] MEDS: Rifaximin 550 MG Tab PO SCH (21:15)
[2020-03-27] MEDS: Ursodiol 300 MG Cap PO SCH (21:15)
[2020-03-27] MEDS ORDERED: Sodium Chloride 0.9% 250 ML IV SCH (22:00)
[2020-03-28] MEDS: Levothyroxine 112 MCG Tab PO SCH (06:05)
[2020-03-28] MEDS: Spironolactone 25 MG Tab PO SCH (08:53)
[2020-03-28] MEDS: Ursodiol 300 MG Cap PO SCH ×2 (08:53→21:12)
[2020-03-28] MEDS: Rifaximin 550 MG Tab PO SCH ×2 (08:53→21:12)
--- NOTE | 2020-03-28 08:56 | PCM.PN ---
- General Info Date of Service: 03/28/20 Functional Status: Reports: Pain Controlled, Tolerating Diet - Review of Systems General: Reports: No Symptoms HEENT: Reports: No Symptoms Pulmonary: Reports: No Symptoms Cardiovascular: Reports: No Symptoms Gastrointestinal: Reports: No Symptoms Genitourinary: Reports: No Symptoms Musculoskeletal: Reports: No Symptoms Skin: Reports: No Symptoms Neurological: Reports: No Symptoms Psychiatric: Reports: No Symptoms - Patient Data Vitals - Most Recent: Last Vital Signs Temp 36.8 C 03/28/20 07:44 Pulse 85 03/28/20 08:52 Resp 18 03/28/20 07:44 BP 114/55 L 03/28/20 08:52 Pulse Ox 92 L 03/28/20 07:44 Weight - Most Recent: 73.119 kg I&O - Last 24 Hours: Intake & Output 03/27/20 03/28/20 03/28/20 22:59 06:59 14:59 Intake Total 286 1047 Output Total 275 450 Balance 11 597 Lab Results Last 24 Hours: Laboratory Results - last 24 hr 03/27/20 03/27/20 03/27/20 Range/Units 08:10 12:25 12:25 WBC (3.98-10.04) K/mm3 RBC (3.98-5.22) M/mm3 Hgb (11.2-15.7) gm/dl Hct (34.1-44.9) % MCV (79.4-94.8) fl MCH (25.6-32.2) pg MCHC (32.2-35.5) g/dl RDW Std Deviation (36.4-46.3) fL Plt Count (182-369) K/mm3 MPV (9.4-12.3) fl Neut % (Auto) (34.0-71.1) % Lymph % (Auto) (19.3-51.7) % [place] % (Auto) (4.7-12.5) % Eos % (Auto) (0.7-5.8) Baso % (Auto) (0.1-1.2) % Neut # (Auto) (1.56-6.13) K/mm3 Lymph # (Auto) (1.18-3.74) K/mm3 [place] # (Auto) (0.24-0.36) K/mm3 Eos # (Auto) (0.04-0.36) K/mm3 Baso # (Auto) (0.01-0.08) K/mm3 Manual Slide Review PT 12.8 H (9.7-12.0) SECONDS INR 1.20 APTT 27.7 (21.7-31.4) SECONDS Sodium (136-145) mEq/L Potassium (3.5-5.1) mEq/L Chloride (98-107) mEq/L Carbon Dioxide (21-32) mEq/L Anion Gap (5-15) BUN (7-18) mg/dL Creatinine (0.55-1.02) mg/dL Est Cr Clr Drug Dosing mL/min Estimated GFR (MDRD) (>60) mL/min BUN/Creatinine Ratio (14-18) Glucose (83-115) mg/dL Calcium (8.5-10.1) mg/dL Blood Type O NEGATIVE 03/28/20 03/28/20 03/28/20 Range/Units 05:20 05:20 05:20 WBC 5.97 (3.98-10.04) K/mm3 RBC 2.93 L (3.98-5.22) M/mm3 Hgb 9.7 L D (11.2-15.7) gm/dl Hct 29.4 L (34.1-44.9) % MCV 100.3 H (79.4-94.8) fl MCH 33.1 H (25.6-32.2) pg MCHC 33.0 (32.2-35.5) g/dl RDW Std Deviation 61.6 H (36.4-46.3) fL Plt Count 77 L (182-369) K/mm3 MPV 10.8 (9.4-12.3) fl Neut % (Auto) 57.5 (34.0-71.1) % Lymph % (Auto) 23.6 (19.3-51.7) % [place] % (Auto) 16.2 H (4.7-12.5) % Eos % (Auto) 2.2 (0.7-5.8) Baso % (Auto) 0.3 (0.1-1.2) % Neut # (Auto) 3.43 (1.56-6.13) K/mm3 Lymph # (Auto) 1.41 (1.18-3.74) K/mm3 [place] # (Auto) 0.97 H (0.24-0.36) K/mm3 Eos # (Auto) 0.13 (0.04-0.36) K/mm3 Baso # (Auto) 0.02 (0.01-0.08) K/mm3 Manual Slide Review Abnormal smear PT 13.3 H (9.7-12.0) SECONDS INR 1.25 APTT (21.7-31.4) SECONDS Sodium 139 (136-145) mEq/L Potassium 3.7 (3.5-5.1) mEq/L Chloride 106 (98-107) mEq/L Carbon Dioxide 24 (21-32) mEq/L Anion Gap 12.7 (5-15) BUN 12 (7-18) mg/dL Creatinine 0.5 L (0.55-1.02) mg/dL Est Cr Clr Drug Dosing 99.58 mL/min Estimated GFR (MDRD) > 60 (>60) mL/min BUN/Creatinine Ratio 24.0 H (14-18) Glucose 100 (83-115) mg/dL Calcium 7.9 L (8.5-10.1) mg/dL Blood Type Med Orders - Current: Current Medications Hydrocodone Bitart/Acetaminophen ([place] 325-5 Mg) 1 tab PO Q6H PRN PRN Reason: Pain Last Admin: 03/27/20 18:08 Dose: 1 tab Documented by: Cyclobenzaprine HCl (Flexeril) 5 mg PO BID PRN PRN Reason: Muscle Spasm Enoxaparin Sodium (Lovenox) 40 mg SUBCUT Q24H [facility] Last Admin: 03/27/20 14:18 Dose: Not Given Documented by: Hydromorphone HCl (Dilaudid) 0.5 mg IVPUSH Q4H PRN PRN Reason: Pain Last Admin: 03/26/20 22:54 Dose: 0.5 mg Documented by: Lactated Ringer's (Ringers, Lactated) 1,000 mls @ 50 mls/hr IV ASDIRECTED [facility] Last Admin: 03/27/20 14:11 Dose: 50 mls/hr Documented by: Sodium Chloride (Normal Saline) 250 mls @ 100 mls/hr IV ASDIRECTED [facility] Levothyroxine Sodium (Levothyroxine) 112 mcg PO ACBREAKFAST [facility] Last Admin: 03/28/20 06:05 Dose: Not Given Documented by: Nadolol (Naldol) 20 mg PO DAILY [facility] Last Admin: 03/28/20 08:52 Dose: 20 mg Documented by: Pantoprazole Sodium (Protonix) 40 mg PO DAILY [facility] Rifaximin (Xifaxan) 550 mg PO BID [facility] Last Admin: 03/28/20 08:53 Dose: 550 mg Documented by: Sertraline HCl (Zoloft) 25 mg PO DAILY [facility] Last Admin: 03/27/20 15:59 Dose: 25 mg Documented by: Sodium Chloride (Saline Flush) 10 ml FLUSH ASDIRECTED PRN PRN Reason: Keep Vein Open Last Admin: 03/26/20 18:19 Dose: 10 ml Documented by: Spironolactone (Aldactone) 12.5 mg PO DAILY [facility] Last Admin: 03/28/20 08:53 Dose: 12.5 mg Documented by: Ursodiol (Actigal) 300 mg PO BID [facility] Last Admin: 03/28/20 08:53 Dose: 300 mg Documented by: Discontinued Medications Hydromorphone HCl (Dilaudid) 0.5 mg IVPUSH ONETIME ONE Stop: 03/26/20 18:10 Last Admin: 03/26/20 18:15 Dose: 0.5 mg Documented by: Magnesium Sulfate (Magnesium Sulfate In Water Premix) 2 gm in 50 mls @ 25 mls/hr IV ONETIME ONE Stop: 03/27/20 12:24 Last Admin: 03/27/20 10:33 Dose: 25 mls/hr Documented by: Ondansetron HCl (Zofran) 4 mg IVPUSH ONETIME ONE Stop: 03/26/20 18:11 Last Admin: 03/26/20 18:15 Dose: 4 mg Documented by: - Exam Quality Assessment: Supplemental Oxygen, DVT Prophylaxis General: Alert, Oriented, Cooperative, No Acute Distress HEENT: Pupils Equal, Pupils Reactive, EOMI Neck: Trachea Midline, No JVD Lungs: Clear to Auscultation, Normal Respiratory Effort Cardiovascular: Regular Rate, Regular Rhythm GI/Abdominal Exam: Normal Bowel Sounds, Soft, Non-Tender, No Distention (Female) Exam: Deferred Back Exam: Normal Inspection Extremities: Normal Inspection, Normal Capillary Refill Skin: Warm, Dry, Intact Wound/Incisions: Dressing Dry and Intact Neurological: No New Focal Deficit Psy/Mental Status: Alert, Normal Affect, Normal Mood Sepsis Event Note - Evaluation Sepsis Screening Result: No Definite Risk - Focused Exam Vital Signs: Vital Signs Temp Pulse Pulse Resp BP BP Pulse Ox 03/28/20 08:52 85 114/55 L 03/28/20 07:44 36.8 C 85 18 114/55 L 92 L 03/28/20 04:39 37.0 C 89 16 117/65 93 L 03/27/20 23:46 37.0 C 89 18 124/56 L 92 L 03/27/20 22:35 37.0 C 89 18 124/56 L 92 L 03/27/20 22:21 37.2 C 81 20 115/57 L 92 L 03/27/20 22:20 37.2 C 81 20 115/57 L 92 L 03/27/20 22:05 37.3 C 83 20 115/59 L 94 L 03/27/20 22:04 37.3 C 83 20 115/59 L 94 L - Problem List Review Problem List Initiated/Reviewed/Updated: Yes - My Orders Last 24 Hours: My Active Orders 03/27/20 14:10 Admission Status [Patient Status] [ADT] Routine 03/27/20 15:00 Enoxaparin [Lovenox] 40 mg SUBCUT Q24H 03/28/20 Breakfast NPO After Midnight [Nothing per Oral After Midnight Diet] [DIET] - Plan Plan:: * 74-year-old female with a history of ground-level fall fall at the snf yesterday * X-ray of the right hip shows a displaced intertrochanteric fracture. * Labs in the emergency department reveal bilirubin 2.9, AST 69, alk phos 294, CRP 2.1, platelet count of 68. Patient does have a history of elevated bilirubin and this is in the normal range for her. Patient also has a history of chronic thrombocytopenia. * Vital signs in the emergency department: Temp 97.4, pulse 77, respiratory rate 18, blood pressure 138/65, pulse ox 90% on room air. * Repeat platelet count this mornin PLAN: * Patient will be admitted to the [facility] floor observation status. * Dr. Childs will consult on the patient and evaluate for surgery. * SHERINE Wallace notified of patient's most recent platelet count. She is requesting that the patient be rescheduled for surgery tomorrow and that the p atient received platelets today. * Lovenox for DVT prophylaxis * Monitor vital signs and intake and output. * Patient is n.p.o. at this time. * Will repeat labs in the a.m. * Incentive spirometer * PT/OT will evaluate and treat after surgery.
[2020-03-28] MEDS: Pantoprazole 40 MG Tab.CR PO SCH (08:59)
[2020-03-28] MEDS: Sertraline 25 MG Tab PO SCH (08:59)
[2020-03-28] MEDS ORDERED: Bupivacaine 0.25% 10 ML SDV ONE (10:44)
[2020-03-28] MEDS ORDERED: fentaNYL 250 MCG/5 ML SDV ONE (10:52)
[2020-03-28] MEDS ORDERED: Lidocaine 1% 4 ML ONE (10:52)
[2020-03-28] MEDS ORDERED: Lactated Ringers 1,000 ML ONE ×3 (10:52→13:13)
[2020-03-28] MEDS ORDERED: Ondansetron 4 MG/2 ML SDV ONE (10:52)
[2020-03-28] MEDS ORDERED: ceFAZolin 1 GM Vial ONE ×2 (10:52→12:20)
[2020-03-28] MEDS ORDERED: Propofol 200 MG/20 ML SDV ONE ×2 (10:52→10:53)
[2020-03-28] MEDS ORDERED: Ketamine 500 mg/10 ML MDV ONE (10:53)
--- NOTE | 2020-03-28 14:15 | PCM.PN ---
- General Info Date of Service: 03/28/20 Admission Dx/Problem (Free Text): Admission Diagnosis/Problem Admission Diagnosis/Problem Hip fracture, intertrochanteric Subjective Update: Patient reports that she is feeling well. States that she is eager to have surgery today. Functional Status: Reports: Pain Controlled, Urinating (Hwang catheter), Incentive Spirometry. Denies: Tolerating Diet (N.p.o. for surgery) - Review of Systems General: Reports: No Symptoms HEENT: Reports: No Symptoms Pulmonary: Reports: No Symptoms Cardiovascular: Reports: No Symptoms Gastrointestinal: Reports: No Symptoms Genitourinary: Reports: No Symptoms (Hwang catheter) Musculoskeletal: Reports: Other (Right hip pain due to fracture) Skin: Reports: Jaundice Neurological: Reports: Confusion Psychiatric: Reports: Confusion - Patient Data Vitals - Most Recent: Last Vital Signs Temp 100.7 F H 03/28/20 11:15 Pulse 80 03/28/20 11:15 Resp 18 03/28/20 11:15 BP 113/53 L 03/28/20 11:15 Pulse Ox 93 L 03/28/20 10:03 Weight - Most Recent: 161 lb 3.197 oz I&O - Last 24 Hours: Intake & Output 03/27/20 03/28/20 03/28/20 22:59 06:59 14:59 Intake Total 286 1047 0 Output Total 275 450 Balance 11 597 0 Lab Results Last 24 Hours: Laboratory Results - last 24 hr 03/27/20 03/28/20 03/28/20 Range/Units 08:10 05:20 05:20 WBC 5.97 (3.98-10.04) K/mm3 RBC 2.93 L (3.98-5.22) M/mm3 Hgb 9.7 L D (11.2-15.7) gm/dl Hct 29.4 L (34.1-44.9) % MCV 100.3 H (79.4-94.8) fl MCH 33.1 H (25.6-32.2) pg MCHC 33.0 (32.2-35.5) g/dl RDW Std Deviation 61.6 H (36.4-46.3) fL Plt Count 77 L (182-369) K/mm3 MPV 10.8 (9.4-12.3) fl Neut % (Auto) 57.5 (34.0-71.1) % Lymph % (Auto) 23.6 (19.3-51.7) % [place] % (Auto) 16.2 H (4.7-12.5) % Eos % (Auto) 2.2 (0.7-5.8) Baso % (Auto) 0.3 (0.1-1.2) % Neut # (Auto) 3.43 (1.56-6.13) K/mm3 Lymph # (Auto) 1.41 (1.18-3.74) K/mm3 [place] # (Auto) 0.97 H (0.24-0.36) K/mm3 Eos # (Auto) 0.13 (0.04-0.36) K/mm3 Baso # (Auto) 0.02 (0.01-0.08) K/mm3 Manual Slide Review Abnormal smear PT 13.3 H (9.7-12.0) SECONDS INR 1.25 Sodium (136-145) mEq/L Potassium (3.5-5.1) mEq/L Chloride (98-107) mEq/L Carbon Dioxide (21-32) mEq/L Anion Gap (5-15) BUN (7-18) mg/dL Creatinine (0.55-1.02) mg/dL Est Cr Clr Drug Dosing mL/min Estimated GFR (MDRD) (>60) mL/min BUN/Creatinine Ratio (14-18) Glucose (83-115) mg/dL Calcium (8.5-10.1) mg/dL Blood Type O NEGATIVE Gel Antibody Screen Positive 03/28/20 03/28/20 Range/Units 05:20 11:20 WBC (3.98-10.04) K/mm3 RBC (3.98-5.22) M/mm3 Hgb (11.2-15.7) gm/dl Hct (34.1-44.9) % MCV (79.4-94.8) fl MCH (25.6-32.2) pg MCHC (32.2-35.5) g/dl RDW Std Deviation (36.4-46.3) fL Plt Count 113 L (182-369) K/mm3 MPV (9.4-12.3) fl Neut % (Auto) (34.0-71.1) % Lymph % (Auto) (19.3-51.7) % [place] % (Auto) (4.7-12.5) % Eos % (Auto) (0.7-5.8) Baso % (Auto) (0.1-1.2) % Neut # (Auto) (1.56-6.13) K/mm3 Lymph # (Auto) (1.18-3.74) K/mm3 [place] # (Auto) (0.24-0.36) K/mm3 Eos # (Auto) (0.04-0.36) K/mm3 Baso # (Auto) (0.01-0.08) K/mm3 Manual Slide Review PT (9.7-12.0) SECONDS INR Sodium 139 (136-145) mEq/L Potassium 3.7 (3.5-5.1) mEq/L Chloride 106 (98-107) mEq/L Carbon Dioxide 24 (21-32) mEq/L Anion Gap 12.7 (5-15) BUN 12 (7-18) mg/dL Creatinine 0.5 L (0.55-1.02) mg/dL Est Cr Clr Drug Dosing 99.58 mL/min Estimated GFR (MDRD) > 60 (>60) mL/min BUN/Creatinine Ratio 24.0 H (14-18) Glucose 100 (83-115) mg/dL Calcium 7.9 L (8.5-10.1) mg/dL Blood Type Gel Antibody Screen Med Orders - Current: Current Medications Hydrocodone Bitart/Acetaminophen ([place] 325-5 Mg) 1 tab PO Q6H PRN PRN Reason: Pain Last Admin: 03/27/20 18:08 Dose: 1 tab Documented by: Cyclobenzaprine HCl (Flexeril) 5 mg PO BID PRN PRN Reason: Muscle Spasm Enoxaparin Sodium (Lovenox) 40 mg SUBCUT Q24H [facility] Hydromorphone HCl (Dilaudid) 0.5 mg IVPUSH Q4H PRN PRN Reason: Pain Last Admin: 03/26/20 22:54 Dose: 0.5 mg Documented by: Lactated Ringer's (Ringers, Lactated) 1,000 mls @ 50 mls/hr IV ASDIRECTED CARLOS Last Admin: 03/27/20 14:11 Dose: 50 mls/hr Documented by: Sodium Chloride (Normal Saline) 250 mls @ 100 mls/hr IV ASDIRECTED [facility] Last Admin: 03/28/20 09:28 Dose: 100 mls/hr Documented by: Levothyroxine Sodium (Levothyroxine) 112 mcg PO ACBREAKFAST [facility] Last Admin: 03/28/20 06:05 Dose: Not Given Documented by: Nadolol (Naldol) 20 mg PO DAILY [facility] Last Admin: 03/28/20 08:52 Dose: 20 mg Documented by: Pantoprazole Sodium (Protonix) 40 mg PO DAILY [facility] Last Admin: 03/28/20 08:59 Dose: Not Given Documented by: Rifaximin (Xifaxan) 550 mg PO BID [facility] Last Admin: 03/28/20 08:53 Dose: 550 mg Documented by: Sertraline HCl (Zoloft) 25 mg PO DAILY [facility] Last Admin: 03/28/20 08:59 Dose: Not Given Documented by: Sodium Chloride (Saline Flush) 10 ml FLUSH ASDIRECTED PRN PRN Reason: Keep Vein Open Last Admin: 03/26/20 18:19 Dose: 10 ml Documented by: Spironolactone (Aldactone) 12.5 mg PO DAILY [facility] Last Admin: 03/28/20 08:53 Dose: 12.5 mg Documented by: Ursodiol (Actigal) 300 mg PO BID [facility] Last Admin: 03/28/20 08:53 Dose: 300 mg Documented by: Discontinued Medications Bupivacaine HCl (Sensorcaine-Mpf 0.25%) Confirm Administered Dose 20 ml .ROUTE .STK-MED ONE Stop: 03/28/20 10:45 Cefazolin Sodium (Ancef) Confirm Administered Dose 2 gm .ROUTE .STK-MED ONE Stop: 03/28/20 10:53 Cefazolin Sodium (Ancef) Confirm Administered Dose 2 gm .ROUTE .STK-MED ONE Stop: 03/28/20 12:21 Enoxaparin Sodium (Lovenox) 40 mg SUBCUT Q24H [facility] Last Admin: 03/27/20 14:18 Dose: Not Given Documented by: Fentanyl (Sublimaze) Confirm Administered Dose 250 mcg .ROUTE .STK-MED ONE Stop: 03/28/20 10:53 Hydromorphone HCl (Dilaudid) 0.5 mg IVPUSH ONETIME ONE Stop: 03/26/20 18:10 Last Admin: 03/26/20 18:15 Dose: 0.5 mg Documented by: Magnesium Sulfate (Magnesium Sulfate In Water Premix) 2 gm in 50 mls @ 25 mls/hr IV ONETIME ONE Stop: 03/27/20 12:24 Last Admin: 03/27/20 10:33 Dose: 25 mls/hr Documented by: Lidocaine HCl (Xylocaine-Mpf 1%) Confirm Administered Dose 4 mls @ as directed .ROUTE .STK-MED ONE Stop: 03/28/20 10:53 Lactated Ringer's (Ringers, Lactated) Confirm Administered Dose 1,000 mls @ as directed .ROUTE .STK-MED ONE Stop: 03/28/20 10:53 Lactated Ringer's (Ringers, Lactated) Confirm Administered Dose 1,000 mls @ as directed .ROUTE .STK-MED ONE Stop: 03/28/20 13:14 Lactated Ringer's (Ringers, Lactated) Confirm Administered Dose 1,000 mls @ as directed .ROUTE .STK-MED ONE Stop: 03/28/20 13:14 Ketamine HCl (Ketalar) Confirm Administered Dose 500 mg .ROUTE .STK-MED ONE Stop: 03/28/20 10:54 Miscellaneous Medication (Phenylephrine 1 Mg/10 Ml-Ns) Confirm Administered Dose 1 mg .ROUTE .STK-MED ONE Stop: 03/28/20 12:19 Ondansetron HCl (Zofran) 4 mg IVPUSH ONETIME ONE Stop: 03/26/20 18:11 Last Admin: 03/26/20 18:15 Dose: 4 mg Documented by: Ondansetron HCl (Zofran) Confirm Administered Dose 4 mg .ROUTE .STK-MED ONE Stop: 03/28/20 10:53 Propofol (Diprivan 20 Ml) Confirm Administered Dose 400 mg .ROUTE .STK-MED ONE Stop: 03/28/20 10:53 Propofol (Diprivan 20 Ml) Confirm Administered Dose 200 mg .ROUTE .STK-MED ONE Stop: 03/28/20 10:54 - Exam Quality Assessment: Urine Catheter, DVT Prophylaxis (SCDs). No: Supplemental Oxygen General: Alert, Oriented, Cooperative, No Acute Distress HEENT: Pupils Equal, Pupils Reactive, Mucous Membr. Moist/[place] Neck: Supple, Trachea Midline. No: Lymphadenopathy Lungs: Normal Respiratory Effort, Crackles (Left lower lobe) Cardiovascular: Regular Rate, Regular Rhythm, No Murmurs GI/Abdominal Exam: Normal Bowel Sounds, Soft, Non-Tender, No Distention (Female) Exam: Deferred Extremities: Normal Inspection, Non-Tender, No Pedal Edema, Normal Capillary Refill, Limited Range of Motion (Right lower extremity due to fracture, awaiting surgery) Peripheral Pulses: 2+: Radial (L), Radial (R), Dorsalis Pedis (L), Dorsalis Pedis (R) Skin: Warm, Dry, Intact Neurological: No New Focal Deficit Psy/Mental Status: Alert, Normal Affect, Normal Mood Sepsis Event Note - Evaluation Sepsis Screening Result: No Definite Risk - Focused Exam Vital Signs: Vital Signs Temp Pulse Pulse Resp BP BP Pulse Ox 03/28/20 11:15 100.7 F H 80 18 113/53 L 03/28/20 10:03 98.7 F 76 18 122/57 L 93 L 03/28/20 09:50 99.6 F 77 18 116/96 H 03/28/20 08:52 85 114/55 L 03/28/20 07:44 98.2 F 85 18 114/55 L 92 L 03/28/20 04:39 98.6 F 89 16 117/65 93 L - Problem List & Annotations (1) Abnormal LFTs (liver function tests) SNOMED Code(s): 415771967 Code(s): R94.5 - ABNORMAL RESULTS OF LIVER FUNCTION STUDIES Status: Acute Priority: High Current Visit: Yes (2) Hip fracture, intertrochanteric SNOMED Code(s): 008272267 Code(s): S72.143A - DISPLACED INTERTROCHANTERIC FRACTURE OF UNSP FEMUR, INIT Status: Acute Priority: High Current Visit: Yes Qualifiers: Encounter type: initial encounter Fracture type: closed Fracture alignment: displaced Laterality: right Qualified Code(s): S72.141A - Displaced intertrochanteric fracture of right femur, initial encounter for closed fracture (3) Fall SNOMED Code(s): 9883550, 810355221 Code(s): W19.XXXA - UNSPECIFIED FALL, INITIAL ENCOUNTER Status: Acute Priority: High Current Visit: Yes Qualifiers: Encounter type: initial encounter Qualified Code(s): W19.XXXA - Unspecified fall, initial encounter (4) Hypertension SNOMED Code(s): 84957988 Code(s): I10 - ESSENTIAL (PRIMARY) HYPERTENSION Status: Chronic Priority: High Current Visit: Yes Qualifiers: Hypertension type: unspecified Qualified Code(s): I10 - Essential (primary) hypertension - Problem List Review Problem List Initiated/Reviewed/Updated: Yes - My Orders Last 24 Hours: My Active Orders 03/27/20 14:20 Antiembolic Devices [RC] PER UNIT ROUTINE SCD [Sequential Compression Device] [OM.PC] Routine 03/27/20 14:53 Cyclobenzaprine [Flexeril] 5 mg PO BID PRN 03/27/20 16:00 Sertraline [Zoloft] 25 mg PO DAILY Spironolactone [Aldactone] 12.5 mg PO DAILY 03/27/20 18:16 Communication Order [RC] ROUTINE 03/27/20 21:00 Rifaximin [Xifaxan] 550 mg PO BID ursodioL [Actigal] 300 mg PO BID 03/27/20 22:00 Sodium Chloride 0.9% [Normal Saline] 250 ml IV ASDIRECTED 03/28/20 06:00 Levothyroxine 112 mcg PO ACBREAKFAST 03/28/20 09:00 Pantoprazole [ProTONIX] 40 mg PO DAILY nadoloL [Naldol] 20 mg PO DAILY - Assessment Assessment:: 03/28/20 * Vital signs remained stable patient is 92 to 93% on room air * Lab work reveals hemoglobin 9.7, platelet 70 1:07 unit last evening, potassium 3.7, BUN 12, creatinine 0.5, GFR greater than 60, * Patient's platelet level after receiving second unit of platelets this morning is 117, SHERINE Delacruz notified of this. * Patient is awaiting surgery for right hip fracture. * She has been n.p.o. since midnight. * Incentive spirometry at the bedside. - Plan Plan:: * 74-year-old female with a [facility] * X-ray of the right hip shows a displaced intertrochanteric fracture. * Labs in the emergency department reveal bilirubin 2.9, AST 69, alk phos 294, CRP 2.1, platelet count of 68. Patient does have a history of elevated bilirubin and this is in the normal range for her. Patient also has a history of chronic thrombocytopenia. * Vital signs in the emergency department: Temp 97.4, pulse 77, respiratory rate 18, blood pressure 138/65, pulse ox 90% on room air. * Repeat platelet count this mornin PLAN: * Patient will be admitted to the [facility] floor observation status. * Dr. Childs will consult on the patient and evaluate for surgery. * SHERINE Wallace notified of patient's most recent platelet count. She is requesting that the patient be rescheduled for surgery tomorrow and that the patient received platelets today. * Lovenox for DVT prophylaxis * Monitor vital signs and intake and output. * Patient is n.p.o. at this time. * Will repeat labs in the a.m. * Incentive spirometer * PT/OT will evaluate and treat after surgery. 03/28/20 * Dr. Childs to perform surgery to right hip fracture today. * SCDs on for DVT prophylaxis. Lovenox on hold due to low platelet count. * To her vital signs and intake and output. * Repeat labs in the a.m. * Incentive spirometer every 1 hour while awake * PT OT to eval and treat patient * bibliographic services specialist for discharge planning * Dietitian to consult for nutritional needs
[2020-03-28] MEDS ORDERED: fentaNYL 100 MCG/2 ML SDV IVPUSH PRN (14:25)
--- NOTE | 2020-03-28 14:26 | PCM.POSTAN ---
POST ANESTHESIA ASSESSMENT - MENTAL STATUS Mental Status: Alert, Somnolent - VITAL SIGNS Vital Signs: Last Vital Signs Temp 38.2 C H 03/28/20 11:15 Pulse 80 03/28/20 11:15 Resp 18 03/28/20 11:15 BP 113/53 L 03/28/20 11:15 Pulse Ox 93 L 03/28/20 10:03 - RESPIRATORY Respiratory Status: Respiratory Rate WNL, Airway Patent, O2 Saturation Stable, Supplemental Oxygen - CARDIOVASCULAR CV Status: Pulse Rate WNL, Blood Pressure Stable - GASTROINTESTINAL GI Status: No Symptoms - PAIN Pain Score: 0 - POST OP HYDRATION Hydration Status: Adequate & Stable - OBSERVATIONS Free Text/Narrative:: no anesthesia complications noted
--- NOTE | 2020-03-28 14:44 | CR ---
PROCEDURE INFORMATION: Exam: [place] Fluoroscopy, Up to 1 Hour Physician Time; Radiologist Not Present For Fluoroscopy Exam date and time: 03/28/2020 1:27 PM Age: 74 years old Clinical indication: Device placement; Additional info: Right hip gamma nailing intraoperative films TECHNIQUE: Imaging protocol: Fluoroscopy , up to 1 hour physician or other qualified health resident care coordinator time. This radiologist did not supervise this procedure. Exam supervised by facility personnel. Report for radiation dosage reporting and documentation only. COMPARISON: No relevant prior studies available. RADIATION DOSE METRICS: Fluoroscopy time (seconds): 284 s Number of fluoro spot images: 8 Spots FINDINGS: Procedural imaging: ORIF of the right femur. Notes: Fluoroscopy supervised by facility personnel. See also separate procedure report. IMPRESSION: Fluoroscopy dosage documentation. See also separate procedure notes. Thank you for allowing us to participate in the care of your patient. Dictated and Authenticated by: Nagi Munoz MD 03/28/2020 3:36 PM Central Time ([place] & [place]) JEANIE
[2020-03-28] MEDS: ceFAZolin 2 GM in Premix Bag 1 BAG IV SCH ×2 (15:57→22:53)
[2020-03-28] MEDS: Acetaminophen/HYDROcodone 325-5 MG Tab PO PRN (16:13)
[2020-03-28] MEDS: Lactated Ringers 1,000 ML IV SCH (16:56)
[2020-03-28] MEDS: Enoxaparin 40 MG/0.4 ML Syringe SUBCUT SCH (21:12)
[2020-03-29] MEDS: Levothyroxine 112 MCG Tab PO SCH (06:25)
[2020-03-29] MEDS: Acetaminophen/HYDROcodone 325-5 MG Tab PO PRN ×3 (06:25→20:35)
[2020-03-29] MEDS: ceFAZolin 2 GM in Premix Bag 1 BAG IV SCH (06:27)
[2020-03-29] MEDS ORDERED: Magnesium Hydroxide 400 MG/5 ML Susp 30 ML Cup PO ONE (08:00)
[2020-03-29] MEDS: Sertraline 25 MG Tab PO SCH (09:21)
[2020-03-29] MEDS: Rifaximin 550 MG Tab PO SCH ×2 (09:21→20:33)
[2020-03-29] MEDS: Spironolactone 25 MG Tab PO SCH (09:22)
[2020-03-29] MEDS: Ursodiol 300 MG Cap PO SCH ×2 (09:22→20:35)
[2020-03-29] MEDS: Pantoprazole 40 MG Tab.CR PO SCH (09:22)
[2020-03-29] MEDS ORDERED: Magnesium Sulfate/Water 4 GM/100 ML BAG IV ONE (13:44)
--- NOTE | 2020-03-29 13:45 | PCM.PN ---
- General Info Date of Service: 03/29/20 Functional Status: Reports: Pain Controlled, Tolerating Diet - Review of Systems General: Reports: No Symptoms HEENT: Reports: No Symptoms Pulmonary: Reports: No Symptoms Cardiovascular: Reports: No Symptoms Gastrointestinal: Reports: No Symptoms Genitourinary: Reports: No Symptoms Musculoskeletal: Reports: No Symptoms Skin: Reports: No Symptoms Neurological: Reports: No Symptoms Psychiatric: Reports: No Symptoms - Patient Data Vitals - Most Recent: Last Vital Signs Temp 36.8 C 03/29/20 08:10 Pulse 85 03/29/20 09:21 Resp 22 H 03/29/20 08:10 BP 110/59 L 03/29/20 09:21 Pulse Ox 91 L 03/29/20 08:10 Weight - Most Recent: 73.437 kg I&O - Last 24 Hours: Intake & Output 03/28/20 03/29/20 03/29/20 22:59 06:59 14:59 Intake Total 600 1025 120 Output Total 940 625 Balance -340 400 120 Lab Results Last 24 Hours: Laboratory Results - last 24 hr 03/29/20 03/29/20 03/29/20 Range/Units 06:59 06:59 08:08 WBC 5.21 (3.98-10.04) K/mm3 RBC 2.33 L (3.98-5.22) M/mm3 Hgb 7.7 L D 8.0 L (11.2-15.7) gm/dl Hct 23.8 L (34.1-44.9) % MCV 102.1 H (79.4-94.8) fl MCH 33.0 H (25.6-32.2) pg MCHC 32.4 (32.2-35.5) g/dl RDW Std Deviation 60.4 H (36.4-46.3) fL Plt Count 87 L (182-369) K/mm3 MPV 10.2 (9.4-12.3) fl Neut % (Auto) 51.2 (34.0-71.1) % Lymph % (Auto) 25.5 (19.3-51.7) % [place] % (Auto) 21.7 H (4.7-12.5) % Eos % (Auto) 1.0 (0.7-5.8) Baso % (Auto) 0.4 (0.1-1.2) % Neut # (Auto) 2.67 (1.56-6.13) K/mm3 Lymph # (Auto) 1.33 (1.18-3.74) K/mm3 [place] # (Auto) 1.13 H (0.24-0.36) K/mm3 Eos # (Auto) 0.05 (0.04-0.36) K/mm3 Baso # (Auto) 0.02 (0.01-0.08) K/mm3 Manual Slide Review Not Reportable Sodium 138 (136-145) mEq/L Potassium 3.8 (3.5-5.1) mEq/L Chloride 106 (98-107) mEq/L Carbon Dioxide 26 (21-32) mEq/L Anion Gap 9.8 (5-15) BUN 16 (7-18) mg/dL Creatinine 0.7 (0.55-1.02) mg/dL Est Cr Clr Drug Dosing 71.41 mL/min Estimated GFR (MDRD) > 60 (>60) mL/min BUN/Creatinine Ratio 22.9 H (14-18) Glucose 114 (83-115) mg/dL Calcium 7.7 L (8.5-10.1) mg/dL Magnesium 1.5 L (1.8-2.4) mg/dl Total Bilirubin 2.6 H (0.2-1.0) mg/dL AST 52 H (15-37) U/L ALT 20 (14-59) U/L Alkaline Phosphatase 139 H (46-116) U/L Total Protein 4.2 L (6.4-8.2) g/dl Albumin 1.7 L (3.4-5.0) g/dl Globulin 2.5 gm/dL Albumin/Globulin Ratio 0.7 L (1-2) Med Orders - Current: Current Medications Hydrocodone Bitart/Acetaminophen ([place] 325-5 Mg) 1 tab PO Q6H PRN PRN Reason: Pain Last Admin: 03/29/20 06:25 Dose: 1 tab Documented by: Cyclobenzaprine HCl (Flexeril) 5 mg PO BID PRN PRN Reason: Muscle Spasm Enoxaparin Sodium (Lovenox) 40 mg SUBCUT Q24H [facility] Last Admin: 03/28/20 21:12 Dose: 40 mg Documented by: Hydromorphone HCl (Dilaudid) 0.5 mg IVPUSH Q4H PRN PRN Reason: Pain Last Admin: 03/26/20 22:54 Dose: 0.5 mg Documented by: Magnesium Sulfate (Magnesium Sulfate In Water Premix) 4 gm in 100 mls @ 25 mls/hr IV ONETIME ONE Stop: 03/29/20 17:43 Levothyroxine Sodium (Levothyroxine) 112 mcg PO ACBREAKFAST [facility] Last Admin: 03/29/20 06:25 Dose: 112 mcg Documented by: Nadolol (Naldol) 20 mg PO DAILY [facility] Last Admin: 03/29/20 09:21 Dose: 20 mg Documented by: Pantoprazole Sodium (Protonix) 40 mg PO DAILY [facility] Last Admin: 03/29/20 09:22 Dose: 40 mg Documented by: Rifaximin (Xifaxan) 550 mg PO BID [facility] Last Admin: 03/29/20 09:21 Dose: 550 mg Documented by: Sertraline HCl (Zoloft) 25 mg PO DAILY [facility] Last Admin: 03/29/20 09:21 Dose: 25 mg Documented by: Sodium Chloride (Saline Flush) 10 ml FLUSH ASDIRECTED PRN PRN Reason: Keep Vein Open Last Admin: 03/26/20 18:19 Dose: 10 ml Documented by: Spironolactone (Aldactone) 12.5 mg PO DAILY [facility] Last Admin: 03/29/20 09:22 Dose: 12.5 mg Documented by: Ursodiol (Actigal) 300 mg PO BID [facility] Last Admin: 03/29/20 09:22 Dose: 300 mg Documented by: Discontinued Medications Bupivacaine HCl (Sensorcaine-Mpf 0.25%) Confirm Administered Dose 20 ml .ROUTE .STK-MED ONE Stop: 03/28/20 10:45 Last Admin: 03/28/20 13:55 Dose: 20 ml Documented by: Cefazolin Sodium (Ancef) Confirm Administered Dose 2 gm .ROUTE .STK-MED ONE Stop: 03/28/20 10:53 Cefazolin Sodium (Ancef) Confirm Administered Dose 2 gm .ROUTE .STK-MED ONE Stop: 03/28/20 12:21 Enoxaparin Sodium (Lovenox) 40 mg SUBCUT Q24H [facility] Last Admin: 03/27/20 14:18 Dose: Not Given Documented by: Fentanyl (Sublimaze) Confirm Administered Dose 250 mcg .ROUTE .STK-MED ONE Stop: 03/28/20 10:53 Fentanyl (Sublimaze) 50 mcg IVPUSH Q5M PRN PRN Reason: Pain Stop: 03/28/20 18:00 Hydromorphone HCl (Dilaudid) 0.5 mg IVPUSH ONETIME ONE Stop: 03/26/20 18:10 Last Admin: 03/26/20 18:15 Dose: 0.5 mg Documented by: Magnesium Sulfate (Magnesium Sulfate In Water Premix) 2 gm in 50 mls @ 25 mls/hr IV ONETIME ONE Stop: 03/27/20 12:24 Last Admin: 03/27/20 10:33 Dose: 25 mls/hr Documented by: Lactated Ringer's (Ringers, Lactated) 1,000 mls @ 50 mls/hr IV ASDIRECTED [facility] Last Admin: 03/28/20 16:56 Dose: 50 mls/hr Documented by: Sodium Chloride (Normal Saline) 250 mls @ 100 mls/hr IV ASDIRECTED [facility] Last Admin: 03/28/20 09:28 Dose: 100 mls/hr Documented by: Lidocaine HCl (Xylocaine-Mpf 1%) Confirm Administered Dose 4 mls @ as directed .ROUTE .STK-MED ONE Stop: 03/28/20 10:53 Lactated Ringer's (Ringers, Lactated) Confirm Administered Dose 1,000 mls @ as directed .ROUTE .STK-MED ONE Stop: 03/28/20 10:53 Lactated Ringer's (Ringers, Lactated) Confirm Administered Dose 1,000 mls @ as directed .ROUTE .STK-MED ONE Stop: 03/28/20 13:14 Lactated Ringer's (Ringers, Lactated) Confirm Administered Dose 1,000 mls @ as directed .ROUTE .STK-MED ONE Stop: 03/28/20 13:14 Cefazolin Sodium/Dextrose 2 gm (/ Premix) 50 mls @ 100 mls/hr IV Q8H [facility] Stop: 03/29/20 07:29 Last Admin: 03/29/20 06:27 Dose: 100 mls/hr Documented by: Ketamine HCl (Ketalar) Confirm Administered Dose 500 mg .ROUTE .STK-MED ONE Stop: 03/28/20 10:54 Magnesium Hydroxide (Milk Of Magnesia) 30 ml PO ONETIME ONE Stop: 03/29/20 08:01 Last Admin: 03/29/20 09:21 Dose: 30 ml Documented by: Miscellaneous Medication (Phenylephrine 1 Mg/10 Ml-Ns) Confirm Administered Dose 1 mg .ROUTE .STK-MED ONE Stop: 03/28/20 12:19 Ondansetron HCl (Zofran) 4 mg IVPUSH ONETIME ONE Stop: 03/26/20 18:11 Last Admin: 03/26/20 18:15 Dose: 4 mg Documented by: Ondansetron HCl (Zofran) Confirm Administered Dose 4 mg .ROUTE .STK-MED ONE Stop: 03/28/20 10:53 Propofol (Diprivan 20 Ml) Confirm Administered Dose 400 mg .ROUTE .STK-MED ONE Stop: 03/28/20 10:53 Propofol (Diprivan 20 Ml) Confirm Administered Dose 200 mg .ROUTE .STK-MED ONE Stop: 03/28/20 10:54 - Exam Quality Assessment: Supplemental Oxygen, Urine Catheter, DVT Prophylaxis General: Alert, Oriented, Cooperative, No Acute Distress HEENT: Pupils Equal, Pupils Reactive, EOMI Neck: Trachea Midline, No JVD Lungs: Clear to Auscultation, Normal Respiratory Effort Cardiovascular: Regular Rate, Regular Rhythm GI/Abdominal Exam: Normal Bowel Sounds, Soft, Non-Tender, No Distention (Female) Exam: Deferred Back Exam: Normal Inspection Extremities: Normal Inspection, Normal Capillary Refill Skin: Warm Neurological: No New Focal Deficit, Normal Speech Psy/Mental Status: Alert Sepsis Event Note - Evaluation Sepsis Screening Result: No Definite Risk - Focused Exam Vital Signs: Vital Signs Temp Pulse Resp BP BP Pulse Ox 03/29/20 09:21 85 110/59 L 03/29/20 08:10 36.8 C 85 22 H 110/59 L 91 L 03/29/20 04:27 36.8 C 81 12 102/57 L 95 - Problem List Review Problem List Initiated/Reviewed/Updated: Yes - My Orders Last 24 Hours: My Active Orders 03/28/20 21:00 Enoxaparin [Lovenox] 40 mg SUBCUT Q24H 03/29/20 09:24 Remove Hwang Catheter [Urinary Catheter Removal] [RC] PER UNIT ROUTINE 03/29/20 13:44 Magnesium Sulfate/Water [Magnesium Sulfate in Water Premix] 4 gm in 100 ml IV ONETIME - Assessment Assessment:: Impression: S/P fall with right intertochanteric fracture S/P R [id number] Thrombocytopenia, S/P Platelets Chronic Anemia Hypothyroid HTN HLD Plan: Follow H/H, keep HgB>8.0; ABs noted if needs transfusion PT/OT IS per protocol DVT prophylaxis Pain control
[2020-03-29] MEDS ORDERED: Magnesium Sulfate/Water 4 GM in Premix Bag 1 BAG IV ONE (14:15)
[2020-03-29] MEDS ORDERED: Magnesium Sulfate/Water 4 GM/100 ML BAG ONE (14:15)
[2020-03-29] MEDS: Magnesium Sulfate/Water 2 GM/50 ML BAG IV SCH ×2 (14:21→16:11)
[2020-03-29] MEDS: Enoxaparin 40 MG/0.4 ML Syringe SUBCUT SCH (20:35)
--- NOTE | 2020-03-29 22:01 | PCM48HPAN ---
Post Anesthesia Note - EVALUATION WITHIN 48HRS OF ANESTHETIC Vital Signs in Normal Range: No (hypotension noted by care team - holding BP meds) Patient Participated in Evaluation: No Respiratory Function Stable: No (patient having SpO2 < 90% without supplemental O2) Airway Patent: Yes Cardiovascular Function Stable: Yes (see NIBP vital signs for hypotension) Hydration Status Stable: Yes Pain Control Satisfactory: Yes Nausea and Vomiting Control Satisfactory: Yes Mental Status Recovered: Yes Vital Signs: Last Vital Signs Temp 37.1 C 03/29/20 17:17 Pulse 81 03/29/20 17:22 Resp 18 03/29/20 17:17 BP 92/48 L 03/29/20 17:25 Pulse Ox 88 L 03/29/20 17:22
[2020-03-30] MEDS: Levothyroxine 112 MCG Tab PO SCH (07:41)
[2020-03-30] MEDS: Pantoprazole 40 MG Tab.CR PO SCH (08:11)
[2020-03-30] MEDS: Sertraline 25 MG Tab PO SCH (08:11)
[2020-03-30] MEDS: Rifaximin 550 MG Tab PO SCH ×2 (08:11→21:02)
[2020-03-30] MEDS: Spironolactone 25 MG Tab PO SCH (08:12)
[2020-03-30] MEDS: Ursodiol 300 MG Cap PO SCH ×2 (08:14→21:02)
[2020-03-30] MEDS: Acetaminophen/HYDROcodone 325-5 MG Tab PO PRN (13:18)
[2020-03-30] MEDS ORDERED: Sodium Chloride 0.9% 250 ML IV SCH (16:45)
--- NOTE | 2020-03-30 17:11 | PCM.PN ---
- General Info Date of Service: 03/30/20 Functional Status: Reports: Pain Controlled, Tolerating Diet, Ambulating, Urinating - Review of Systems General: Reports: Weakness HEENT: Reports: No Symptoms Pulmonary: Reports: No Symptoms Cardiovascular: Reports: No Symptoms Gastrointestinal: Reports: No Symptoms Genitourinary: Reports: No Symptoms Musculoskeletal: Reports: No Symptoms Skin: Reports: No Symptoms Neurological: Reports: No Symptoms Psychiatric: Reports: No Symptoms - Patient Data Vitals - Most Recent: Last Vital Signs Temp 36.5 C 03/30/20 16:12 Pulse 81 03/30/20 16:09 Resp 14 03/30/20 16:09 BP 86/37 L 03/30/20 16:16 Pulse Ox 95 03/30/20 16:09 Weight - Most Recent: 72.212 kg I&O - Last 24 Hours: Intake & Output 03/30/20 03/30/20 03/30/20 06:59 14:59 22:59 Intake Total 800 200 0 Output Total 400 Balance 400 200 0 Lab Results Last 24 Hours: Laboratory Results - last 24 hr 03/27/20 03/28/20 03/30/20 Range/Units 08:10 05:20 11:20 WBC 6.67 (3.98-10.04) K/mm3 RBC 2.28 L (3.98-5.22) M/mm3 Hgb 7.6 L (11.2-15.7) gm/dl Hct 23.7 L (34.1-44.9) % MCV 103.9 H (79.4-94.8) fl MCH 33.3 H (25.6-32.2) pg MCHC 32.1 L (32.2-35.5) g/dl RDW Std Deviation 61.9 H (36.4-46.3) fL Plt Count 94 L (182-369) K/mm3 MPV 11.1 (9.4-12.3) fl Neut % (Auto) 59.8 (34.0-71.1) % Lymph % (Auto) 16.9 L (19.3-51.7) % Lipscomb % (Auto) 19.3 H (4.7-12.5) % Eos % (Auto) 3.3 (0.7-5.8) Baso % (Auto) 0.4 (0.1-1.2) % Neut # (Auto) 3.98 (1.56-6.13) K/mm3 Lymph # (Auto) 1.13 L (1.18-3.74) K/mm3 Lipscomb # (Auto) 1.29 H (0.24-0.36) K/mm3 Eos # (Auto) 0.22 (0.04-0.36) K/mm3 Baso # (Auto) 0.03 (0.01-0.08) K/mm3 Manual Slide Review Abnormal smear Sodium (136-145) mEq/L Potassium (3.5-5.1) mEq/L Chloride (98-107) mEq/L Carbon Dioxide (21-32) mEq/L Anion Gap (5-15) BUN (7-18) mg/dL Creatinine (0.55-1.02) mg/dL Est Cr Clr Drug Dosing mL/min Estimated GFR (MDRD) (>60) mL/min BUN/Creatinine Ratio (14-18) Glucose (83-115) mg/dL Calcium (8.5-10.1) mg/dL Magnesium (1.8-2.4) mg/dl Ferritin (8-252) ng/ml NT-Pro-B Natriuret Pep (0-125) pg/mL Blood Type O NEGATIVE Gel Antibody Screen Positive Crossmatch See Detail See Detail 03/30/20 03/30/20 03/30/20 Range/Units 11:20 11:20 11:20 WBC (3.98-10.04) K/mm3 RBC (3.98-5.22) M/mm3 Hgb (11.2-15.7) gm/dl Hct (34.1-44.9) % MCV (79.4-94.8) fl MCH (25.6-32.2) pg MCHC (32.2-35.5) g/dl RDW Std Deviation (36.4-46.3) fL Plt Count (182-369) K/mm3 MPV (9.4-12.3) fl Neut % (Auto) (34.0-71.1) % Lymph % (Auto) (19.3-51.7) % Lipscomb % (Auto) (4.7-12.5) % Eos % (Auto) (0.7-5.8) Baso % (Auto) (0.1-1.2) % Neut # (Auto) (1.56-6.13) K/mm3 Lymph # (Auto) (1.18-3.74) K/mm3 Lipscomb # (Auto) (0.24-0.36) K/mm3 Eos # (Auto) (0.04-0.36) K/mm3 Baso # (Auto) (0.01-0.08) K/mm3 Manual Slide Review Sodium 135 L (136-145) mEq/L Potassium 4.1 (3.5-5.1) mEq/L Chloride 103 (98-107) mEq/L Carbon Dioxide 29 (21-32) mEq/L Anion Gap 7.1 (5-15) BUN 24 H (7-18) mg/dL Creatinine 0.8 (0.55-1.02) mg/dL Est Cr Clr Drug Dosing 62.48 mL/min Estimated GFR (MDRD) > 60 (>60) mL/min BUN/Creatinine Ratio 30.0 H (14-18) Glucose 117 H (83-115) mg/dL Calcium 8.0 L (8.5-10.1) mg/dL Magnesium 2.1 (1.8-2.4) mg/dl Ferritin 518 H (8-252) ng/ml NT-Pro-B Natriuret Pep 184 H (0-125) pg/mL Blood Type Gel Antibody Screen Crossmatch Med Orders - Current: Current Medications Hydrocodone Bitart/Acetaminophen ([place] 325-5 Mg) 1 tab PO Q6H PRN PRN Reason: Pain Last Admin: 03/30/20 13:18 Dose: 1 tab Documented by: Cyclobenzaprine HCl (Flexeril) 5 mg PO BID PRN PRN Reason: Muscle Spasm Enoxaparin Sodium (Lovenox) 40 mg SUBCUT Q24H CARLOS Last Admin: 03/29/20 20:35 Dose: 40 mg Documented by: Hydromorphone HCl (Dilaudid) 0.5 mg IVPUSH Q4H PRN PRN Reason: Pain Last Admin: 03/26/20 22:54 Dose: 0.5 mg Documented by: Sodium Chloride (Normal Saline) 250 mls @ 75 mls/hr IV ASDIRECTED COUNT INCLUDES THE [facility] Levothyroxine Sodium (Levothyroxine) 112 mcg PO ACBREAKFAST COUNT INCLUDES THE [facility] Last Admin: 03/30/20 07:41 Dose: 112 mcg Documented by: Nadolol (Naldol) 20 mg PO DAILY COUNT INCLUDES THE [facility] Last Admin: 03/30/20 08:13 Dose: 20 mg Documented by: Pantoprazole Sodium (Protonix) 40 mg PO DAILY COUNT INCLUDES THE [facility] Last Admin: 03/30/20 08:11 Dose: 40 mg Documented by: Rifaximin (Xifaxan) 550 mg PO BID COUNT INCLUDES THE [facility] Last Admin: 03/30/20 08:11 Dose: 550 mg Documented by: Sertraline HCl (Zoloft) 25 mg PO DAILY COUNT INCLUDES THE [facility] Last Admin: 03/30/20 08:11 Dose: 25 mg Documented by: Sodium Chloride (Saline Flush) 10 ml FLUSH ASDIRECTED PRN PRN Reason: Keep Vein Open Last Admin: 03/26/20 18:19 Dose: 10 ml Documented by: Spironolactone (Aldactone) 12.5 mg PO DAILY COUNT INCLUDES THE [facility] Last Admin: 03/30/20 08:12 Dose: 12.5 mg Documented by: Ursodiol (Actigal) 300 mg PO BID COUNT INCLUDES THE [facility] Last Admin: 03/30/20 08:14 Dose: 300 mg Documented by: Discontinued Medications Bupivacaine HCl (Sensorcaine-Mpf 0.25%) Confirm Administered Dose 20 ml .ROUTE .STK-MED ONE Stop: 03/28/20 10:45 Last Admin: 03/28/20 13:55 Dose: 20 ml Documented by: Cefazolin Sodium (Ancef) Confirm Administered Dose 2 gm .ROUTE .STK-MED ONE Stop: 03/28/20 10:53 Cefazolin Sodium (Ancef) Confirm Administered Dose 2 gm .ROUTE .STK-MED ONE Stop: 03/28/20 12:21 Enoxaparin Sodium (Lovenox) 40 mg SUBCUT Q24H COUNT INCLUDES THE [facility] Last Admin: 03/27/20 14:18 Dose: Not Given Documented by: Fentanyl (Sublimaze) Confirm Administered Dose 250 mcg .ROUTE .STK-MED ONE Stop: 03/28/20 10:53 Fentanyl (Sublimaze) 50 mcg IVPUSH Q5M PRN PRN Reason: Pain Stop: 03/28/20 18:00 Hydromorphone HCl (Dilaudid) 0.5 mg IVPUSH ONETIME ONE Stop: 03/26/20 18:10 Last Admin: 03/26/20 18:15 Dose: 0.5 mg Documented by: Magnesium Sulfate (Magnesium Sulfate In Water Premix) 2 gm in 50 mls @ 25 mls/hr IV ONETIME ONE Stop: 03/27/20 12:24 Last Admin: 03/27/20 10:33 Dose: 25 mls/hr Documented by: Lactated Ringer's (Ringers, Lactated) 1,000 mls @ 50 mls/hr IV ASDIRECTED COUNT INCLUDES THE [facility] Last Admin: 03/28/20 16:56 Dose: 50 mls/hr Documented by: Sodium Chloride (Normal Saline) 250 mls @ 100 mls/hr IV ASDIRECTED COUNT INCLUDES THE [facility] Last Admin: 03/28/20 09:28 Dose: 100 mls/hr Documented by: Lidocaine HCl (Xylocaine-Mpf 1%) Confirm Administered Dose 4 mls @ as directed .ROUTE .STK-MED ONE Stop: 03/28/20 10:53 Lactated Ringer's (Ringers, Lactated) Confirm Administered Dose 1,000 mls @ as directed .ROUTE .STK-MED ONE Stop: 03/28/20 10:53 Lactated Ringer's (Ringers, Lactated) Confirm Administered Dose 1,000 mls @ as directed .ROUTE .STK-MED ONE Stop: 03/28/20 13:14 Lactated Ringer's (Ringers, Lactated) Confirm Administered Dose 1,000 mls @ as directed .ROUTE .STK-MED ONE Stop: 03/28/20 13:14 Cefazolin Sodium/Dextrose 2 gm (/ Premix) 50 mls @ 100 mls/hr IV Q8H COUNT INCLUDES THE [facility] Stop: 03/29/20 07:29 Last Admin: 03/29/20 06:27 Dose: 100 mls/hr Documented by: Magnesium Sulfate (Magnesium Sulfate In Water Premix) 4 gm in 100 mls @ 25 mls/hr IV ONETIME ONE Stop: 03/29/20 17:43 Last Admin: 03/29/20 15:15 Dose: Not Given Documented by: Magnesium Sulfate 4 gm/ Premix 100 mls @ 25 mls/hr IV ONETIME ONE Stop: 03/29/20 18:14 Last Admin: 03/29/20 15:15 Dose: Not Given Documented by: Magnesium Sulfate (Magnesium Sulfate In Water Premix) 2 gm in 50 mls @ 25 mls/hr IV Q2H CARLOS Stop: 03/29/20 18:29 Last Admin: 03/29/20 16:11 Dose: 25 mls/hr Documented by: Magnesium Sulfate (Magnesium Sulfate In Water Premix) Confirm Administered Dose 4 gm in 100 mls @ as directed .ROUTE .STK-MED ONE Stop: 03/29/20 14:16 Last Admin: 03/29/20 15:14 Dose: Not Given Documented by: Ketamine HCl (Ketalar) Confirm Administered Dose 500 mg .ROUTE .STK-MED ONE Stop: 03/28/20 10:54 Magnesium Hydroxide (Milk Of Magnesia) 30 ml PO ONETIME ONE Stop: 03/29/20 08:01 Last Admin: 03/29/20 09:21 Dose: 30 ml Documented by: Miscellaneous Medication (Phenylephrine 1 Mg/10 Ml-Ns) Confirm Administered Dose 1 mg .ROUTE .STK-MED ONE Stop: 03/28/20 12:19 Ondansetron HCl (Zofran) 4 mg IVPUSH ONETIME ONE Stop: 03/26/20 18:11 Last Admin: 03/26/20 18:15 Dose: 4 mg Documented by: Ondansetron HCl (Zofran) Confirm Administered Dose 4 mg .ROUTE .STK-MED ONE Stop: 03/28/20 10:53 Propofol (Diprivan 20 Ml) Confirm Administered Dose 400 mg .ROUTE .STK-MED ONE Stop: 03/28/20 10:53 Propofol (Diprivan 20 Ml) Confirm Administered Dose 200 mg .ROUTE .STK-MED ONE Stop: 03/28/20 10:54 - Exam Quality Assessment: Supplemental Oxygen General: Alert, Oriented, Cooperative, No Acute Distress HEENT: Pupils Equal, Pupils Reactive, EOMI Neck: Trachea Midline, No JVD Lungs: Normal Respiratory Effort Cardiovascular: Regular Rate, Regular Rhythm GI/Abdominal Exam: Normal Bowel Sounds, Soft, Non-Tender, No Distention (Female) Exam: Deferred Back Exam: Normal Inspection Extremities: Normal Inspection, Normal Capillary Refill Skin: Warm Neurological: No New Focal Deficit, Normal Speech Psy/Mental Status: Alert, Normal Affect, Normal Mood Sepsis Event Note - Evaluation Sepsis Screening Result: No Definite Risk - Focused Exam Vital Signs: Vital Signs Temp Pulse Resp BP Pulse Ox Pulse Ox 03/30/20 16:16 86/37 L 03/30/20 16:12 36.5 C 03/30/20 16:09 36.6 C 81 14 86/36 L 95 03/30/20 15:58 95 03/30/20 11:44 36.6 C 74 14 93/45 L 95 03/30/20 08:32 98 03/30/20 08:17 69 98 03/30/20 08:13 69 121/82 03/30/20 08:01 36.4 C 73 18 121/82 96 03/30/20 05:41 36.8 C 66 14 114/77 96 - Problem List Review Problem List Initiated/Reviewed/Updated: Yes - My Orders Last 24 Hours: My Active Orders 03/30/20 14:14 RED BLOOD CELLS LP [BBK] Routine Transfuse Red Blood Cells [COMM] Routine 03/30/20 16:45 Sodium Chloride 0.9% [Normal Saline] 250 ml IV ASDIRECTED - Assessment Assessment:: Impression: POD 2 S/P fall with right intertochanteric fracture S/P R [id number] Thrombocytopenia, S/P Platelets Chronic Anemia, work up ordered. Hypothyroid HTN HLD Plan: Follow H/H, keep HgB>8.0; ABs noted if needs transfusion PT/OT IS per protocol DVT prophylaxis Pain control
[2020-03-30] MEDS: Enoxaparin 40 MG/0.4 ML Syringe SUBCUT SCH (21:02)
[2020-03-31] MEDS: Levothyroxine 112 MCG Tab PO SCH (06:26)
[2020-03-31] MEDS: Acetaminophen/HYDROcodone 325-5 MG Tab PO PRN ×3 (06:53→22:30)
[2020-03-31] MEDS ORDERED: Lactated Ringers 500 ML IV ONE (09:41)
[2020-03-31] MEDS ORDERED: Lactated Ringers 1,000 ML ONE (09:45)
[2020-03-31] MEDS: Sertraline 25 MG Tab PO SCH (09:48)
[2020-03-31] MEDS: Rifaximin 550 MG Tab PO SCH ×2 (09:48→21:37)
[2020-03-31] MEDS: Pantoprazole 40 MG Tab.CR PO SCH (09:48)
[2020-03-31] MEDS: Ursodiol 300 MG Cap PO SCH ×2 (09:56→21:41)
--- NOTE | 2020-03-31 10:43 | CR ---
PROCEDURE INFORMATION: Exam: XR Right Femur Exam date and time: 03/28/2020 4:00 PM Age: 74 years old Clinical indication: Device placement; Other: Gamma nail; Patient HX: Post-op xrays TECHNIQUE: Imaging protocol: XR Right femur. Views: 2 views. COMPARISON: No relevant prior studies available. FINDINGS: Bones/joints: Intertrochanteric fracture of the right hip is been fixed with an intramedullary keily and pin. Fracture fragments are in near anatomic orientation. Lesser trochanter reflects a detached fragment. Soft tissues: Moderate lateral soft tissue swelling. Other findings: Expected postoperative changes in the area are seen. IMPRESSION: Postoperative exam as described. Thank you for allowing us to participate in the care of your patient. Dictated and Authenticated by: Oscar Warner MD 03/28/2020 6:03 PM Central Time ([place] & [place]) JEANIE
--- NOTE | 2020-03-31 13:33 | PCM.PN ---
<Raphael,DeAnn M - Last Filed: 03/31/20 13:37> - General Info Date of Service: 03/31/20 Admission Dx/Problem (Free Text): Admission Diagnosis/Problem Admission Diagnosis/Problem Hip fracture, intertrochanteric Subjective Update: Patient sitting up in chair. Patient reports that she is having some pain to her right hip but is much decreased from prior to surgery. Otherwise feeling well. Functional Status: Reports: Pain Controlled, Tolerating Diet, Ambulating (With therapies), Urinating, Incentive Spirometry - Review of Systems General: Reports: No Symptoms HEENT: Reports: No Symptoms Pulmonary: Reports: No Symptoms Cardiovascular: Reports: No Symptoms Gastrointestinal: Reports: No Symptoms Genitourinary: Reports: No Symptoms Musculoskeletal: Reports: No Symptoms Skin: Reports: No Symptoms Neurological: Reports: No Symptoms Psychiatric: Reports: No Symptoms - Patient Data Vitals - Most Recent: Last Vital Signs Temp 97.3 F 03/31/20 09:24 Pulse 66 03/31/20 09:24 Resp 20 03/31/20 09:24 BP 80/44 L 03/31/20 09:27 Pulse Ox 99 03/31/20 09:24 Weight - Most Recent: 73.164 kg I&O - Last 24 Hours: Intake & Output 03/30/20 03/31/20 03/31/20 22:59 06:59 14:59 Intake Total 1080 650 120 Output Total 375 Balance 1080 275 120 Lab Results Last 24 Hours: Laboratory Results - last 24 hr 03/27/20 03/28/20 03/30/20 Range/Units 08:10 05:20 11:20 WBC (3.98-10.04) K/mm3 RBC (3.98-5.22) M/mm3 Hgb (11.2-15.7) gm/dl Hct (34.1-44.9) % MCV (79.4-94.8) fl MCH (25.6-32.2) pg MCHC (32.2-35.5) g/dl RDW Std Deviation (36.4-46.3) fL Plt Count (182-369) K/mm3 MPV (9.4-12.3) fl Neut % (Auto) (34.0-71.1) % Lymph % (Auto) (19.3-51.7) % [place] % (Auto) (4.7-12.5) % Eos % (Auto) (0.7-5.8) Baso % (Auto) (0.1-1.2) % Neut # (Auto) (1.56-6.13) K/mm3 Lymph # (Auto) (1.18-3.74) K/mm3 [place] # (Auto) (0.24-0.36) K/mm3 Eos # (Auto) (0.04-0.36) K/mm3 Baso # (Auto) (0.01-0.08) K/mm3 Manual Slide Review Abnormal smear Percent Retic (0.50-1.70) % Sodium (136-145) mEq/L Potassium (3.5-5.1) mEq/L Chloride (98-107) mEq/L Carbon Dioxide (21-32) mEq/L Anion Gap (5-15) BUN (7-18) mg/dL Creatinine (0.55-1.02) mg/dL Est Cr Clr Drug Dosing mL/min Estimated GFR (MDRD) (>60) mL/min BUN/Creatinine Ratio (14-18) Glucose (83-115) mg/dL Calcium (8.5-10.1) mg/dL Total Bilirubin (0.2-1.0) mg/dL AST (15-37) U/L ALT (14-59) U/L Alkaline Phosphatase (46-116) U/L Total Protein (6.4-8.2) g/dl Albumin (3.4-5.0) g/dl Globulin gm/dL Albumin/Globulin Ratio (1-2) Vitamin B12 (193-986) pg/ml Folate (8.6-58.9) ng/mL TSH 3rd Generation (0.358-3.74) uIU/mL Blood Type O NEGATIVE Gel Antibody Screen Positive Crossmatch See Detail See Detail 03/31/20 03/31/20 03/31/20 Range/Units 05:49 05:49 05:49 WBC (3.98-10.04) K/mm3 RBC (3.98-5.22) M/mm3 Hgb (11.2-15.7) gm/dl Hct (34.1-44.9) % MCV (79.4-94.8) fl MCH (25.6-32.2) pg MCHC (32.2-35.5) g/dl RDW Std Deviation (36.4-46.3) fL Plt Count (182-369) K/mm3 MPV (9.4-12.3) fl Neut % (Auto) (34.0-71.1) % Lymph % (Auto) (19.3-51.7) % Hend[place] % (Auto) (4.7-12.5) % Eos % (Auto) (0.7-5.8) Baso % (Auto) (0.1-1.2) % Neut # (Auto) (1.56-6.13) K/mm3 Lymph # (Auto) (1.18-3.74) K/mm3 [place] # (Auto) (0.24-0.36) K/mm3 Eos # (Auto) (0.04-0.36) K/mm3 Baso # (Auto) (0.01-0.08) K/mm3 Manual Slide Review Percent Retic 5.56 H (0.50-1.70) % Sodium (136-145) mEq/L Potassium (3.5-5.1) mEq/L Chloride (98-107) mEq/L Carbon Dioxide (21-32) mEq/L Anion Gap (5-15) BUN (7-18) mg/dL Creatinine (0.55-1.02) mg/dL Est Cr Clr Drug Dosing mL/min Estimated GFR (MDRD) (>60) mL/min BUN/Creatinine Ratio (14-18) Glucose (83-115) mg/dL Calcium (8.5-10.1) mg/dL Total Bilirubin (0.2-1.0) mg/dL AST (15-37) U/L ALT (14-59) U/L Alkaline Phosphatase (46-116) U/L Total Protein (6.4-8.2) g/dl Albumin (3.4-5.0) g/dl Globulin gm/dL Albumin/Globulin Ratio (1-2) Vitamin B12 1395 H (193-986) pg/ml Folate 9.5 (8.6-58.9) ng/mL TSH 3rd Generation 0.602 (0.358-3.74) uIU/mL Blood Type Gel Antibody Screen Crossmatch 03/31/20 03/31/20 Range/Units 05:49 05:49 WBC 5.03 (3.98-10.04) K/mm3 RBC 2.14 L (3.98-5.22) M/mm3 Hgb 7.1 L* (11.2-15.7) gm/dl Hct 22.3 L (34.1-44.9) % MCV 104.2 H (79.4-94.8) fl MCH 33.2 H (25.6-32.2) pg MCHC 31.8 L (32.2-35.5) g/dl RDW Std Deviation 60.3 H (36.4-46.3) fL Plt Count 69 L (182-369) K/mm3 MPV 11.6 (9.4-12.3) fl Neut % (Auto) 54.2 (34.0-71.1) % Lymph % (Auto) 21.1 (19.3-51.7) % [place] % (Auto) 19.1 H (4.7-12.5) % Eos % (Auto) 4.4 (0.7-5.8) Baso % (Auto) 0.4 (0.1-1.2) % Neut # (Auto) 2.73 (1.56-6.13) K/mm3 Lymph # (Auto) 1.06 L (1.18-3.74) K/mm3 [place] # (Auto) 0.96 H (0.24-0.36) K/mm3 Eos # (Auto) 0.22 (0.04-0.36) K/mm3 Baso # (Auto) 0.02 (0.01-0.08) K/mm3 Manual Slide Review Abnormal smear Percent Retic (0.50-1.70) % Sodium 138 (136-145) mEq/L Potassium 4.1 (3.5-5.1) mEq/L Chloride 105 (98-107) mEq/L Carbon Dioxide 27 (21-32) mEq/L Anion Gap 10.1 (5-15) BUN 18 (7-18) mg/dL Creatinine 0.7 (0.55-1.02) mg/dL Est Cr Clr Drug Dosing 71.41 mL/min Estimated GFR (MDRD) > 60 (>60) mL/min BUN/Creatinine Ratio 25.7 H (14-18) Glucose 94 (83-115) mg/dL Calcium 7.7 L (8.5-10.1) mg/dL Total Bilirubin 2.5 H (0.2-1.0) mg/dL AST 54 H (15-37) U/L ALT 20 (14-59) U/L Alkaline Phosphatase 150 H (46-116) U/L Total Protein 4.4 L (6.4-8.2) g/dl Albumin 1.8 L (3.4-5.0) g/dl Globulin 2.6 gm/dL Albumin/Globulin Ratio 0.7 L (1-2) Vitamin B12 (193-986) pg/ml Folate (8.6-58.9) ng/mL TSH 3rd Generation (0.358-3.74) uIU/mL Blood Type Gel Antibody Screen Crossmatch Med Orders - Current: Current Medications Hydrocodone Bitart/Acetaminophen ([place] 325-5 Mg) 1 tab PO Q6H PRN PRN Reason: Pain Last Admin: 03/31/20 06:53 Dose: 1 tab Documented by: Cyclobenzaprine HCl (Flexeril) 5 mg PO BID PRN PRN Reason: Muscle Spasm Hydromorphone HCl (Dilaudid) 0.5 mg IVPUSH Q4H PRN PRN Reason: Pain Last Admin: 03/26/20 22:54 Dose: 0.5 mg Documented by: Sodium Chloride (Normal Saline) 250 mls @ 75 mls/hr IV ASDIRECTED [facility] Last Admin: 03/31/20 12:44 Dose: 75 mls/hr Documented by: Levothyroxine Sodium (Levothyroxine) 112 mcg PO ACBREAKFAST [facility] Last Admin: 03/31/20 06:26 Dose: 112 mcg Documented by: Nadolol (Naldol) 20 mg PO DAILY [facility] Last Admin: 03/30/20 08:13 Dose: 20 mg Documented by: Pantoprazole Sodium (Protonix) 40 mg PO DAILY [facility] Last Admin: 03/31/20 09:48 Dose: 40 mg Documented by: Rifaximin (Xifaxan) 550 mg PO BID [facility] Last Admin: 03/31/20 09:48 Dose: 550 mg Documented by: Rivaroxaban (Xarelto) 10 mg PO Q24H [facility] Sertraline HCl (Zoloft) 25 mg PO DAILY [facility] Last Admin: 03/31/20 09:48 Dose: 25 mg Documented by: Sodium Chloride (Saline Flush) 10 ml FLUSH ASDIRECTED PRN PRN Reason: Keep Vein Open Last Admin: 03/26/20 18:19 Dose: 10 ml Documented by: Spironolactone (Aldactone) 12.5 mg PO DAILY [facility] Last Admin: 03/30/20 08:12 Dose: 12.5 mg Documented by: Ursodiol (Actigal) 300 mg PO BID [facility] Last Admin: 03/31/20 09:56 Dose: 300 mg Documented by: Discontinued Medications Bupivacaine HCl (Sensorcaine-Mpf 0.25%) Confirm Administered Dose 20 ml .ROUTE .STK-MED ONE Stop: 03/28/20 10:45 Last Admin: 03/28/20 13:55 Dose: 20 ml Documented by: Cefazolin Sodium (Ancef) Confirm Administered Dose 2 gm .ROUTE .STK-MED ONE Stop: 03/28/20 10:53 Cefazolin Sodium (Ancef) Confirm Administered Dose 2 gm .ROUTE .STK-MED ONE Stop: 03/28/20 12:21 Enoxaparin Sodium (Lovenox) 40 mg SUBCUT Q24H [facility] Last Admin: 03/27/20 14:18 Dose: Not Given Documented by: Enoxaparin Sodium (Lovenox) 40 mg SUBCUT Q24H [facility] Last Admin: 03/30/20 21:02 Dose: 40 mg Documented by: Fentanyl (Sublimaze) Confirm Administered Dose 250 mcg .ROUTE .STK-MED ONE Stop: 03/28/20 10:53 Fentanyl (Sublimaze) 50 mcg IVPUSH Q5M PRN PRN Reason: Pain Stop: 03/28/20 18:00 Hydromorphone HCl (Dilaudid) 0.5 mg IVPUSH ONETIME ONE Stop: 03/26/20 18:10 Last Admin: 03/26/20 18:15 Dose: 0.5 mg Documented by: Magnesium Sulfate (Magnesium Sulfate In Water Premix) 2 gm in 50 mls @ 25 mls/hr IV ONETIME ONE Stop: 03/27/20 12:24 Last Admin: 03/27/20 10:33 Dose: 25 mls/hr Documented by: Lactated Ringer's (Ringers, Lactated) 1,000 mls @ 50 mls/hr IV ASDIRECTED [facility] Last Admin: 03/28/20 16:56 Dose: 50 mls/hr Documented by: Sodium Chloride (Normal Saline) 250 mls @ 100 mls/hr IV ASDIRECTED [facility] Last Admin: 03/28/20 09:28 Dose: 100 mls/hr Documented by: Lidocaine HCl (Xylocaine-Mpf 1%) Confirm Administered Dose 4 mls @ as directed .ROUTE .STK-MED ONE Stop: 03/28/20 10:53 Lactated Ringer's (Ringers, Lactated) Confirm Administered Dose 1,000 mls @ as directed .ROUTE .STK-MED ONE Stop: 03/28/20 10:53 Lactated Ringer's (Ringers, Lactated) Confirm Administered Dose 1,000 mls @ as directed .ROUTE .STK-MED ONE Stop: 03/28/20 13:14 Lactated Ringer's (Ringers, Lactated) Confirm Administered Dose 1,000 mls @ as directed .ROUTE .STK-MED ONE Stop: 03/28/20 13:14 Cefazolin Sodium/Dextrose 2 gm (/ Premix) 50 mls @ 100 mls/hr IV Q8H [facility] Stop: 03/29/20 07:29 Last Admin: 03/29/20 06:27 Dose: 100 mls/hr Documented by: Magnesium Sulfate (Magnesium Sulfate In Water Premix) 4 gm in 100 mls @ 25 mls/hr IV ONETIME ONE Stop: 03/29/20 17:43 Last Admin: 03/29/20 15:15 Dose: Not Given Documented by: Magnesium Sulfate 4 gm/ Premix 100 mls @ 25 mls/hr IV ONETIME ONE Stop: 03/29/20 18:14 Last Admin: 03/29/20 15:15 Dose: Not Given Documented by: Magnesium Sulfate (Magnesium Sulfate In Water Premix) 2 gm in 50 mls @ 25 mls/hr IV Q2H [facility] Stop: 03/29/20 18:29 Last Admin: 03/29/20 16:11 Dose: 25 mls/hr Documented by: Magnesium Sulfate (Magnesium Sulfate In Water Premix) Confirm Administered Dose 4 gm in 100 mls @ as directed .ROUTE .STK-MED ONE Stop: 03/29/20 14:16 Last Admin: 03/29/20 15:14 Dose: Not Given Documented by: Lactated Ringer's (Ringers, Lactated) 500 mls @ 500 mls/hr IV .BOLUS ONE Stop: 03/31/20 10:40 Last Admin: 03/31/20 09:49 Dose: 500 mls/hr Documented by: Lactated Ringer's (Ringers, Lactated) Confirm Administered Dose 1,000 mls @ as directed .ROUTE .STK-MED ONE Stop: 03/31/20 09:46 Last Admin: 03/31/20 09:57 Dose: Not Given Documented by: Ketamine HCl (Ketalar) Confirm Administered Dose 500 mg .ROUTE .STK-MED ONE Stop: 03/28/20 10:54 Magnesium Hydroxide (Milk Of Magnesia) 30 ml PO ONETIME ONE Stop: 03/29/20 08:01 Last Admin: 03/29/20 09:21 Dose: 30 ml Documented by: Miscellaneous Medication (Phenylephrine 1 Mg/10 Ml-Ns) Confirm Administered Dose 1 mg .ROUTE .STK-MED ONE Stop: 03/28/20 12:19 Ondansetron HCl (Zofran) 4 mg IVPUSH ONETIME ONE Stop: 03/26/20 18:11 Last Admin: 03/26/20 18:15 Dose: 4 mg Documented by: Ondansetron HCl (Zofran) Confirm Administered Dose 4 mg .ROUTE .STK-MED ONE Stop: 03/28/20 10:53 Propofol (Diprivan 20 Ml) Confirm Administered Dose 400 mg .ROUTE .STK-MED ONE Stop: 03/28/20 10:53 Propofol (Diprivan 20 Ml) Confirm Administered Dose 200 mg .ROUTE .STK-MED ONE Stop: 03/28/20 10:54 - Exam Quality Assessment: Supplemental Oxygen (2 L per nasal cannula), DVT Prophylaxis (Lovenox) General: Alert, Oriented, Cooperative, No Acute Distress HEENT: Pupils Equal, Pupils Reactive, Mucous Membr. Moist/[place] Neck: Supple, Trachea Midline. No: Lymphadenopathy Lungs: Normal Respiratory Effort, Crackles (Left posterior lobe) Cardiovascular: Regular Rate, Regular Rhythm, No Murmurs GI/Abdominal Exam: Normal Bowel Sounds, Soft, Non-Tender, No Distention (Female) Exam: Deferred Back Exam: Normal Inspection, Full Range of Motion Extremities: Normal Inspection, Normal Range of Motion, No Pedal Edema, Normal Capillary Refill, Other (Dressing to right hip is intact) Peripheral Pulses: 2+: Radial (L), Radial (R), Dorsalis Pedis (L), Dorsalis Pedis (R) Skin: Warm, Dry Wound/Incisions: Dressing Dry and Intact (Right hip surgical site) Neurological: No New Focal Deficit Psy/Mental Status: Alert, Normal Affect, Normal Mood Sepsis Event Note - Evaluation Sepsis Screening Result: No Definite Risk - Focused Exam Vital Signs: Vital Signs Temp Pulse Resp BP BP Pulse Ox Pulse Ox 03/31/20 09:27 80/44 L 03/31/20 09:24 97.3 F 66 20 80/48 L 99 03/31/20 07:47 95 03/31/20 03:00 68 93 L - Problem List & Annotations (1) Abnormal LFTs (liver function tests) SNOMED Code(s): 174901116 Code(s): R94.5 - ABNORMAL RESULTS OF LIVER FUNCTION STUDIES Status: Acute Priority: High Current Visit: Yes (2) Hip fracture, intertrochanteric SNOMED Code(s): 947073067 Code(s): S72.143A - DISPLACED INTERTROCHANTERIC FRACTURE OF UNSP FEMUR, INIT Status: Acute Priority: High Current Visit: Yes Qualifiers: Encounter type: initial encounter Fracture type: closed Fracture alignment: displaced Laterality: right Qualified Code(s): S72.141A - Displaced intertrochanteric fracture of right femur, initial encounter for closed fracture (3) Fall SNOMED Code(s): 7711749, 333100883 Code(s): W19.XXXA - UNSPECIFIED FALL, INITIAL ENCOUNTER Status: Acute Priority: High Current Visit: Yes Qualifiers: Encounter type: initial encounter Qualified Code(s): W19.XXXA - Unspecified fall, initial encounter (4) Hypertension SNOMED Code(s): 81573899 Code(s): I10 - ESSENTIAL (PRIMARY) HYPERTENSION Status: Chronic Priority: High Current Visit: Yes Qualifiers: Hypertension type: unspecified Qualified Code(s): I10 - Essential (primary) hypertension - Problem List Review Problem List Initiated/Reviewed/Updated: Yes - Assessment Assessment:: Impression: POD 2 S/P fall with right intertochanteric fracture S/P R ЮЛИЯ Thrombocytopenia, S/P Platelets Chronic Anemia, work up ordered. Hypothyroid HTN HLD Plan: Follow H/H, keep HgB>8.0; ABs noted if needs transfusion PT/OT IS per protocol DVT prophylaxis Pain control 03/31/20 * Lab work reveals: Hemoglobin 7.1, reticulocyte count 5.56, BUN 24, creatinine 0.8, magnesium 2.1, B12 1395, * Is currently on on O2 at 2 L per nasal cannula * Is +1555 mL of intake, has had 315 mL of output. * Patient has been hypotensive 80s over 40s. Did complain of some dizziness when she transferred out of bed to the chair with physical therapy. * Nursing notes that patient is coughing when swallowing her food and drink with meals. * There are orders for patient to receive 2 units of packed red cells, however patient does have antibodies so we are awaiting units from [place]. - Plan Plan:: 03/31/20 * Transfused 2 units of PRBCs today * Discontinue Lovenox start Xarelto 10 mg daily * Speech therapy consult for a swallowing evaluation * Continue incentive spirometer every hour while awake * PT and OT to work with the patient * Dietitian to consult regarding caloric needs * support services tech for discharge planning * Continue to monitor vital signs * Recheck labs in the morning * Continue to titrate oxygen. * Will likely plan for discharge Tuesday or . <Noemi Taylor - Last Filed: 03/31/20 16:23> - Patient Data Vitals - Most Recent: Last Vital Signs Temp 36.3 C 03/31/20 09:24 Pulse 66 03/31/20 09:24 Resp 20 03/31/20 09:24 BP 80/44 L 03/31/20 09:27 Pulse Ox 99 03/31/20 14:38 I&O - Last 24 Hours: Intake & Output 03/31/20 03/31/20 03/31/20 06:59 14:59 22:59 Intake Total 650 120 Output Total 375 Balance 275 120 Lab Results Last 24 Hours: Laboratory Results - last 24 hr 03/27/20 03/28/20 03/31/20 Range/Units 08:10 05:20 05:49 WBC (3.98-10.04) K/mm3 RBC (3.98-5.22) M/mm3 Hgb (11.2-15.7) gm/dl Hct (34.1-44.9) % MCV (79.4-94.8) fl MCH (25.6-32.2) pg MCHC (32.2-35.5) g/dl RDW Std Deviation (36.4-46.3) fL Plt Count (182-369) K/mm3 MPV (9.4-12.3) fl Neut % (Auto) (34.0-71.1) % Lymph % (Auto) (19.3-51.7) % [place] % (Auto) (4.7-12.5) % Eos % (Auto) (0.7-5.8) Baso % (Auto) (0.1-1.2) % Neut # (Auto) (1.56-6.13) K/mm3 Lymph # (Auto) (1.18-3.74) K/mm3 [place] # (Auto) (0.24-0.36) K/mm3 Eos # (Auto) (0.04-0.36) K/mm3 Baso # (Auto) (0.01-0.08) K/mm3 Manual Slide Review Percent Retic 5.56 H (0.50-1.70) % Sodium (136-145) mEq/L Potassium (3.5-5.1) mEq/L Chloride (98-107) mEq/L Carbon Dioxide (21-32) mEq/L Anion Gap (5-15) BUN (7-18) mg/dL Creatinine (0.55-1.02) mg/dL Est Cr Clr Drug Dosing mL/min Estimated GFR (MDRD) (>60) mL/min BUN/Creatinine Ratio (14-18) Glucose (83-115) mg/dL Calcium (8.5-10.1) mg/dL Total Bilirubin (0.2-1.0) mg/dL AST (15-37) U/L ALT (14-59) U/L Alkaline Phosphatase (46-116) U/L Total Protein (6.4-8.2) g/dl Albumin (3.4-5.0) g/dl Globulin gm/dL Albumin/Globulin Ratio (1-2) Vitamin B12 (193-986) pg/ml Folate (8.6-58.9) ng/mL TSH 3rd Generation (0.358-3.74) uIU/mL Blood Type O NEGATIVE Gel Antibody Screen Positive Antibody Identification No Antibodies Identified Crossmatch See Detail See Detail 03/31/20 03/31/20 03/31/20 Range/Units 05:49 05:49 05:49 WBC 5.03 (3.98-10.04) K/mm3 RBC 2.14 L (3.98-5.22) M/mm3 Hgb 7.1 L* (11.2-15.7) gm/dl Hct 22.3 L (34.1-44.9) % MCV 104.2 H (79.4-94.8) fl MCH 33.2 H (25.6-32.2) pg MCHC 31.8 L (32.2-35.5) g/dl RDW Std Deviation 60.3 H (36.4-46.3) fL Plt Count 69 L (182-369) K/mm3 MPV 11.6 (9.4-12.3) fl Neut % (Auto) 54.2 (34.0-71.1) % Lymph % (Auto) 21.1 (19.3-51.7) % [place] % (Auto) 19.1 H (4.7-12.5) % Eos % (Auto) 4.4 (0.7-5.8) Baso % (Auto) 0.4 (0.1-1.2) % Neut # (Auto) 2.73 (1.56-6.13) K/mm3 Lymph # (Auto) 1.06 L (1.18-3.74) K/mm3 [place] # (Auto) 0.96 H (0.24-0.36) K/mm3 Eos # (Auto) 0.22 (0.04-0.36) K/mm3 Baso # (Auto) 0.02 (0.01-0.08) K/mm3 Manual Slide Review Abnormal smear Percent Retic (0.50-1.70) % Sodium (136-145) mEq/L Potassium (3.5-5.1) mEq/L Chloride (98-107) mEq/L Carbon Dioxide (21-32) mEq/L Anion Gap (5-15) BUN (7-18) mg/dL Creatinine (0.55-1.02) mg/dL Est Cr Clr Drug Dosing mL/min Estimated GFR (MDRD) (>60) mL/min BUN/Creatinine Ratio (14-18) Glucose (83-115) mg/dL Calcium (8.5-10.1) mg/dL Total Bilirubin (0.2-1.0) mg/dL AST (15-37) U/L ALT (14-59) U/L Alkaline Phosphatase (46-116) U/L Total Protein (6.4-8.2) g/dl Albumin (3.4-5.0) g/dl Globulin gm/dL Albumin/Globulin Ratio (1-2) Vitamin B12 1395 H (193-986) pg/ml Folate 9.5 (8.6-58.9) ng/mL TSH 3rd Generation 0.602 (0.358-3.74) uIU/mL Blood Type Gel Antibody Screen Antibody Identification Crossmatch 03/31/20 Range/Units 05:49 WBC (3.98-10.04) K/mm3 RBC (3.98-5.22) M/mm3 Hgb (11.2-15.7) gm/dl Hct (34.1-44.9) % MCV (79.4-94.8) fl MCH (25.6-32.2) pg MCHC (32.2-35.5) g/dl RDW Std Deviation (36.4-46.3) fL Plt Count (182-369) K/mm3 MPV (9.4-12.3) fl Neut % (Auto) (34.0-71.1) % Lymph % (Auto) (19.3-51.7) % [place] % (Auto) (4.7-12.5) % Eos % (Auto) (0.7-5.8) Baso % (Auto) (0.1-1.2) % Neut # (Auto) (1.56-6.13) K/mm3 Lymph # (Auto) (1.18-3.74) K/mm3 [place] # (Auto) (0.24-0.36) K/mm3 Eos # (Auto) (0.04-0.36) K/mm3 Baso # (Auto) (0.01-0.08) K/mm3 Manual Slide Review Percent Retic (0.50-1.70) % Sodium 138 (136-145) mEq/L Potassium 4.1 (3.5-5.1) mEq/L Chloride 105 (98-107) mEq/L Carbon Dioxide 27 (21-32) mEq/L Anion Gap 10.1 (5-15) BUN 18 (7-18) mg/dL Creatinine 0.7 (0.55-1.02) mg/dL Est Cr Clr Drug Dosing 71.41 mL/min Estimated GFR (MDRD) > 60 (>60) mL/min BUN/Creatinine Ratio 25.7 H (14-18) Glucose 94 (83-115) mg/dL Calcium 7.7 L (8.5-10.1) mg/dL Total Bilirubin 2.5 H (0.2-1.0) mg/dL AST 54 H (15-37) U/L ALT 20 (14-59) U/L Alkaline Phosphatase 150 H (46-116) U/L Total Protein 4.4 L (6.4-8.2) g/dl Albumin 1.8 L (3.4-5.0) g/dl Globulin 2.6 gm/dL Albumin/Globulin Ratio 0.7 L (1-2) Vitamin B12 (193-986) pg/ml Folate (8.6-58.9) ng/mL TSH 3rd Generation (0.358-3.74) uIU/mL Blood Type Gel Antibody Screen Antibody Identification Crossmatch Med Orders - Current: Current Medications Hydrocodone Bitart/Acetaminophen ([place] 325-5 Mg) 1 tab PO Q6H PRN PRN Reason: Pain Last Admin: 03/31/20 15:10 Dose: 1 tab Documented by: Cyclobenzaprine HCl (Flexeril) 5 mg PO BID PRN PRN Reason: Muscle Spasm Hydromorphone HCl (Dilaudid) 0.5 mg IVPUSH Q4H PRN PRN Reason: Pain Last Admin: 03/26/20 22:54 Dose: 0.5 mg Documented by: Sodium Chloride (Normal Saline) 250 mls @ 75 mls/hr IV ASDIRECTED [facility] Last Admin: 03/31/20 12:44 Dose: 75 mls/hr Documented by: Levothyroxine Sodium (Levothyroxine) 112 mcg PO ACBREAKFAST [facility] Last Admin: 03/31/20 06:26 Dose: 112 mcg Documented by: Nadolol (Naldol) 20 mg PO DAILY [facility] Last Admin: 03/30/20 08:13 Dose: 20 mg Documented by: Pantoprazole Sodium (Protonix) 40 mg PO DAILY [facility] Last Admin: 03/31/20 09:48 Dose: 40 mg Documented by: Rifaximin (Xifaxan) 550 mg PO BID [facility] Last Admin: 03/31/20 09:48 Dose: 550 mg Documented by: Rivaroxaban (Xarelto) 10 mg PO Q24H [facility] Sertraline HCl (Zoloft) 25 mg PO DAILY [facility] Last Admin: 03/31/20 09:48 Dose: 25 mg Documented by: Sodium Chloride (Saline Flush) 10 ml FLUSH ASDIRECTED PRN PRN Reason: Keep Vein Open Last Admin: 03/26/20 18:19 Dose: 10 ml Documented by: Spironolactone (Aldactone) 12.5 mg PO DAILY [facility] Last Admin: 03/30/20 08:12 Dose: 12.5 mg Documented by: Ursodiol (Actigal) 300 mg PO BID [facility] Last Admin: 03/31/20 09:56 Dose: 300 mg Documented by: Discontinued Medications Bupivacaine HCl (Sensorcaine-Mpf 0.25%) Confirm Administered Dose 20 ml .ROUTE .STK-MED ONE Stop: 03/28/20 10:45 Last Admin: 03/28/20 13:55 Dose: 20 ml Documented by: Cefazolin Sodium (Ancef) Confirm Administered Dose 2 gm .ROUTE .STK-MED ONE Stop: 03/28/20 10:53 Cefazolin Sodium (Ancef) Confirm Administered Dose 2 gm .ROUTE .STK-MED ONE Stop: 03/28/20 12:21 Enoxaparin Sodium (Lovenox) 40 mg SUBCUT Q24H [facility] Last Admin: 03/27/20 14:18 Dose: Not Given Documented by: Enoxaparin Sodium (Lovenox) 40 mg SUBCUT Q24H [facility] Last Admin: 03/30/20 21:02 Dose: 40 mg Documented by: Fentanyl (Sublimaze) Confirm Administered Dose 250 mcg .ROUTE .STK-MED ONE Stop: 03/28/20 10:53 Fentanyl (Sublimaze) 50 mcg IVPUSH Q5M PRN PRN Reason: Pain Stop: 03/28/20 18:00 Hydromorphone HCl (Dilaudid) 0.5 mg IVPUSH ONETIME ONE Stop: 03/26/20 18:10 Last Admin: 03/26/20 18:15 Dose: 0.5 mg Documented by: Magnesium Sulfate (Magnesium Sulfate In Water Premix) 2 gm in 50 mls @ 25 mls/hr IV ONETIME ONE Stop: 03/27/20 12:24 Last Admin: 03/27/20 10:33 Dose: 25 mls/hr Documented by: Lactated Ringer's (Ringers, Lactated) 1,000 mls @ 50 mls/hr IV ASDIRECTED [facility] Last Admin: 03/28/20 16:56 Dose: 50 mls/hr Documented by: Sodium Chloride (Normal Saline) 250 mls @ 100 mls/hr IV ASDIRECTED [facility] Last Admin: 03/28/20 09:28 Dose: 100 mls/hr Documented by: Lidocaine HCl (Xylocaine-Mpf 1%) Confirm Administered Dose 4 mls @ as directed .ROUTE .STK-MED ONE Stop: 03/28/20 10:53 Lactated Ringer's (Ringers, Lactated) Confirm Administered Dose 1,000 mls @ as directed .ROUTE .STK-MED ONE Stop: 03/28/20 10:53 Lactated Ringer's (Ringers, Lactated) Confirm Administered Dose 1,000 mls @ as directed .ROUTE .STK-MED ONE Stop: 03/28/20 13:14 Lactated Ringer's (Ringers, Lactated) Confirm Administered Dose 1,000 mls @ as directed .ROUTE .STK-MED ONE Stop: 03/28/20 13:14 Cefazolin Sodium/Dextrose 2 gm (/ Premix) 50 mls @ 100 mls/hr IV Q8H [facility] Stop: 03/29/20 07:29 Last Admin: 03/29/20 06:27 Dose: 100 mls/hr Documented by: Magnesium Sulfate (Magnesium Sulfate In Water Premix) 4 gm in 100 mls @ 25 mls/hr IV ONETIME ONE Stop: 03/29/20 17:43 Last Admin: 03/29/20 15:15 Dose: Not Given Documented by: Magnesium Sulfate 4 gm/ Premix 100 mls @ 25 mls/hr IV ONETIME ONE Stop: 03/29/20 18:14 Last Admin: 03/29/20 15:15 Dose: Not Given Documented by: Magnesium Sulfate (Magnesium Sulfate In Water Premix) 2 gm in 50 mls @ 25 mls/hr IV Q2H [facility] Stop: 03/29/20 18:29 Last Admin: 03/29/20 16:11 Dose: 25 mls/hr Documented by: Magnesium Sulfate (Magnesium Sulfate In Water Premix) Confirm Administered Dose 4 gm in 100 mls @ as directed .ROUTE .STK-MED ONE Stop: 03/29/20 14:16 Last Admin: 03/29/20 15:14 Dose: Not Given Documented by: Lactated Ringer's (Ringers, Lactated) 500 mls @ 500 mls/hr IV .BOLUS ONE Stop: 03/31/20 10:40 Last Admin: 03/31/20 09:49 Dose: 500 mls/hr Documented by: Lactated Ringer's (Ringers, Lactated) Confirm Administered Dose 1,000 mls @ as directed .ROUTE .STK-MED ONE Stop: 03/31/20 09:46 Last Admin: 03/31/20 09:57 Dose: Not Given Documented by: Ketamine HCl (Ketalar) Confirm Administered Dose 500 mg .ROUTE .STK-MED ONE Stop: 03/28/20 10:54 Magnesium Hydroxide (Milk Of Magnesia) 30 ml PO ONETIME ONE Stop: 03/29/20 08:01 Last Admin: 03/29/20 09:21 Dose: 30 ml Documented by: Miscellaneous Medication (Phenylephrine 1 Mg/10 Ml-Ns) Confirm Administered Dose 1 mg .ROUTE .STK-MED ONE Stop: 03/28/20 12:19 Ondansetron HCl (Zofran) 4 mg IVPUSH ONETIME ONE Stop: 03/26/20 18:11 Last Admin: 03/26/20 18:15 Dose: 4 mg Documented by: Ondansetron HCl (Zofran) Confirm Administered Dose 4 mg .ROUTE .STK-MED ONE Stop: 03/28/20 10:53 Propofol (Diprivan 20 Ml) Confirm Administered Dose 400 mg .ROUTE .STK-MED ONE Stop: 03/28/20 10:53 Propofol (Diprivan 20 Ml) Confirm Administered Dose 200 mg .ROUTE .STK-MED ONE Stop: 03/28/20 10:54 Sepsis Event Note - Focused Exam Vital Signs: Vital Signs Temp Pulse Resp BP BP Pulse Ox Pulse Ox 03/31/20 14:38 99 03/31/20 09:27 80/44 L 03/31/20 09:24 36.3 C 66 20 80/48 L 99 03/31/20 07:47 95 - My Orders Last 24 Hours: My Active Orders 03/30/20 16:45 Sodium Chloride 0.9% [Normal Saline] 250 ml IV ASDIRECTED 03/31/20 Breakfast Soft Diet [DIET] 03/31/20 13:28 Consult to Speech Language Pathology [CHARHOUSE WORKER Evaluation and Treatment] [CONS] Routine 03/31/20 21:00 Rivaroxaban [Xarelto] 10 mg PO Q24H - Plan Plan:: Agree with assessment and plan of care as amended; awaiting Lab recheck of PRBCs by Lalit. Was informed of additional check required this afternoon after 1500 hour. Lab personnel came down to explain protocol to patient's daughter. The remote mortgage underwriter, and two nurses were also in attendance. Patient's daughter had no additional questions for lab pipe manufacture supervisor.
[2020-03-31] MEDS: Spironolactone 25 MG Tab PO SCH (18:54)
[2020-03-31] MEDS: Rivaroxaban 10 MG Tab PO SCH (21:37)
[2020-04-01] MEDS: Levothyroxine 112 MCG Tab PO SCH (05:50)
[2020-04-01] MEDS: Acetaminophen/HYDROcodone 325-5 MG Tab PO PRN ×3 (05:50→20:24)
[2020-04-01] MEDS: Spironolactone 25 MG Tab PO SCH (08:29)
[2020-04-01] MEDS: Pantoprazole 40 MG Tab.CR PO SCH (08:29)
[2020-04-01] MEDS: Rifaximin 550 MG Tab PO SCH ×2 (08:29→20:23)
[2020-04-01] MEDS: Sertraline 25 MG Tab PO SCH (08:29)
[2020-04-01] MEDS: Ursodiol 300 MG Cap PO SCH ×2 (08:37→20:23)
[2020-04-01] MEDS ORDERED: Magnesium Sulfate/Water 2 GM/50 ML BAG IV ONE (10:09)
--- NOTE | 2020-04-01 10:34 | PCM.PN ---
- General Info Date of Service: 04/01/20 Admission Dx/Problem (Free Text): Admission Diagnosis/Problem Admission Diagnosis/Problem Hip fracture, intertrochanteric Subjective Update: States she is feeling really good today. Did receive 2 units of blood last evening. Continues working with therapies. On room air. Functional Status: Reports: Pain Controlled, Tolerating Diet, Ambulating, Incentive Spirometry - Review of Systems General: Reports: No Symptoms HEENT: Reports: No Symptoms Pulmonary: Reports: No Symptoms Cardiovascular: Reports: No Symptoms Gastrointestinal: Reports: No Symptoms Genitourinary: Reports: No Symptoms Neurological: Reports: Confusion (Patient tells me that she just went down to the bar on Tuesday night and got into trouble for it. She then plated off as if she was joking. I did speak with her daughter regarding this and she states that she frequently does this to try to cover up her confusion. But it has been going on for quite a few years.) Psychiatric: Reports: Confusion - Patient Data Vitals - Most Recent: Last Vital Signs Temp 98.0 F 04/01/20 08:00 Pulse 65 04/01/20 08:26 Resp 16 04/01/20 08:00 BP 110/55 L 04/01/20 08:26 Pulse Ox 96 04/01/20 08:00 Weight - Most Recent: 161 lb 9.6 oz I&O - Last 24 Hours: Intake & Output 03/31/20 04/01/20 04/01/20 22:59 06:59 14:59 Intake Total 1140 553 Balance 1140 553 Lab Results Last 24 Hours: Laboratory Results - last 24 hr 03/27/20 03/28/20 03/30/20 Range/Units 08:10 05:20 11:20 WBC (3.98-10.04) K/mm3 RBC (3.98-5.22) M/mm3 Hgb (11.2-15.7) gm/dl Hct (34.1-44.9) % MCV (79.4-94.8) fl MCH (25.6-32.2) pg MCHC (32.2-35.5) g/dl RDW Std Deviation (36.4-46.3) fL Plt Count (182-369) K/mm3 MPV (9.4-12.3) fl Neut % (Auto) (34.0-71.1) % Lymph % (Auto) (19.3-51.7) % [place] % (Auto) (4.7-12.5) % Eos % (Auto) (0.7-5.8) Baso % (Auto) (0.1-1.2) % Neut # (Auto) (1.56-6.13) K/mm3 Lymph # (Auto) (1.18-3.74) K/mm3 [place] # (Auto) (0.24-0.36) K/mm3 Eos # (Auto) (0.04-0.36) K/mm3 Baso # (Auto) (0.01-0.08) K/mm3 Manual Slide Review Sodium (136-145) mEq/L Potassium (3.5-5.1) mEq/L Chloride (98-107) mEq/L Carbon Dioxide (21-32) mEq/L Anion Gap (5-15) BUN (7-18) mg/dL Creatinine (0.55-1.02) mg/dL Est Cr Clr Drug Dosing mL/min Estimated GFR (MDRD) (>60) mL/min BUN/Creatinine Ratio (14-18) Glucose (83-115) mg/dL Calcium (8.5-10.1) mg/dL Magnesium (1.8-2.4) mg/dl Total Bilirubin (0.2-1.0) mg/dL AST (15-37) U/L ALT (14-59) U/L Alkaline Phosphatase (46-116) U/L Total Protein (6.4-8.2) g/dl Albumin (3.4-5.0) g/dl Globulin gm/dL Albumin/Globulin Ratio (1-2) Blood Type Cancelled O NEGATIVE Gel Antibody Screen Cancelled Positive Antibody Identification No Antibodies Identified Cancelled No Antibodies Identified Crossmatch See Detail See Detail 03/31/20 03/31/20 04/01/20 Range/Units 05:49 05:49 07:00 WBC 4.18 (3.98-10.04) K/mm3 RBC 2.57 L (3.98-5.22) M/mm3 Hgb 8.5 L (11.2-15.7) gm/dl Hct 26.5 L (34.1-44.9) % MCV 103.1 H (79.4-94.8) fl MCH 33.1 H (25.6-32.2) pg MCHC 32.1 L (32.2-35.5) g/dl RDW Std Deviation 62.9 H (36.4-46.3) fL Plt Count 85 L (182-369) K/mm3 MPV 10.8 (9.4-12.3) fl Neut % (Auto) 53.0 (34.0-71.1) % Lymph % (Auto) 24.2 (19.3-51.7) % [place] % (Auto) 16.5 H (4.7-12.5) % Eos % (Auto) 4.8 (0.7-5.8) Baso % (Auto) 0.5 (0.1-1.2) % Neut # (Auto) 2.22 (1.56-6.13) K/mm3 Lymph # (Auto) 1.01 L (1.18-3.74) K/mm3 [place] # (Auto) 0.69 H (0.24-0.36) K/mm3 Eos # (Auto) 0.20 (0.04-0.36) K/mm3 Baso # (Auto) 0.02 (0.01-0.08) K/mm3 Manual Slide Review Abnormal smear Abnormal smear Sodium 138 (136-145) mEq/L Potassium 4.1 (3.5-5.1) mEq/L Chloride 105 (98-107) mEq/L Carbon Dioxide 27 (21-32) mEq/L Anion Gap 10.1 (5-15) BUN 18 (7-18) mg/dL Creatinine 0.7 (0.55-1.02) mg/dL Est Cr Clr Drug Dosing 71.41 mL/min Estimated GFR (MDRD) > 60 (>60) mL/min BUN/Creatinine Ratio 25.7 H (14-18) Glucose 94 (83-115) mg/dL Calcium 7.7 L (8.5-10.1) mg/dL Magnesium (1.8-2.4) mg/dl Total Bilirubin 2.5 H (0.2-1.0) mg/dL AST 54 H (15-37) U/L ALT 20 (14-59) U/L Alkaline Phosphatase 150 H (46-116) U/L Total Protein 4.4 L (6.4-8.2) g/dl Albumin 1.8 L (3.4-5.0) g/dl Globulin 2.6 gm/dL Albumin/Globulin Ratio 0.7 L (1-2) Blood Type Gel Antibody Screen Antibody Identification Crossmatch 04/01/20 Range/Units 07:00 WBC (3.98-10.04) K/mm3 RBC (3.98-5.22) M/mm3 Hgb (11.2-15.7) gm/dl Hct (34.1-44.9) % MCV (79.4-94.8) fl MCH (25.6-32.2) pg MCHC (32.2-35.5) g/dl RDW Std Deviation (36.4-46.3) fL Plt Count (182-369) K/mm3 MPV (9.4-12.3) fl Neut % (Auto) (34.0-71.1) % Lymph % (Auto) (19.3-51.7) % [place] % (Auto) (4.7-12.5) % Eos % (Auto) (0.7-5.8) Baso % (Auto) (0.1-1.2) % Neut # (Auto) (1.56-6.13) K/mm3 Lymph # (Auto) (1.18-3.74) K/mm3 [place] # (Auto) (0.24-0.36) K/mm3 Eos # (Auto) (0.04-0.36) K/mm3 Baso # (Auto) (0.01-0.08) K/mm3 Manual Slide Review Sodium 140 (136-145) mEq/L Potassium 3.9 (3.5-5.1) mEq/L Chloride 107 (98-107) mEq/L Carbon Dioxide 29 (21-32) mEq/L Anion Gap 7.9 (5-15) BUN 13 (7-18) mg/dL Creatinine 0.6 (0.55-1.02) mg/dL Est Cr Clr Drug Dosing 83.31 mL/min Estimated GFR (MDRD) > 60 (>60) mL/min BUN/Creatinine Ratio 21.7 H (14-18) Glucose 90 (83-115) mg/dL Calcium 7.8 L (8.5-10.1) mg/dL Magnesium 1.5 L (1.8-2.4) mg/dl Total Bilirubin 2.9 H (0.2-1.0) mg/dL AST 49 H (15-37) U/L ALT 17 (14-59) U/L Alkaline Phosphatase 147 H (46-116) U/L Total Protein 4.3 L (6.4-8.2) g/dl Albumin 1.7 L (3.4-5.0) g/dl Globulin 2.6 gm/dL Albumin/Globulin Ratio 0.7 L (1-2) Blood Type Gel Antibody Screen Antibody Identification Crossmatch Med Orders - Current: Current Medications Hydrocodone Bitart/Acetaminophen (Strum 325-5 Mg) 1 tab PO Q6H PRN PRN Reason: Pain Last Admin: 04/01/20 05:50 Dose: 1 tab Documented by: Cyclobenzaprine HCl (Flexeril) 5 mg PO BID PRN PRN Reason: Muscle Spasm Hydromorphone HCl (Dilaudid) 0.5 mg IVPUSH Q4H PRN PRN Reason: Pain Last Admin: 03/26/20 22:54 Dose: 0.5 mg Documented by: Sodium Chloride (Normal Saline) 250 mls @ 75 mls/hr IV ASDIRECTED [facility] Last Admin: 03/31/20 12:44 Dose: 75 mls/hr Documented by: Magnesium Sulfate (Magnesium Sulfate In Water Premix) 2 gm in 50 mls @ 25 mls/hr IV ONETIME ONE Stop: 04/01/20 12:08 Levothyroxine Sodium (Levothyroxine) 112 mcg PO ACBREAKFAST [facility] Last Admin: 04/01/20 05:50 Dose: 112 mcg Documented by: Nadolol (Naldol) 20 mg PO DAILY [facility] Last Admin: 04/01/20 08:26 Dose: 20 mg Documented by: Pantoprazole Sodium (Protonix) 40 mg PO DAILY [facility] Last Admin: 04/01/20 08:29 Dose: 40 mg Documented by: Rifaximin (Xifaxan) 550 mg PO BID [facility] Last Admin: 04/01/20 08:29 Dose: 550 mg Documented by: Rivaroxaban (Xarelto) 10 mg PO Q24H [facility] Last Admin: 03/31/20 21:37 Dose: 10 mg Documented by: Sertraline HCl (Zoloft) 25 mg PO DAILY [facility] Last Admin: 04/01/20 08:29 Dose: 25 mg Documented by: Sodium Chloride (Saline Flush) 10 ml FLUSH ASDIRECTED PRN PRN Reason: Keep Vein Open Last Admin: 03/26/20 18:19 Dose: 10 ml Documented by: Spironolactone (Aldactone) 12.5 mg PO DAILY [facility] Last Admin: 04/01/20 08:29 Dose: 12.5 mg Documented by: Ursodiol (Actigal) 300 mg PO BID [facility] Last Admin: 04/01/20 08:37 Dose: 300 mg Documented by: Discontinued Medications Bupivacaine HCl (Sensorcaine-Mpf 0.25%) Confirm Administered Dose 20 ml .ROUTE .STK-MED ONE Stop: 03/28/20 10:45 Last Admin: 03/28/20 13:55 Dose: 20 ml Documented by: Cefazolin Sodium (Ancef) Confirm Administered Dose 2 gm .ROUTE .STK-MED ONE Stop: 03/28/20 10:53 Cefazolin Sodium (Ancef) Confirm Administered Dose 2 gm .ROUTE .STK-MED ONE Stop: 03/28/20 12:21 Enoxaparin Sodium (Lovenox) 40 mg SUBCUT Q24H [facility] Last Admin: 03/27/20 14:18 Dose: Not Given Documented by: Enoxaparin Sodium (Lovenox) 40 mg SUBCUT Q24H [facility] Last Admin: 03/30/20 21:02 Dose: 40 mg Documented by: Fentanyl (Sublimaze) Confirm Administered Dose 250 mcg .ROUTE .STK-MED ONE Stop: 03/28/20 10:53 Fentanyl (Sublimaze) 50 mcg IVPUSH Q5M PRN PRN Reason: Pain Stop: 03/28/20 18:00 Hydromorphone HCl (Dilaudid) 0.5 mg IVPUSH ONETIME ONE Stop: 03/26/20 18:10 Last Admin: 03/26/20 18:15 Dose: 0.5 mg Documented by: Magnesium Sulfate (Magnesium Sulfate In Water Premix) 2 gm in 50 mls @ 25 mls/hr IV ONETIME ONE Stop: 03/27/20 12:24 Last Admin: 03/27/20 10:33 Dose: 25 mls/hr Documented by: Lactated Ringer's (Ringers, Lactated) 1,000 mls @ 50 mls/hr IV ASDIRECTED [facility] Last Admin: 03/28/20 16:56 Dose: 50 mls/hr Documented by: Sodium Chloride (Normal Saline) 250 mls @ 100 mls/hr IV ASDIRECTED [facility] Last Admin: 03/28/20 09:28 Dose: 100 mls/hr Documented by: Lidocaine HCl (Xylocaine-Mpf 1%) Confirm Administered Dose 4 mls @ as directed .ROUTE .STK-MED ONE Stop: 03/28/20 10:53 Lactated Ringer's (Ringers, Lactated) Confirm Administered Dose 1,000 mls @ as directed .ROUTE .STK-MED ONE Stop: 03/28/20 10:53 Lactated Ringer's (Ringers, Lactated) Confirm Administered Dose 1,000 mls @ as directed .ROUTE .STK-MED ONE Stop: 03/28/20 13:14 Lactated Ringer's (Ringers, Lactated) Confirm Administered Dose 1,000 mls @ as directed .ROUTE .STK-MED ONE Stop: 03/28/20 13:14 Cefazolin Sodium/Dextrose 2 gm (/ Premix) 50 mls @ 100 mls/hr IV Q8H [facility] Stop: 03/29/20 07:29 Last Admin: 03/29/20 06:27 Dose: 100 mls/hr Documented by: Magnesium Sulfate (Magnesium Sulfate In Water Premix) 4 gm in 100 mls @ 25 mls/hr IV ONETIME ONE Stop: 03/29/20 17:43 Last Admin: 03/29/20 15:15 Dose: Not Given Documented by: Magnesium Sulfate 4 gm/ Premix 100 mls @ 25 mls/hr IV ONETIME ONE Stop: 03/29/20 18:14 Last Admin: 03/29/20 15:15 Dose: Not Given Documented by: Magnesium Sulfate (Magnesium Sulfate In Water Premix) 2 gm in 50 mls @ 25 mls/hr IV Q2H [facility] Stop: 03/29/20 18:29 Last Admin: 03/29/20 16:11 Dose: 25 mls/hr Documented by: Magnesium Sulfate (Magnesium Sulfate In Water Premix) Confirm Administered Dose 4 gm in 100 mls @ as directed .ROUTE .STK-MED ONE Stop: 03/29/20 14:16 Last Admin: 03/29/20 15:14 Dose: Not Given Documented by: Lactated Ringer's (Ringers, Lactated) 500 mls @ 500 mls/hr IV .BOLUS ONE Stop: 03/31/20 10:40 Last Admin: 03/31/20 09:49 Dose: 500 mls/hr Documented by: Lactated Ringer's (Ringers, Lactated) Confirm Administered Dose 1,000 mls @ as directed .ROUTE .STK-MED ONE Stop: 03/31/20 09:46 Last Admin: 03/31/20 09:57 Dose: Not Given Documented by: Ketamine HCl (Ketalar) Confirm Administered Dose 500 mg .ROUTE .STK-MED ONE Stop: 03/28/20 10:54 Magnesium Hydroxide (Milk Of Magnesia) 30 ml PO ONETIME ONE Stop: 03/29/20 08:01 Last Admin: 03/29/20 09:21 Dose: 30 ml Documented by: Miscellaneous Medication (Phenylephrine 1 Mg/10 Ml-Ns) Confirm Administered Dose 1 mg .ROUTE .STK-MED ONE Stop: 03/28/20 12:19 Ondansetron HCl (Zofran) 4 mg IVPUSH ONETIME ONE Stop: 03/26/20 18:11 Last Admin: 03/26/20 18:15 Dose: 4 mg Documented by: Ondansetron HCl (Zofran) Confirm Administered Dose 4 mg .ROUTE .STK-MED ONE Stop: 03/28/20 10:53 Propofol (Diprivan 20 Ml) Confirm Administered Dose 400 mg .ROUTE .STK-MED ONE Stop: 03/28/20 10:53 Propofol (Diprivan 20 Ml) Confirm Administered Dose 200 mg .ROUTE .STK-MED ONE Stop: 03/28/20 10:54 - Exam Quality Assessment: DVT Prophylaxis (Xarelto). No: Supplemental Oxygen General: Alert, Oriented, Cooperative, No Acute Distress HEENT: Pupils Equal, Pupils Reactive, Mucous Membr. Moist/[place] Neck: Supple, Trachea Midline. No: Lymphadenopathy Lungs: Normal Respiratory Effort, Crackles (Left posterior lobe. Encourage incentive spirometry use.) Cardiovascular: Regular Rate, Regular Rhythm, No Murmurs GI/Abdominal Exam: Normal Bowel Sounds, Soft, Non-Tender, No Distention (Female) Exam: Deferred Back Exam: Normal Inspection, Full Range of Motion Extremities: Normal Inspection, Normal Range of Motion, No Pedal Edema, Normal Capillary Refill, Other (Pain to right hip due to surgery.) Peripheral Pulses: 2+: Radial (L), Radial (R), Dorsalis Pedis (L), Dorsalis Pedis (R) Skin: Warm, Dry, Intact Wound/Incisions: Dressing Dry and Intact Neurological: No New Focal Deficit Psy/Mental Status: Alert, Normal Affect, Normal Mood Sepsis Event Note - Evaluation Sepsis Screening Result: No Definite Risk - Focused Exam Vital Signs: Vital Signs Temp Temp Pulse Pulse Resp BP BP 04/01/20 08:26 65 110/55 L 04/01/20 08:00 98.0 F 65 16 110/55 L 04/01/20 06:57 04/01/20 01:02 98.1 F 76 18 114/95 H 03/31/20 23:18 98.1 F 76 18 114/95 H 03/31/20 23:07 98.6 F 71 16 03/31/20 23:06 98.6 F 69 95/69 03/31/20 23:03 98.6 F 71 16 95/69 03/31/20 22:43 98.1 F 71 24 H 94/70 03/31/20 22:38 71 94/70 03/31/20 22:37 98.1 F 71 24 H Pulse Ox Pulse Ox 04/01/20 08:26 04/01/20 08:00 96 04/01/20 06:57 95 04/01/20 01:02 93 L 03/31/20 23:18 93 L 03/31/20 23:07 96 03/31/20 23:06 96 03/31/20 23:03 96 03/31/20 22:43 97 03/31/20 22:38 97 03/31/20 22:37 99 - Problem List & Annotations (1) Abnormal LFTs (liver function tests) SNOMED Code(s): 516993296 Code(s): R94.5 - ABNORMAL RESULTS OF LIVER FUNCTION STUDIES Status: Acute Priority: High Current Visit: Yes (2) Hip fracture, intertrochanteric SNOMED Code(s): 233015050 Code(s): S72.143A - DISPLACED INTERTROCHANTERIC FRACTURE OF UNSP FEMUR, INIT Status: Acute Priority: High Current Visit: Yes Qualifiers: Encounter type: initial encounter Fracture type: closed Fracture alignment: displaced Laterality: right Qualified Code(s): S72.141A - Displaced intertrochanteric fracture of right femur, initial encounter for closed fracture (3) Fall SNOMED Code(s): 3811066, 638784858 Code(s): W19.XXXA - UNSPECIFIED FALL, INITIAL ENCOUNTER Status: Acute Priority: High Current Visit: Yes Qualifiers: Encounter type: initial encounter Qualified Code(s): W19.XXXA - Unspecified fall, initial encounter (4) Hypertension SNOMED Code(s): 99431535 Code(s): I10 - ESSENTIAL (PRIMARY) HYPERTENSION Status: Chronic Priority: High Current Visit: Yes Qualifiers: Hypertension type: unspecified Qualified Code(s): I10 - Essential (primary) hypertension - Problem List Review Problem List Initiated/Reviewed/Updated: Yes - My Orders Last 24 Hours: My Active Orders 04/01/20 10:09 Magnesium Sulfate 2 GM in Water @ 25 MLS/HR ONETIME (50ml) Magnesium Sulfate/Water [Magnesium Sulfate in Water Premix] 2 gm in 50 ml IV ONETIME - Assessment Assessment:: Impression: POD 2 S/P fall with right intertochanteric fracture S/P R [id number] Thrombocytopenia, S/P Platelets Chronic Anemia, work up ordered. Hypothyroid HTN HLD Plan: Follow H/H, keep HgB>8.0; ABs noted if needs transfusion PT/OT IS per protocol DVT prophylaxis Pain control 03/31/20 * Lab work reveals: Hemoglobin 7.1, reticulocyte count 5.56, BUN 24, creatinine 0.8, magnesium 2.1, B12 1395, * Is currently on on O2 at 2 L per nasal cannula * Is +1555 mL of intake, has had 315 mL of output. * Patient has been hypotensive 80s over 40s. Did complain of some dizziness when she transferred out of bed to the chair with physical therapy. * Nursing notes that patient is coughing when swallowing her food and drink with meals. * There are orders for patient to receive 2 units of packed red cells, however patient does have antibodies so we are awaiting units from [facility]. 04/01/20 * Hemoglobin 8.5 which is up from 7.1 yesterday. She did receive 2 units of packed red cells. Platelet count 85 which is up from 69. Patient does have chronic thrombocytopenia. Magnesium 1.5. * Vital signs remained stable. She has been afebrile the past 24 hours. * Ambulating with physical therapy. * Awaiting results of swallowing evaluation. - Plan Plan:: Agree with assessment and plan of care as amended; awaiting Lab recheck of PRBCs by Lalit. Was informed of additional check required this afternoon after 1500 hour. Lab personnel came down to explain protocol to patient's daughter. The fiction and nonfiction prose writer, and two nurses were also in attendance. Patient's daughter had no additional questions for lab health unit supervisor. 04/01/20 * Continue working with physical therapy and Occupational Therapy. * Continue Xarelto for DVT prophylaxis. * Incentive spirometer every 1 hour while awake * Continue to monitor vital signs * Magnesium 2 g IV today. * Will recheck labs in the morning. * Plan for discharge to [facility] tomorrow afternoon.
[2020-04-01] MEDS: Rivaroxaban 10 MG Tab PO SCH (20:24)
[2020-04-02] MEDS: Levothyroxine 112 MCG Tab PO SCH (06:02)
[2020-04-02] MEDS ORDERED: Potassium Chloride 20 MEQ Tab.ER PO ONE (08:00)
[2020-04-02] MEDS ORDERED: Magnesium Sulfate/Water 2 GM/50 ML BAG IV ONE (08:00)
--- NOTE | 2020-04-02 08:28 | PCM.SURGPN ---
- General Info Date of Service: 04/02/20 POD#: 5 Functional Status: Reports: Pain Controlled, Tolerating Diet, Ambulating - Patient Data Vitals - Most Recent: Last Vital Signs Temp 98.2 F 04/01/20 23:08 Pulse 69 04/02/20 04:16 Resp 16 04/01/20 23:08 BP 103/77 04/02/20 04:16 Pulse Ox 93 L 04/02/20 04:16 Weight - Most Recent: 163 lb 6.4 oz I&O - Last 24 Hours: Intake & Output 04/01/20 04/02/20 04/02/20 22:59 06:59 14:59 Intake Total 120 100 Balance 120 100 Lab Results Last 24 Hrs: Laboratory Results - last 24 hr 03/30/20 04/01/20 04/01/20 Range/Units : 07:00 07:00 WBC (3.98-10.04) K/mm3 RBC (3.98-5.22) M/mm3 Hgb (11.2-15.7) gm/dl Hct (34.1-44.9) % MCV (79.4-94.8) fl MCH (25.6-32.2) pg MCHC (32.2-35.5) g/dl RDW Std Deviation (36.4-46.3) fL Plt Count (182-369) K/mm3 MPV (9.4-12.3) fl Neut % (Auto) (34.0-71.1) % Lymph % (Auto) (19.3-51.7) % Perkins % (Auto) (4.7-12.5) % Eos % (Auto) (0.7-5.8) Baso % (Auto) (0.1-1.2) % Neut # (Auto) (1.56-6.13) K/mm3 Lymph # (Auto) (1.18-3.74) K/mm3 Perkins # (Auto) (0.24-0.36) K/mm3 Eos # (Auto) (0.04-0.36) K/mm3 Baso # (Auto) (0.01-0.08) K/mm3 Manual Slide Review Abnormal smear Sodium 140 (136-145) mEq/L Potassium 3.9 (3.5-5.1) mEq/L Chloride 107 (98-107) mEq/L Carbon Dioxide 29 (21-32) mEq/L Anion Gap 7.9 (5-15) BUN 13 (7-18) mg/dL Creatinine 0.6 (0.55-1.02) mg/dL Est Cr Clr Drug Dosing 83.31 mL/min Estimated GFR (MDRD) > 60 (>60) mL/min BUN/Creatinine Ratio 21.7 H (14-18) Glucose 90 (83-115) mg/dL Calcium 7.8 L (8.5-10.1) mg/dL Magnesium 1.5 L (1.8-2.4) mg/dl Total Bilirubin 2.9 H (0.2-1.0) mg/dL AST 49 H (15-37) U/L ALT 17 (14-59) U/L Alkaline Phosphatase 147 H (46-116) U/L Total Protein 4.3 L (6.4-8.2) g/dl Albumin 1.7 L (3.4-5.0) g/dl Globulin 2.6 gm/dL Albumin/Globulin Ratio 0.7 L (1-2) SARS-CoV-2 RNA (NAHEED) (NEGATIVE) Crossmatch See Detail 04/01/20 04/02/20 04/02/20 Range/Units 20:25 05:45 05:45 WBC 4.19 (3.98-10.04) K/mm3 RBC 2.58 L (3.98-5.22) M/mm3 Hgb 8.5 L (11.2-15.7) gm/dl Hct 26.5 L (34.1-44.9) % MCV 102.7 H (79.4-94.8) fl MCH 32.9 H (25.6-32.2) pg MCHC 32.1 L (32.2-35.5) g/dl RDW Std Deviation 65.7 H (36.4-46.3) fL Plt Count 77 L (182-369) K/mm3 MPV 10.2 (9.4-12.3) fl Neut % (Auto) 51.3 (34.0-71.1) % Lymph % (Auto) 27.4 (19.3-51.7) % Perkins % (Auto) 16.0 H (4.7-12.5) % Eos % (Auto) 4.3 (0.7-5.8) Baso % (Auto) 0.5 (0.1-1.2) % Neut # (Auto) 2.15 (1.56-6.13) K/mm3 Lymph # (Auto) 1.15 L (1.18-3.74) K/mm3 Perkins # (Auto) 0.67 H (0.24-0.36) K/mm3 Eos # (Auto) 0.18 (0.04-0.36) K/mm3 Baso # (Auto) 0.02 (0.01-0.08) K/mm3 Manual Slide Review Abnormal smear Sodium 139 (136-145) mEq/L Potassium 3.7 (3.5-5.1) mEq/L Chloride 107 (98-107) mEq/L Carbon Dioxide 26 (21-32) mEq/L Anion Gap 9.7 (5-15) BUN 13 (7-18) mg/dL Creatinine 0.5 L (0.55-1.02) mg/dL Est Cr Clr Drug Dosing 99.97 mL/min Estimated GFR (MDRD) > 60 (>60) mL/min BUN/Creatinine Ratio 26.0 H (14-18) Glucose 87 (83-115) mg/dL Calcium 7.7 L (8.5-10.1) mg/dL Magnesium 1.5 L (1.8-2.4) mg/dl Total Bilirubin (0.2-1.0) mg/dL AST (15-37) U/L ALT (14-59) U/L Alkaline Phosphatase (46-116) U/L Total Protein (6.4-8.2) g/dl Albumin (3.4-5.0) g/dl Globulin gm/dL Albumin/Globulin Ratio (1-2) SARS-CoV-2 RNA (NAHEED) Negative (NEGATIVE) Crossmatch Med Orders - Current: Current Medications Hydrocodone Bitart/Acetaminophen ([place] 325-5 Mg) 1 tab PO Q6H PRN PRN Reason: Pain Last Admin: 04/01/20 20:24 Dose: 1 tab Documented by: Cyclobenzaprine HCl (Flexeril) 5 mg PO BID PRN PRN Reason: Muscle Spasm Hydromorphone HCl (Dilaudid) 0.5 mg IVPUSH Q4H PRN PRN Reason: Pain Last Admin: 03/26/20 22:54 Dose: 0.5 mg Documented by: Sodium Chloride (Normal Saline) 250 mls @ 75 mls/hr IV ASDIRECTED [facility] Last Admin: 03/31/20 12:44 Dose: 75 mls/hr Documented by: Magnesium Sulfate (Magnesium Sulfate In Water Premix) 2 gm in 50 mls @ 25 mls/hr IV ONETIME ONE Stop: 04/02/20 09:59 Levothyroxine Sodium (Levothyroxine) 112 mcg PO ACBREAKFAST [facility] Last Admin: 04/02/20 06:02 Dose: 112 mcg Documented by: Nadolol (Naldol) 20 mg PO DAILY [facility] Last Admin: 04/01/20 08:26 Dose: 20 mg Documented by: Pantoprazole Sodium (Protonix) 40 mg PO DAILY [facility] Last Admin: 04/01/20 08:29 Dose: 40 mg Documented by: Rifaximin (Xifaxan) 550 mg PO BID [facility] Last Admin: 04/01/20 20:23 Dose: 550 mg Documented by: Rivaroxaban (Xarelto) 10 mg PO Q24H [facility] Last Admin: 04/01/20 20:24 Dose: 10 mg Documented by: Sertraline HCl (Zoloft) 25 mg PO DAILY [facility] Last Admin: 04/01/20 08:29 Dose: 25 mg Documented by: Sodium Chloride (Saline Flush) 10 ml FLUSH ASDIRECTED PRN PRN Reason: Keep Vein Open Last Admin: 03/26/20 18:19 Dose: 10 ml Documented by: Spironolactone (Aldactone) 12.5 mg PO DAILY [facility] Last Admin: 04/01/20 08:29 Dose: 12.5 mg Documented by: Ursodiol (Actigal) 300 mg PO BID [facility] Last Admin: 04/01/20 20:23 Dose: 300 mg Documented by: Discontinued Medications Bupivacaine HCl (Sensorcaine-Mpf 0.25%) Confirm Administered Dose 20 ml .ROUTE .STK-MED ONE Stop: 03/28/20 10:45 Last Admin: 03/28/20 13:55 Dose: 20 ml Documented by: Cefazolin Sodium (Ancef) Confirm Administered Dose 2 gm .ROUTE .STK-MED ONE Stop: 03/28/20 10:53 Cefazolin Sodium (Ancef) Confirm Administered Dose 2 gm .ROUTE .STK-MED ONE Stop: 03/28/20 12:21 Enoxaparin Sodium (Lovenox) 40 mg SUBCUT Q24H [facility] Last Admin: 03/27/20 14:18 Dose: Not Given Documented by: Enoxaparin Sodium (Lovenox) 40 mg SUBCUT Q24H [facility] Last Admin: 03/30/20 21:02 Dose: 40 mg Documented by: Fentanyl (Sublimaze) Confirm Administered Dose 250 mcg .ROUTE .STK-MED ONE Stop: 03/28/20 10:53 Fentanyl (Sublimaze) 50 mcg IVPUSH Q5M PRN PRN Reason: Pain Stop: 03/28/20 18:00 Hydromorphone HCl (Dilaudid) 0.5 mg IVPUSH ONETIME ONE Stop: 03/26/20 18:10 Last Admin: 03/26/20 18:15 Dose: 0.5 mg Documented by: Magnesium Sulfate (Magnesium Sulfate In Water Premix) 2 gm in 50 mls @ 25 mls/hr IV ONETIME ONE Stop: 03/27/20 12:24 Last Admin: 03/27/20 10:33 Dose: 25 mls/hr Documented by: Lactated Ringer's (Ringers, Lactated) 1,000 mls @ 50 mls[facility] Last Admin: 03/28/20 16:56 Dose: 50 mls/hr Documented by: Sodium Chloride (Normal Saline) 250 mls @ 100 mls/hr IV [facility] Last Admin: 03/28/20 09:28 Dose: 100 mls/hr Documented by: Lidocaine HCl (Xylocaine-Mpf 1%) Confirm Administered Dose 4 mls @ as directed . ROUTE .STK-MED ONE Stop: 03/28/20 10:53 Lactated Ringer's (Ringers, Lactated) Confirm Administered Dose 1,000 mls @ as directed .ROUTE .STK-MED ONE Stop: 03/28/20 10:53 Lactated Ringer's (Ringers, Lactated) Confirm Administered Dose 1,000 mls @ as directed .ROUTE .STK-MED ONE Stop: 03/28/20 13:14 Lactated Ringer's (Ringers, Lactated) Confirm Administered Dose 1,000 mls @ as directed .ROUTE .STK-MED ONE Stop: 03/28/20 13:14 Cefazolin Sodium/Dextrose 2 gm (/ Premix) 50 mls @ 100 mls/hr IV Q8H CARL[facility] Stop: 03/29/20 07:29 Last Admin: 03/29/20 06:27 Dose: 100 mls/hr Documented by: Magnesium Sulfate (Magnesium Sulfate In Water Premix) 4 gm in 100 mls @ 25 mls/hr IV ONETIME ONE Stop: 03/29/20 17:43 Last Admin: 03/29/20 15:15 Dose: Not Given Documented by: Magnesium Sulfate 4 gm/ Premix 100 mls @ 25 mls/hr IV ONETIME ONE Stop: 03/29/20 18:14 Last Admin: 03/29/20 15:15 Dose: Not Given Documented by: Magnesium Sulfate (Magnesium Sulfate In Water Premix) 2 gm in 50 mls @ 25 ml s/hr IV Q2H [facility] Stop: 03/29/20 18:29 Last Admin: 03/29/20 16:11 Dose: 25 mls/hr Documented by: Magnesium Sulfate (Magnesium Sulfate In Water Premix) Confirm Administered Dose 4 gm in 100 mls @ as directed .ROUTE .STK-MED ONE Stop: 03/29/20 14:16 Last Admin: 03/29/20 15:14 Dose: Not Given Documented by: Lactated Ringer's (Ringers, Lactated) 500 mls @ 500 mls/hr IV .BOLUS ONE Stop: 03/31/20 10:40 Last Admin: 03/31/20 09:49 Dose: 500 mls/hr Documented by: Lactated Ringer's (Ringers, Lactated) Confirm Administered Dose 1,000 mls @ as directed .ROUTE .STK-MED ONE Stop: 03/31/20 09:46 Last Admin: 03/31/20 09:57 Dose: Not Given Documented by: Magnesium Sulfate (Magnesium Sulfate In Water Premix) 2 gm in 50 mls @ 25 mls/hr IV ONETIME ONE Stop: 04/01/20 12:08 Last Admin: 04/01/20 10:31 Dose: 25 mls/hr Documented by: Ketamine HCl (Ketalar) Confirm Administered Dose 500 mg .ROUTE .STK-MED ONE Stop: 03/28/20 10:54 Magnesium Hydroxide (Milk Of Magnesia) 30 ml PO ONETIME ONE Stop: 03/29/20 08:01 Last Admin: 03/29/20 09:21 Dose: 30 ml Documented by: Miscellaneous Medication (Phenylephrine 1 Mg/10 Ml-Ns) Confirm Administered Dose 1 mg .ROUTE .STK-MED ONE Stop: 03/28/20 12:19 Ondansetron HCl (Zofran) 4 mg IVPUSH ONETIME ONE Stop: 03/26/20 18:11 Last Admin: 03/26/20 18:15 Dose: 4 mg Documented by: Ondansetron HCl (Zofran) Confirm Administered Dose 4 mg .ROUTE .STK-MED ONE Stop: 03/28/20 10:53 Potassium Chloride (Klor-Con M20) 20 meq PO ONETIME ONE Stop: 04/02/20 08:01 Propofol (Diprivan 20 Ml) Confirm Administered Dose 400 mg .ROUTE .STK-MED ONE Stop: 03/28/20 10:53 Propofol (Diprivan 20 Ml) Confirm Administered Dose 200 mg .ROUTE .STK-MED ONE Stop: 03/28/20 10:54 - Exam Wound/Incisions: Other (One bandage removed. Others with shadowing noted, however, no new bleeding appreciated.) General: Alert, Cooperative Lungs: Normal Respiratory Effort Extremities: Other (Right thigh soft, nontender. Active ankle DF noted. Pt was able to sense touch at RLE. Oriana's negative.) Sepsis Event Note - Evaluation Sepsis Screening Result: No Definite Risk - Focused Exam Vital Signs: Vital Signs Temp Pulse Resp BP Pulse Ox 04/02/20 04:16 69 103/77 93 L 04/01/20 23:08 98.2 F 75 16 114/86 91 L - Problem List Review Problem List Initiated/Reviewed/Updated: Yes - My Orders Last 24 Hours: Active Orders 24 hr Category Date Time Status Communication Order [RC] ASDIRECTED Care 04/02/20 06:33 Active Mechanical Soft Diet [DIET] Diet 04/01/20 Lunch Active Magnesium Sulfate/Water [Magnesium Sulfate in Water Med 04/02/20 08:00 Active Premix] 2 gm in 50 ml IV ONETIME Medication Orders Hydrocodone Bitart/Acetaminophen ([place] 325-5 Mg) 1 tab PO Q6H PRN PRN Reason: Pain Last Admin: 04/01/20 20:24 Dose: 1 tab Documented by: Admin: 04/01/20 14:08 Dose: 1 tab Documented by: Admin: 04/01/20 05:50 Dose: 1 tab Documented by: Admin: 03/31/20 22:30 Dose: 1 tab Documented by: Admin: 03/31/20 15:10 Dose: 1 tab Documented by: Admin: 03/31/20 06:53 Dose: 1 tab Documented by: Admin: 03/30/20 13:18 Dose: 1 tab Documented by: Admin: 03/29/20 20:35 Dose: 1 tab Documented by: Admin: 03/29/20 13:51 Dose: 1 tab Documented by: Admin: 03/29/20 06:25 Dose: 1 tab Documented by: Admin: 03/28/20 16:13 Dose: 1 tab Documented by: Admin: 03/27/20 18:08 Dose: 1 tab Documented by: Admin: 03/27/20 09:53 Dose: 1 tab Documented by: Admin: 03/26/20 21:45 Dose: 1 tab Documented by: MAURO Cyclobenzaprine HCl (Flexeril) 5 mg PO BID PRN PRN Reason: Muscle Spasm Hydromorphone HCl (Dilaudid) 0.5 mg IVPUSH Q4H PRN PRN Reason: Pain Last Admin: 03/26/20 22:54 Dose: 0.5 mg Documented by: MAURO Sodium Chloride (Normal Saline) 250 mls @ 75 mls/hr IV ASDIRECTED [facility] Last Admin: 03/31/20 12:44 Dose: 75 mls/hr Documented by: MCKENNA Magnesium Sulfate (Magnesium Sulfate In Water Premix) 2 gm in 50 mls @ 25 mls/hr IV ONETIME ONE Stop: 04/02/20 09:59 Levothyroxine Sodium (Levothyroxine) 112 mcg PO ACBREAKFAST [facility] Last Admin: 04/02/20 06:02 Dose: 112 mcg Documented by: Admin: 04/01/20 05:50 Dose: 112 mcg Documented by: Admin: 03/31/20 06:26 Dose: 112 mcg Documented by: Admin: 03/30/20 07:41 Dose: 112 mcg Documented by: Admin: 03/29/20 06:25 Dose: 112 mcg Documented by: Admin: 03/28/20 06:05 Dose: Not Given Documented by: MARTY Nadolol (Naldol) 20 mg PO DAILY [facility] Admin: 04/01/20 08:26 Dose: 20 mg Documented by: Admin: 03/31/20 18:54 Dose: 20 mg Documented by: Admin: 03/30/20 08:13 Dose: 20 mg Documented by: Admin: 03/29/20 09:21 Dose: 20 mg Documented by: Admin: 03/28/20 08:52 Dose: 20 mg Documented by: CANDELARIA Pantoprazole Sodium (Protonix) 40 mg PO DAILY [facility] Admin: 04/01/20 08:29 Dose: 40 mg Documented by: Admin: 03/31/20 09:48 Dose: 40 mg Documented by: Admin: 03/30/20 08:11 Dose: 40 mg Documented by: Admin: 03/29/20 09:22 Dose: 40 mg Documented by: Admin: 03/28/20 08:59 Dose: Not Given Documented by: CANDELARIA Rifaximin (Xifaxan) 550 mg PO BID [facility] Admin: 04/01/20 20:23 Dose: 550 mg Documented by: Admin: 04/01/20 08:29 Dose: 550 mg Documented by: Admin: 03/31/20 21:37 Dose: 550 mg Documented by: Admin: 03/31/20 09:48 Dose: 550 mg Documented by: Admin: 03/30/20 21:02 Dose: 550 mg Documented by: Admin: 03/30/20 08:11 Dose: 550 mg Documented by: Admin: 03/29/20 20:33 Dose: 550 mg Documented by: Admin: 03/29/20 09:21 Dose: 550 mg Documented by: Admin: 03/28/20 21:12 Dose: 550 mg Documented by: Admin: 03/28/20 08:53 Dose: 550 mg Documented by: Admin: 03/27/20 21:15 Dose: 550 mg Documented by: MARTY Rivaroxaban (Xarelto) 10 mg PO Q24H [facility] Admin: 04/01/20 20:24 Dose: 10 mg Documented by: Admin: 03/31/20 21:37 Dose: 10 mg Documented by: LISETH Sertraline HCl (Zoloft) 25 mg PO DAILY [facility] Admin: 04/01/20 08:29 Dose: 25 mg Documented by: Admin: 03/31/20 09:48 Dose: 25 mg Documented by: Admin: 03/30/20 08:11 Dose: 25 mg Documented by: Admin: 03/29/20 09:21 Dose: 25 mg Documented by: Admin: 03/28/20 08:59 Dose: Not Given Documented by: Admin: 03/27/20 15:59 Dose: 25 mg Documented by: AILYN Sodium Chloride (Saline Flush) 10 ml FLUSH ASDIRECTED PRN PRN Reason: Keep Vein Open Last Admin: 03/26/20 18:19 Dose: 10 ml Documented by: DOUGIE Spironolactone (Aldactone) 12.5 mg PO DAILY [facility] Admin: 04/01/20 08:29 Dose: 12.5 mg Documented by: Admin: 03/31/20 18:54 Dose: 12.5 mg Documented by: Admin: 03/30/20 08:12 Dose: 12.5 mg Documented by: Admin: 03/29/20 09:22 Dose: 12.5 mg Documented by: Admin: 03/28/20 08:53 Dose: 12.5 mg Documented by: Admin: 03/27/20 15:52 Dose: Not Given Documented by: MCKENNA Ursodiol (Actigal) 300 mg PO BID [facility] Admin: 04/01/20 20:23 Dose: 300 mg Documented by: Admin: 04/01/20 08:37 Dose: 300 mg Documented by: Admin: 03/31/20 21:41 Dose: Not Given Documented by: Admin: 03/31/20 09:56 Dose: 300 mg Documented by: Admin: 03/30/20 21:02 Dose: 300 mg Documented by: Admin: 03/30/20 08:14 Dose: 300 mg Documented by: Admin: 03/29/20 20:35 Dose: 300 mg Documented by: Admin: 03/29/20 09:22 Dose: 300 mg Documented by: Admin: 03/28/20 21:12 Dose: 300 mg Documented by: Admin: 03/28/20 08:53 Dose: 300 mg Documented by: Admin: 03/27/20 21:15 Dose: 300 mg Documented by: MARTY - Assessment Assessment (Free Text/Narrative):: POD#5 - s/p cephalomedullary nail placement for right hip fracture - Plan Plan (Free Text/Narrative):: 1. Orders per Hospitalist service. 2. Will change bandages today. 3. Suspect d/c to [place] for continued therapy. 4. Toe-touch weightbearing RLE at this time. The pt's case was discussed with Dr. Childs.
[2020-04-02] MEDS: Sertraline 25 MG Tab PO SCH (09:33)
[2020-04-02] MEDS: Spironolactone 25 MG Tab PO SCH (09:33)
[2020-04-02] MEDS: Ursodiol 300 MG Cap PO SCH (09:33)
[2020-04-02] MEDS: Pantoprazole 40 MG Tab.CR PO SCH (09:34)
[2020-04-02] MEDS: Rifaximin 550 MG Tab PO SCH (09:36)
[2020-04-02] MEDS: Acetaminophen/HYDROcodone 325-5 MG Tab PO PRN (09:51)
[2020-04-02 11:57] VITALS: BP 98/61; PULSE 64
[2020-04-02] MEDS ORDERED: Cephalexin 500 MG Cap PO SCH (12:15)
--- NOTE | 2020-04-02 13:42 | PCM.DCSUM1 ---
Discharge Summary - Hospital Course HPI Initial Comments: Patient is a 74-year-old female presenting to the emergency department with complaints of pain and deformity to her right hip after having a fall at home. Patient lives at [facility] in the assisted living facility. She states that she was walking through her living room and tripped. She did hit her head but does not feel like she lost consciousness. She is mainly complaining of pain to her right hip. She did receive 50 mcg of fentanyl and Dilaudid 0.5 mg IV via EMS while in route to the facility. Patient denies any history of previous injury to this hip and has not had prosthesis. She denies any headache or vision changes at this time. Right Hip Diagnosis: Stroke: No - Discharge Data Discharge Date: 04/02/20 (Admit date: 03/27/20) Discharge Disposition: DC/Tfer to SNF 03 Condition: Good - Referral to Home Health Primary Care Physician: Jamie Tolentino MD - Discharge Diagnosis/Problem(s) (1) Abnormal LFTs (liver function tests) SNOMED Code(s): 198580781 ICD Code: R94.5 - ABNORMAL RESULTS OF LIVER FUNCTION STUDIES Status: Acute Priority: High Current Visit: Yes (2) Hip fracture, intertrochanteric SNOMED Code(s): 245143496 ICD Code: S72.143A - DISPLACED INTERTROCHANTERIC FRACTURE OF UNSP FEMUR, INIT Status: Acute Priority: High Current Visit: Yes Qualifiers: Encounter type: initial encounter Fracture type: closed Fracture alignment: displaced Laterality: right Qualified Code(s): S72.141A - Displaced intertrochanteric fracture of right femur, initial encounter for closed fracture (3) Fall SNOMED Code(s): 5012958, 153053067 ICD Code: W19.XXXA - UNSPECIFIED FALL, INITIAL ENCOUNTER Status: Acute Priority: High Current Visit: Yes Qualifiers: Encounter type: initial encounter Qualified Code(s): W19.XXXA - Unspecified fall, initial encounter (4) Hypertension SNOMED Code(s): 60520649 ICD Code: I10 - ESSENTIAL (PRIMARY) HYPERTENSION Status: Chronic Priority: High Current Visit: Yes Qualifiers: Hypertension type: unspecified Qualified Code(s): I10 - Essential (primary) hypertension - Patient Summary/Data Consults: Consultations 03/26/20 22:41 Consult to Physician [CONS] Routine 03/28/20 14:19 Consult to Warehouse Freight Handler [CONS] Routine OT Evaluation and Treatment [CONS] Routine PT Evaluation and Treatment [CONS] Routine 03/28/20 14:47 OT Evaluation and Treatment [CONS] Routine PT Evaluation and Treatment [CONS] Routine 03/31/20 13:28 Consult to Speech Language Pathology [BEVEL FACE STONER AND POLISHER Evaluation and Treatment] [CONS] Routine Hospital Course: 03/28/20 * Vital signs remained stable patient is 92 to 93% on room air * Lab work reveals hemoglobin 9.7, platelet 70 1:07 unit last evening, potassium 3.7, BUN 12, creatinine 0.5, GFR greater than 60, * Patient's platelet level after receiving second unit of platelets this morning is 117, SHERINE Delacruz notified of this. * Patient is awaiting surgery for right hip fracture. * She has been n.p.o. since midnight. * Incentive spirometry at the bedside. - Plan Plan:: * 74-year-old female with a history of [facility] * X-ray of the right hip shows a displaced intertrochanteric fracture. * Labs in the emergency department reveal bilirubin 2.9, AST 69, alk phos 294, CRP 2.1, platelet count of 68. Patient does have a history of elevated bilirubin and this is in the normal range for her. Patient also has a history of chronic thrombocytopenia. * Vital signs in the emergency department: Temp 97.4, pulse 77, respiratory rate 18, blood pressure 138/65, pulse ox 90% on room air. * Repeat platelet count this mornin PLAN: * Patient will be admitted to [facility] floor observation status. * Dr. Childs will consult on the patient and evaluate for surgery. * SHERINE Wallace notified of patient's most recent platelet count. She is requesting that the patient be rescheduled for surgery tomorrow and that the patient received platelets today. * Lovenox for DVT prophylaxis * Monitor vital signs and intake and output. * Patient is n.p.o. at this time. * Will repeat labs in the a.m. * Incentive spirometer * PT/OT will evaluate and treat after surgery. 03/28/20 * Dr. Childs to perform surgery to right hip fracture today. * SCDs on for DVT prophylaxis. Lovenox on hold due to low platelet count. * To her vital signs and intake and output. * Repeat labs in the a.m. * Incentive spirometer every 1 hour while awake * PT OT to eval and treat patient * developmental services worker for discharge planning * Dietitian to consult for nutritional needs Impression: S/P fall with right intertochanteric fracture S/P R ЮЛИЯ Thrombocytopenia, S/P Platelets Chronic Anemia Hypothyroid HTN HLD Plan: Follow H/H, keep HgB>8.0; ABs noted if needs transfusion PT/OT IS per protocol DVT prophylaxis Pain control Impression: POD 2 S/P fall with right intertochanteric fracture S/P R ЮЛИЯ Thrombocytopenia, S/P Platelets Chronic Anemia, work up ordered. Hypothyroid HTN HLD Plan: Follow H/H, keep HgB>8.0; ABs noted if needs transfusion PT/OT IS per protocol DVT prophylaxis Pain control 03/31/20 * Lab work reveals: Hemoglobin 7.1, reticulocyte count 5.56, BUN 24, creatinine 0.8, magnesium 2.1, B12 1395, * Is currently on on O2 at 2 L per nasal cannula * Is +1555 mL of intake, has had 315 mL of output. * Patient has been hypotensive 80s over 40s. Did complain of some dizziness when she transferred out of bed to the chair with physical therapy. * Nursing notes that patient is coughing when swallowing her food and drink with meals. * There are orders for patient to receive 2 units of packed red cells, however patient does have antibodies so we are awaiting units from Lalit. 04/01/20 * Hemoglobin 8.5 which is up from 7.1 yesterday. She did receive 2 units of packed red cells. Platelet count 85 which is up from 69. Patient does have chronic thrombocytopenia. Magnesium 1.5. * Vital signs remained stable. She has been afebrile the past 24 hours. * Ambulating with physical therapy. * Awaiting results of swallowing evaluation. - Plan Plan:: Agree with assessment and plan of care as amended; awaiting Lab recheck of PRBCs by Lalit. Was informed of additional check required this afternoon after 1500 hour. Lab personnel came down to explain protocol to patient's daughter. The specifications writer, and two nurses were also in attendance. Patient's daughter had no additional questions for lab glue specialty supervisor. 04/01/20 * Continue working with physical therapy and Occupational Therapy. * Continue Xarelto for DVT prophylaxis. * Incentive spirometer every 1 hour while awake * Continue to monitor vital signs * Magnesium 2 g IV today. * Will recheck labs in the morning. * Plan for discharge to [facility] tomorrow afternoon. 04/02/20 * Patient is ready for discharge to [facility]. * Pt's daughter reports that the patient is slightly more confused than usual. * Nursing staff reports that patient is complaining of dysuria. UA collected shows:Trace of protein, urine occult blood trace, urine nitrite positive, 2+ bilirubin, urobilinogen greater than or equal to 8.0, leukocyte Estrace 1+, urine WBCs 30-40, many bacteria, urine mucus many. Culture pending. * Pt will be given Keflex 500mg bid x 5 days. * I suspect this is what is causing the patient's increased confusion. * Magnesium 1.5 today. Magnesium will be replaced with 2 g IV x1 dose today prior to discharge. * Patient will be continued on Xarelto 10 mg daily for 35 days for postop VTE related to orthopedic surgery. - Patient Instructions Diet: Usual Diet as Tolerated Activity: Apply Ice, As Tolerated, Elevate Extremity Activity, Other: TTWB for the surgical limb. Driving: Do Not Drive Showering/Bathing: May Shower Wound/Incision Care: Keep Operative Site/Wound Site Clean and Dry, Do NOT Change Dressing Notify Provider of: Fever, Increased Pain, Swelling and Redness, Drainage, Nausea and/or Vomiting Other/Special Instructions: Please get up and moving around EVERY HOUR while awake. This helps to prevent blood clots. Please use your walker and have help with mobility as needed. Take a short walk every hour while awake. Please use the blood thinner medication as prescribed by the Clinic. Please complete the exercises that you learned during the Hospital stay. Schedule for physical and occupational therapy. Use the pain medication as needed. The medication may cause drowsiness and constipation. Contact your primary care provider for instructions if you are constipated. You may use a stool softener like docusate sodium or Colace 100mg twice daily and/or a laxative like Miralax daily for constipation. Increase your water and fiber intake while you are using the pain medication. Please discontinue use of the prescription pain medication as soon as able. The goal is to use the least amount of prescription pain medication as possible and to discontinue use of the prescription pain medication as soon as possible. Please do not use other medications that may cause drowsiness (other pain medications, anxiety pills, cold medications, sleeping pills, etc) while using the prescription pain medication. Do not use alcohol while using the pain medication. You may use acetaminophen or Tylenol for pain management, however, please ensure you are not using over 4000 mg or 4 grams of acetaminophen per day from all sources. Your pain medication has 325mg of acetaminophen per tablet. Wear the PHUONG hose during the day and you may remove these at night. Elevate the limb to decrease swelling. Elevating above the level of the heart will be the most effective. Place ice to the area often. Place a towel between your skin and the blue pad. Use the incentive spirometer often. Take deep breaths throughout the day. Please keep the dressing in place until follow-up. Notify the Clinic if the dressing becomes saturated. Increase your protein intake while you are healing. It is normal to have swelling and bruising at the surgical site, as well as above and below the surgical site. Call the Clinic with questions or concerns - [phone] and leave a message for the nurse. Xarelto 10mg daily x 35 days for DVT prophylaxis. Keflex 500mg twice daily for 5 days. First dose given in the Hospital. - Discharge Plan *PRESCRIPTION DRUG MONITORING PROGRAM REVIEWED*: Yes *COPY OF PRESCRIPTION DRUG MONITORING REPORT IN PATIENT ANIKA: Yes Prescriptions/Med Rec: cephALEXin [Keflex] 500 mg PO BID #9 cap Acetaminophen/HYDROcodone [[place] 325-5 MG] 1 tab PO Q6H PRN #20 tablet PRN Reason: Pain Rivaroxaban [Xarelto] 10 mg PO Q24H #35 tablet Home Medications: Home Meds Levothyroxine 112 mcg PO DAILY 03/21/19 [History] Omeprazole 40 mg PO DAILY 03/21/19 [History] Rifaximin [Xifaxan] 550 mg PO BID 03/21/19 [History] Sertraline [Zoloft] 25 mg PO DAILY 03/21/19 [History] Spironolactone [Aldactone] 12.5 mg PO DAILY 03/21/19 [History] nadoloL [Corgard] 20 mg PO DAILY 03/21/19 [History] ursodioL [Ursodiol] 300 mg PO BID 03/21/19 [History] Ibuprofen 200 mg PO TID PRN 30 Days tablet 03/27/19 [Rx] Cyclobenzaprine [Flexeril] 5 mg PO BID PRN 07/27/19 [History] Lactulose [Cephulac] 20 gm PO DAILY 07/27/19 [History] Acetaminophen 650 mg PO Q4H PRN 03/26/20 [History] Benzonatate 100 mg PO TID PRN 03/26/20 [History] Calcium Carbonate/Vitamin D3 [Calcium 500-Vit D3 200 Caplet] 2 tab PO DAILY 03/26/20 [History] Cholecalciferol (Vitamin D3) [Vitamin D3] 5,000 unit PO DAILY 03/26/20 [History] Fexofenadine HCl [Mirian Allergy] 60 mg PO DAILY 03/26/20 [History] Simethicone 125 mg PO QIDPCANDBED 03/26/20 [History] Acetaminophen/HYDROcodone [[place] 325-5 MG] 1 tab PO Q6H PRN #20 tablet 04/02/20 [Rx] Rivaroxaban [Xarelto] 10 mg PO Q24H #35 tablet 04/02/20 [Rx] cephALEXin [Keflex] 500 mg PO BID #9 cap 04/02/20 [Rx] Oxygen Therapy Mode: Room Air Patient Handouts: Hip Fracture Treated With ORIF Referrals: Mary Springer PA-C [Physician Veneer Sample Maker] - 04/09/20 10:00 am (Please follow up with Mary Springer PA-C on April 09 at 10:00.) Jamie Tolentino MD [Primary Care Provider] - 04/09/20 1:00 pm (Please follow up with Dr. Tolentino on April 09 at 1pm.) - Discharge Summary/Plan Comment DC Time >30 min.: No - General Info Date of Service: 04/02/20 Admission Dx/Problem (Free Text: Admission Diagnosis/Problem Admission Diagnosis/Problem Hip fracture, intertrochanteric Functional Status: Reports: Pain Controlled, Tolerating Diet, Ambulating (With physical therapy), Urinating (Complaining of dysuria), Incentive Spirometry - Review of Systems General: Reports: No Symptoms HEENT: Reports: No Symptoms Pulmonary: Reports: No Symptoms Cardiovascular: Reports: No Symptoms Gastrointestinal: Reports: No Symptoms Genitourinary: Reports: No Symptoms Musculoskeletal: Reports: No Symptoms Skin: Reports: Jaundice Neurological: Reports: Confusion Psychiatric: Reports: Confusion - Patient Data Vitals - Most Recent: Last Vital Signs Temp 98.1 F 04/02/20 11:45 Pulse 64 04/02/20 11:45 Resp 20 04/02/20 11:45 BP 98/61 04/02/20 11:45 Pulse Ox 95 04/02/20 11:45 Weight - Most Recent: 163 lb 6.4 oz I&O - Last 24 hours: Intake & Output 04/01/20 04/02/20 04/02/20 22:59 06:59 14:59 Intake Total 120 100 Balance 120 100 Lab Results - Last 24 hrs: Laboratory Results - last 24 hr 03/30/20 04/01/20 04/02/20 Range/Units 11:20 20:25 05:45 WBC 4.19 (3.98-10.04) K/mm3 RBC 2.58 L (3.98-5.22) M/mm3 Hgb 8.5 L (11.2-15.7) gm/dl Hct 26.5 L (34.1-44.9) % MCV 102.7 H (79.4-94.8) fl MCH 32.9 H (25.6-32.2) pg MCHC 32.1 L (32.2-35.5) g/dl RDW Std Deviation 65.7 H (36.4-46.3) fL Plt Count 77 L (182-369) K/mm3 MPV 10.2 (9.4-12.3) fl Neut % (Auto) 51.3 (34.0-71.1) % Lymph % (Auto) 27.4 (19.3-51.7) % [place] % (Auto) 16.0 H (4.7-12.5) % Eos % (Auto) 4.3 (0.7-5.8) Baso % (Auto) 0.5 (0.1-1.2) % Neut # (Auto) 2.15 (1.56-6.13) K/mm3 Lymph # (Auto) 1.15 L (1.18-3.74) K/mm3 [place] # (Auto) 0.67 H (0.24-0.36) K/mm3 Eos # (Auto) 0.18 (0.04-0.36) K/mm3 Baso # (Auto) 0.02 (0.01-0.08) K/mm3 Manual Slide Review Abnormal smear Sodium (136-145) mEq/L Potassium (3.5-5.1) mEq/L Chloride (98-107) mEq/L Carbon Dioxide (21-32) mEq/L Anion Gap (5-15) BUN (7-18) mg/dL Creatinine (0.55-1.02) mg/dL Est Cr Clr Drug Dosing mL/min Estimated GFR (MDRD) (>60) mL/min BUN/Creatinine Ratio (14-18) Glucose (83-115) mg/dL Calcium (8.5-10.1) mg/dL Magnesium (1.8-2.4) mg/dl Urine Color (Yellow) Urine Appearance (Clear) Urine pH (5.0-8.0) Ur Specific [place] (1.005-1.030) Urine Protein (Negative) Urine Glucose (UA) (Negative) Urine Ketones (Negative) Urine Occult Blood (Negative) Urine Nitrite (Negative) Urine Bilirubin (Negative) Urine Urobilinogen (0.2-1.0) Ur Leukocyte Esterase (Negative) Urine RBC (0-5) /hpf Urine WBC (0-5) /hpf Ur Squamous Epith Cells (0-5) /hpf Calcium Oxalate Crystal (NONE) Urine Bacteria (FEW) /hpf Urine Mucus (FEW) /hpf SARS-CoV-2 RNA (NAHEED) Negative (NEGATIVE) Crossmatch See Detail 04/02/20 04/02/20 Range/Units 05:45 11:11 WBC (3.98-10.04) K/mm3 RBC (3.98-5.22) M/mm3 Hgb (11.2-15.7) gm/dl Hct (34.1-44.9) % MCV (79.4-94.8) fl MCH (25.6-32.2) pg MCHC (32.2-35.5) g/dl RDW Std Deviation (36.4-46.3) fL Plt Count (182-369) K/mm3 MPV (9.4-12.3) fl Neut % (Auto) (34.0-71.1) % Lymph % (Auto) (19.3-51.7) % [place] % (Auto) (4.7-12.5) % Eos % (Auto) (0.7-5.8) Baso % (Auto) (0.1-1.2) % Neut # (Auto) (1.56-6.13) K/mm3 Lymph # (Auto) (1.18-3.74) K/mm3 [place] # (Auto) (0.24-0.36) K/mm3 Eos # (Auto) (0.04-0.36) K/mm3 Baso # (Auto) (0.01-0.08) K/mm3 Manual Slide Review Sodium 139 (136-145) mEq/L Potassium 3.7 (3.5-5.1) mEq/L Chloride 107 (98-107) mEq/L Carbon Dioxide 26 (21-32) mEq/L Anion Gap 9.7 (5-15) BUN 13 (7-18) mg/dL Creatinine 0.5 L (0.55-1.02) mg/dL Est Cr Clr Drug Dosing 99.97 mL/min Estimated GFR (MDRD) > 60 (>60) mL/min BUN/Creatinine Ratio 26.0 H (14-18) Glucose 87 (83-115) mg/dL Calcium 7.7 L (8.5-10.1) mg/dL Magnesium 1.5 L (1.8-2.4) mg/dl Urine Color Rosalia H (Yellow) Urine Appearance Cloudy H (Clear) Urine pH 6.5 (5.0-8.0) Ur Specific [place] 1.025 (1.005-1.030) Urine Protein Trace H (Negative) Urine Glucose (UA) Negative (Negative) Urine Ketones Negative (Negative) Urine Occult Blood Trace-intact H (Negative) Urine Nitrite Positive H (Negative) Urine Bilirubin 2+ H (Negative) Urine Urobilinogen >=8.0 H (0.2-1.0) Ur Leukocyte Esterase 1+ H (Negative) Urine RBC 0-5 (0-5) /hpf Urine WBC 30-40 H (0-5) /hpf Ur Squamous Epith Cells 10-20 H (0-5) /hpf Calcium Oxalate Crystal Occasional H (NONE) Urine Bacteria Many H (FEW) /hpf Urine Mucus Many H (FEW) /hpf SARS-CoV-2 RNA (NAHEED) (NEGATIVE) Crossmatch Med Orders - Current: Current Medications Hydrocodone Bitart/Acetaminophen ([place] 325-5 Mg) 1 tab PO Q6H PRN PRN Reason: Pain Last Admin: 04/02/20 09:51 Dose: 1 tab Documented by: Cephalexin (Keflex) 500 mg PO BID [facility] Cyclobenzaprine HCl (Flexeril) 5 mg PO BID PRN PRN Reason: Muscle Spasm Hydromorphone HCl (Dilaudid) 0.5 mg IVPUSH Q4H PRN PRN Reason: Pain Last Admin: 03/26/20 22:54 Dose: 0.5 mg Documented by: Sodium Chloride (Normal Saline) 250 mls @ 75 mls/hr IV ASDIRECTED [facility] Last Admin: 03/31/20 12:44 Dose: 75 mls/hr Documented by: Levothyroxine Sodium (Levothyroxine) 112 mcg PO ACBREAKFAST [facility] Last Admin: 04/02/20 06:02 Dose: 112 mcg Documented by: Nadolol (Naldol) 20 mg PO DAILY [facility] Last Admin: 04/02/20 09:35 Dose: 20 mg Documented by: Pantoprazole Sodium (Protonix) 40 mg PO DAILY [facility] Last Admin: 04/02/20 09:34 Dose: 40 mg Documented by: Rifaximin (Xifaxan) 550 mg PO BID [facility] Last Admin: 04/02/20 09:36 Dose: 550 mg Documented by: Rivaroxaban (Xarelto) 10 mg PO Q24H [facility] Last Admin: 04/01/20 20:24 Dose: 10 mg Documented by: Sertraline HCl (Zoloft) 25 mg PO DAILY [facility] Last Admin: 04/02/20 09:33 Dose: 25 mg Documented by: Sodium Chloride (Saline Flush) 10 ml FLUSH ASDIRECTED PRN PRN Reason: Keep Vein Open Last Admin: 03/26/20 18:19 Dose: 10 ml Documented by: Spironolactone (Aldactone) 12.5 mg PO DAILY [facility] Last Admin: 04/02/20 09:33 Dose: 12.5 mg Documented by: Ursodiol (Actigal) 300 mg PO BID [facility] Last Admin: 04/02/20 09:33 Dose: 300 mg Documented by: Discontinued Medications Bupivacaine HCl (Sensorcaine-Mpf 0.25%) Confirm Administered Dose 20 ml .ROUTE .STK-MED ONE Stop: 03/28/20 10:45 Last Admin: 03/28/20 13:55 Dose: 20 ml Documented by: Cefazolin Sodium (Ancef) Confirm Administered Dose 2 gm .ROUTE .STK-MED ONE Stop: 03/28/20 10:53 Cefazolin Sodium (Ancef) Confirm Administered Dose 2 gm .ROUTE .STK-MED ONE Stop: 03/28/20 12:21 Enoxaparin Sodium (Lovenox) 40 mg SUBCUT Q24H [facility] Last Admin: 03/27/20 14:18 Dose: Not Given Documented by: Enoxaparin Sodium (Lovenox) 40 mg SUBCUT Q24H [facility] Last Admin: 03/30/20 21:02 Dose: 40 mg Documented by: Fentanyl (Sublimaze) Confirm Administered Dose 250 mcg .ROUTE .STK-MED ONE Stop: 03/28/20 10:53 Fentanyl (Sublimaze) 50 mcg IVPUSH Q5M PRN PRN Reason: Pain Stop: 03/28/20 18:00 Hydromorphone HCl (Dilaudid) 0.5 mg IVPUSH ONETIME ONE Stop: 03/26/20 18:10 Last Admin: 03/26/20 18:15 Dose: 0.5 mg Documented by: Magnesium Sulfate (Magnesium Sulfate In Water Premix) 2 gm in 50 mls @ 25 mls/hr IV ONETIME ONE Stop: 03/27/20 12:24 Last Admin: 03/27/20 10:33 Dose: 25 mls/hr Documented by: Lactated Ringer's (Ringers, Lactated) 1,000 mls @ 50 mls/hr IV ASDIRECTED [facility] Last Admin: 03/28/20 16:56 Dose: 50 mls/hr Documented by: Sodium Chloride (Normal Saline) 250 mls @ 100 mls/hr IV ASDIRECTED [facility] Last Admin: 03/28/20 09:28 Dose: 100 mls/hr Documented by: Lidocaine HCl (Xylocaine-Mpf 1%) Confirm Administered Dose 4 mls @ as directed .ROUTE .STK-MED ONE Stop: 03/28/20 10:53 Lactated Ringer's (Ringers, Lactated) Confirm Administered Dose 1,000 mls @ as directed .ROUTE .ST-MED ONE Stop: 03/28/20 10:53 Lactated Ringer's (Ringers, Lactated) Confirm Administered Dose 1,000 mls @ as directed .ROUTE .ST-MED ONE Stop: 03/28/20 13:14 Lactated Ringer's (Ringers, Lactated) Confirm Administered Dose 1,000 mls @ as directed .ROUTE .RUST-MED ONE Stop: 03/28/20 13:14 Cefazolin Sodium/Dextrose 2 gm (/ Premix) 50 mls @ 100 mls/hr IV Q8H [facility] Stop: 03/29/20 07:29 Last Admin: 03/29/20 06:27 Dose: 100 mls/hr Documented by: Magnesium Sulfate (Magnesium Sulfate In Water Premix) 4 gm in 100 mls @ 25 mls/hr IV ONETIME ONE Stop: 03/29/20 17:43 Last Admin: 03/29/20 15:15 Dose: Not Given Documented by: Magnesium Sulfate 4 gm/ Premix 100 mls @ 25 mls/hr IV ONETIME ONE Stop: 03/29/20 18:14 Last Admin: 03/29/20 15:15 Dose: Not Given Documented by: Magnesium Sulfate (Magnesium Sulfate In Water Premix) 2 gm in 50 mls @ 25 mls/hr IV Q2H [facility] Stop: 03/29/20 18:29 Last Admin: 03/29/20 16:11 Dose: 25 mls/hr Documented by: Magnesium Sulfate (Magnesium Sulfate In Water Premix) Confirm Administered Dose 4 gm in 100 mls @ as directed .ROUTE .RUST-MED ONE Stop: 03/29/20 14:16 Last Admin: 03/29/20 15:14 Dose: Not Given Documented by: Lactated Ringer's (Ringers, Lactated) 500 mls @ 500 mls/hr IV .BOLUS ONE Stop: 03/31/20 10:40 Last Admin: 03/31/20 09:49 Dose: 500 mls/hr Documented by: Lactated Ringer's (Ringers, Lactated) Confirm Administered Dose 1,000 mls @ as directed .ROUTE .RUST-MED ONE Stop: 03/31/20 09:46 Last Admin: 03/31/20 09:57 Dose: Not Given Documented by: Magnesium Sulfate (Magnesium Sulfate In Water Premix) 2 gm in 50 mls @ 25 mls/hr IV ONETIME ONE Stop: 04/01/20 12:08 Last Admin: 04/01/20 10:31 Dose: 25 mls/hr Documented by: Magnesium Sulfate (Magnesium Sulfate In Water Premix) 2 gm in 50 mls @ 25 mls/hr IV ONETIME ONE Stop: 04/02/20 09:59 Last Admin: 04/02/20 09:36 Dose: 25 mls/hr Documented by: Ketamine HCl (Ketalar) Confirm Administered Dose 500 mg .ROUTE .STK-MED ONE Stop: 03/28/20 10:54 Magnesium Hydroxide (Milk Of Magnesia) 30 ml PO ONETIME ONE Stop: 03/29/20 08:01 Last Admin: 03/29/20 09:21 Dose: 30 ml Documented by: Miscellaneous Medication (Phenylephrine 1 Mg/10 Ml-Ns) Confirm Administered Dose 1 mg .ROUTE .STK-MED ONE Stop: 03/28/20 12:19 Ondansetron HCl (Zofran) 4 mg IVPUSH ONETIME ONE Stop: 03/26/20 18:11 Last Admin: 03/26/20 18:15 Dose: 4 mg Documented by: Ondansetron HCl (Zofran) Confirm Administered Dose 4 mg .ROUTE .STK-MED ONE Stop: 03/28/20 10:53 Potassium Chloride (Klor-Con M20) 20 meq PO ONETIME ONE Stop: 04/02/20 08:01 Last Admin: 04/02/20 09:34 Dose: 20 meq Documented by: Propofol (Diprivan 20 Ml) Confirm Administered Dose 400 mg .ROUTE .STK-MED ONE Stop: 03/28/20 10:53 Propofol (Diprivan 20 Ml) Confirm Administered Dose 200 mg .ROUTE .STK-MED ONE Stop: 03/28/20 10:54 - Exam Quality Assessment: Reports: DVT Prophylaxis (Xarelto). Denies: Supplemental Oxygen General: Reports: Alert, Oriented, Cooperative, No Acute Distress HEENT: Reports: Pupils Equal, Pupils Reactive, Mucous Membr. Moist/[place] Neck: Reports: Supple, Trachea Midline. Denies: Lymphadenopathy Lungs: Reports: Clear to Auscultation, Normal Respiratory Effort Cardiovascular: Reports: Regular Rate, Regular Rhythm, No Murmurs GI/Abdominal Exam: Normal Bowel Sounds, Soft, Non-Tender, No Distention (Female) Exam: Deferred Rectal (Female) Exam: Deferred Back Exam: Reports: Normal Inspection, Full Range of Motion Extremities: Normal Inspection, Normal Range of Motion, Non-Tender, No Pedal Edema, Normal Capillary Refill Skin: Reports: Warm, Dry Wound/Incisions: Reports: Dressing Dry and Intact Neurological: Reports: No New Focal Deficit Psy/Mental Status: Reports: Alert, Normal Affect, Normal Mood
--- NOTE | 2020-04-15 13:53 | PCM.OPNOTE ---
- General Post-Op/Procedure Note Date of Surgery/Procedure: 03/28/20 Operative Procedure(s): cephallomedullary nailing of right hip intertrochanteric fracture with subtrochanteric extension Pre Op Diagnosis: right hip intertrochanteric hip fracture with subtrochanteric extension Post-Op Diagnosis: Same Anesthesia Technique: Local, MAC, Spinal Primary Surgeon: Mitchel Childs Anesthesia Provider: Bruce Hogan Grades 1 Thru 6 Home Teacher: Mary Springer EBL in mLs: 250 Complications: None Condition: Good
--- NOTE | 2020-04-16 09:00 | OR ---
DATE OF OPERATION: 03/28/2020 SURGEON: Mitchel Childs MD OPERATION PERFORMED: Cephalomedullary nailing of right hip intertrochanteric hip fracture with subtrochanteric extension. PREOPERATIVE DIAGNOSIS: Right hip intertrochanteric hip fracture with subtrochanteric extension. POSTOPERATIVE DIAGNOSIS: Right hip intertrochanteric hip fracture with subtrochanteric extension. ANESTHESIA: Local MAC with spinal. ANESTHESIA PROVIDER: Bruce Hogan CRNA MICROELECTRONICS ASSEMBLER: Mary Springer PA-C ESTIMATED BLOOD LOSS: 250 mL. COMPLICATIONS: None. CONDITION: Stable. IMPLANTS: Parker long gamma nail. DESCRIPTION OF PROCEDURE: The patient was identified in the preoperative holding area where proper site was marked and identified by the surgeon. The patient was taken back to the operating theater where after adequate anesthesia the patient was placed on the traction table. Peg was then placed and well padded. Left lower extremity was placed in the traction boot, but no traction was applied and was placed in dependent position. Right lower extremity was placed in traction boot and traction was applied. C-arm fluoroscopy was then utilized to reduce the right subtrochanteric hip fracture with intertrochanteric extension. At this time, once it was reduced, right hip was then sterilely prepped and draped in the usual sterile fashion. OR time-out was performed. The patient received 2 g IV Ancef. Standard incision was made superior to the greater trochanter. Guide pin was then placed. An opening reamer was then utilized. At this time, ball- tip guidewire was placed down the canal and the 13 reamer was placed making sure that it had adequate room for the nail, which it did. The long gamma nail was then placed just past the superior pole of the patella distally. The guide pin was then placed up into the head in center-center position. I did have to make a small incision anteriorly and a Dion door was then used to depress the neck fragment which was kicked up in flexion. Once the guide pin was placed, step reamer was utilized and the lag screw was placed into the head and neck. The locking screw was then placed proximally to lock the lag screw in place. The proximal aiming arm was then removed and distally perfect circles were done. Two distal perfect circles lateral to medial were then placed and were found to be in adequate position with C-arm fluoroscopy which was utilized throughout the procedure for the reduction as well as placement of the cephalomedullary nail. At this time, adequate saline was irrigated through all incisions. 0 Vicryl was used for closure of the IT band and gluteal fascia, 2-0 Vicryl was used subcutaneously, and vangie were used for the skin. The patient was placed in a sterile soft dressing and sent to PACU in stable condition. MMODAL /[id number]
== END 2020-04-02 13:09 | DRG 482 ==
LOC: JD.ED 17:41 → JD.MS 20:09 → OBSVTOIN 03-27 14:10 → JD.MS 03-27 14:11
PROVIDERS: ADMIT Internal Medicine Cardiovascular Disease; ATTEND Internal Medicine Cardiovascular Disease
PROC: 0QS606Z Reposition Right Upper Femur with Intramedullary Internal Fixation Device, Open Approach (ICD-10-PCS; 2020-03-28)
PROC: 30233N1 Transfusion of Nonautologous Red Blood Cells into Peripheral Vein, Percutaneous Approach (ICD-10-PCS; principal; 2020-04-01)
DX: S72.141A Displaced intertrochanteric fracture of right femur, initial encounter for closed fracture (principal); I10 Essential (primary) hypertension; R94.5 Abnormal results of liver function studies; D64.9 Anemia, unspecified; H91.93 Unspecified hearing loss, bilateral; E03.9 Hypothyroidism, unspecified; E78.5 Hyperlipidemia, unspecified; K74.3 Primary biliary cirrhosis; D69.6 Thrombocytopenia, unspecified; Z20.828 Contact with and (suspected) exposure to other viral communicable diseases; H54.7 Unspecified visual loss; E78.00 Pure hypercholesterolemia, unspecified; I95.9 Hypotension, unspecified; R41.0 Disorientation, unspecified; Z91.011 Allergy to milk products; Z79.890 Hormone replacement therapy; Z79.899 Other long term (current) drug therapy; W19.XXXA Unspecified fall, initial encounter
CPT/HCPCS: 36415 ×2; 70450; 71045; 73502; 80048; 80053; 83735; 85025 ×2; 85049; 85610; 85730; 86140; 86850; 86870; 86900; 86901; 87641; 93005 ×2; 96365; 96366; 96375 ×2; 96376; 99285; A9270 ×2; G0378 ×3; J1170 ×2; J2405; J3475; U0002; 01230; 36430; 73552-26-RT; 73552-RT; 76000; 76000-26; 81001; 82607; 82728; 82746; 83880; 84443; 85018; 85045; 86922; 87086; 87088; 87186; 93010; 94760; 94761; 96374; 97110-GP; 97116-GP; 97161-GP; 97165-GO; 97530-GO; 97530-GP; 99222; 99231; 99232; 99238; 99284; C1713; J0690; J1650; J2001; J2370; J2704; J3010; J3490; J7050; J7120; P9016; P9034

== ENCOUNTER 2020-12-29 15:39 | Emergency (ER) | payer MEDICARE, BC ==
[2020-12-29 16:03] VITALS: BP 123/60; PULSE 73
--- NOTE | 2020-12-29 16:23 | EDM.PDOC ---
ED HPI GENERAL MEDICAL PROBLEM - General Chief Complaint: Lower Extremity Injury/Pain Stated Complaint: RT HIP PAIN Time Seen by Provider: 12/29/20 16:04 Source of Information: Reports: Patient, Family History Limitations: Reports: No Limitations - History of Present Illness INITIAL COMMENTS - FREE TEXT/NARRATIVE: 75-year-old female, who is a resident of [facility] in [facility], with complaints of right proximal femur/right hip pain. The patient states this is been ongoing for the past couple of weeks. She denies any recent falls or injury. Her daughter is at the bedside with her and states that the detention has not informed her of any falls or injuries that have occurred. The patient states that she noted the pain initially while she was ambulating. She ambulates using a walker. Of note, she did have an ORIF of this hip in March 2020 due to a fall. Patient states she has otherwise felt well. She denies any recent fever, chills, nausea, vomiting, diarrhea, abdominal pain, headache, cough or shortness of breath. 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 Left Hip Pain Score (Numeric/FACES): 6 - Related Data Allergies Allergy/AdvReac Type Severity Reaction Status Date / Time No Known Allergies Allergy Verified 12/29/20 16:04 Home Meds: Home Meds Levothyroxine 112 mcg PO DAILY 03/21/19 [History] Omeprazole 40 mg PO DAILY 03/21/19 [History] Rifaximin [Xifaxan] 550 mg PO BID 03/21/19 [History] Sertraline [Zoloft] 25 mg PO DAILY 03/21/19 [History] Spironolactone [Aldactone] 12.5 mg PO DAILY 03/21/19 [History] nadoloL [Corgard] 20 mg PO DAILY 03/21/19 [History] ursodioL [Ursodiol] 300 mg PO BID 03/21/19 [History] Ibuprofen 200 mg PO TID PRN 30 Days tablet 03/27/19 [Rx] Cyclobenzaprine [Flexeril] 5 mg PO BID PRN 07/27/19 [History] Lactulose [Cephulac] 20 gm PO DAILY 07/27/19 [History] Acetaminophen 650 mg PO Q4H PRN 03/26/20 [History] Benzonatate 100 mg PO TID PRN 03/26/20 [History] Calcium Carbonate/Vitamin D3 [Calcium 500-Vit D3 200 Caplet] 2 tab PO DAILY 03/26/20 [History] Cholecalciferol (Vitamin D3) [Vitamin D3] 5,000 unit PO DAILY 03/26/20 [History] Fexofenadine HCl [Mirian Allergy] 60 mg PO DAILY 03/26/20 [History] Simethicone 125 mg PO QIDPCANDBED 03/26/20 [History] Acetaminophen/HYDROcodone [[place] 325-5 MG] 1 tab PO Q6H PRN #20 tablet 04/02/20 [Rx] Rivaroxaban [Xarelto] 10 mg PO Q24H #35 tablet 04/02/20 [Rx] cephALEXin [Keflex] 500 mg PO BID #9 cap 04/02/20 [Rx] Past Medical History HEENT History: Reports: Impaired Vision Other HEENT History: wears glasses, has hearing aides but hasn't used Cardiovascular History: Reports: High Cholesterol, Hypertension Respiratory History: Reports: None Gastrointestinal History: Reports: Other (See Below) Other Gastrointestinal History: Patient has primary idiopathic biliary cirrhosis. He is followed every 3-6 months by gastroenterology. 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 Neurological History: Reports: None Psychiatric History: Reports: None Endocrine/Metabolic History: Reports: Hypothyroidism Hematologic History: Reports: None Other Hematologic History: low platlet counts Immunologic History: Reports: None Oncologic (Cancer) History: Reports: Basal Cell Carcinoma Other Oncologic History: right cheek removed, currently has a spot on her back. Dermatologic History: Reports: None - Infectious Disease History Infectious Disease History: Reports: None - Past Surgical History Musculoskeletal Surgical History: Reports: Other (See Below) Other Musculoskeletal Surgeries/Procedures:: spine surgery Social & Family History - Family History Family Medical History: No Pertinent Family History - Tobacco Use Tobacco Use Status *Q: Never Tobacco User Second Hand Smoke Exposure: No - Caffeine Use Caffeine Use: Reports: Coffee Other Caffeine Use: 2-3 cups of coffee a day - Recreational Drug Use Recreational Drug Use: No - Living Situation & Occupation Living situation: Reports: Occupation: Retired Review of Systems - Review of Systems Review Of Systems: Comprehensive ROS is negative, except as noted in HPI. ED EXAM, GENERAL - Physical Exam Exam: See Below Exam Limited By: No Limitations General Appearance: Alert, WD/WN, No Apparent Distress Ears: Normal External Exam, Hearing Grossly Normal Nose: Normal Inspection Throat/Mouth: Normal Inspection, Normal Lips, Normal Voice, No Airway Compromise Head: Atraumatic Neck: Normal Inspection, Supple Respiratory/Chest: No Respiratory Distress, No Accessory Muscle Use Cardiovascular: Normal Peripheral Pulses, Regular Rate, Rhythm, No Edema, No Murmur Peripheral Pulses: 2+: Radial (L), Radial (R) GI/Abdominal: No Distention (Female) Exam: Deferred Rectal (Female) Exam: Deferred Back Exam: Normal Inspection Extremities: Normal Inspection, No Pedal Edema, Normal Capillary Refill. No: Normal Range of Motion (Decreased range of motion on flexion of right hip), Non- Tender (Tenderness noted with flexion of right hip) Neurological: Alert, Normal Cognition. No: Normal Gait (Has increased pain to right hip when ambulating using the front wheeled walker) Psychiatric: Normal Affect, Normal Mood Skin Exam: Warm, Dry, Intact, Normal Color, No Rash Lymphatic: No Adenopathy Course - Vital Signs Text/Narrative:: As stated above patient presents with a 2-week history of acute onset right proximal femur/hip pain. Pain is located on the lateral aspect of right proximal femur area. She states it is more painful when ambulating. Upon assessment, the patient is not fully able to follow my commands to assess range of motion to her hips. She does note increased pain with flexion of right hip. She denies any pain with lateral rotation however has increased pain with medial rotation. She also has increased pain with straight leg raise against resistance. I have ordered for the patient to have an x-ray of the right hip. Last Recorded V/S: Last Vital Signs Temp 97.8 F 12/29/20 15:59 Pulse 73 12/29/20 15:59 Resp 18 12/29/20 15:59 BP 123/60 12/29/20 15:59 Pulse Ox 98 12/29/20 15:59 - Re-Assessments/Exams Free Text/Narrative Re-Assessment/Exam: 12/29/20 17:38 Radiologist impression x-ray of the pelvis and right hip: 1. Degenerative change within the lower lumbar spine as well as superiorly within the left hip. 2. Previous surgery within the right hip and femur. 3. Other findings as noted in radiology respiratory. Nothing acute is appreciated. 12/29/20 17:53 Discussed the results with the patient and her daughter. The patient states that she only asks for her as needed Tylenol maybe twice a week at the most. She also states she waits till her pain is severe before asking for the medication. Recommend that the patient be assessed for her pain every 4 hours at the detention. Patient needs to be medicated with as needed Tylenol when she voices pain. She will need to follow-up with her primary care provider within 1 week for further evaluation. Departure - Departure Time of Disposition: 17:54 Disposition: Home, Self-Care 01 Condition: Good Clinical Impression: Pain of right femur - Discharge Information Instructions: Pain Medicine Instructions, [id number] Referrals: Jamie Tolentino MD [Primary Care Provider] - Forms: ED Department Discharge Additional Instructions: You were seen in the emergency department today with complaints of right upper leg/right hip pain. X-ray was completed which did not show any breaks or reason for the pain. Recommend that your pain be assessed at the detention by the nursing staff every 4 hours. Should you develop pain, you need to be medicated with your as needed Tylenol. Do not wait till the pain becomes severe as then it is too hard to give you enough medication to relieve the pain. You will need to follow-up with your primary care provider within 1 week for further evaluation. Sepsis Event Note (ED) - Evaluation Sepsis Screening Result: No Definite Risk - Focused Exam Vital Signs: Vital Signs Temp Pulse Resp BP Pulse Ox 12/29/20 15:59 97.8 F 73 18 123/60 98
--- NOTE | 2020-12-29 17:13 | CR ---
Pelvis and right hip: AP view of the pelvis was obtained as well as AP and frog-leg lateral view of the right hip. Comparison: No prior pelvis or right hip study is available. Disc space narrowing is seen within the lower lumbar spine. Two sclerotic areas are seen within the sacrum which are believed to represent bone islands. Intramedullary keily is seen within the right hip as well as compression screw into the right femoral head. Detached lesser trochanter is noted within the right hip compatible with old fracture. Bony structures are slightly osteopenic. Mild joint space narrowing is noted within the left hip. No acute fracture or other acute abnormality is seen. Impression: 1. Degenerative change within the lower lumbar spine as well as superiorly within the left hip. 2. Previous surgery within the right hip and femur. 3. Other findings as noted above. Nothing acute is appreciated. Diagnostic code #2
[2020-12-29] MEDS ORDERED: Acetaminophen 325 MG Tab PO ONE (18:22)
== END 2020-12-29 18:20 ==
LOC: JD.ED 15:39
DX: M79.651 Pain in right thigh (principal); M25.551 Pain in right hip; E78.00 Pure hypercholesterolemia, unspecified; E03.9 Hypothyroidism, unspecified; I10 Essential (primary) hypertension; Z79.899 Other long term (current) drug therapy
CPT/HCPCS: 73502; 99283; A9270; 99282

== ENCOUNTER 2021-10-23 20:28 | Emergency (ER) | payer MEDICARE, BC ==
[2021-10-23 21:06] VITALS: BP 129/76; PULSE 81
[2021-10-23] MEDS ORDERED: Sodium Chloride 0.9% 10 ML Syringe FLUSH PRN (21:42)
[2021-10-23] MEDS ORDERED: Sodium Chloride 0.9% 1,000 ML IV SCH (21:45)
[2021-10-23 22:34] LABS: ESTIMATED GFR 54 mL/min (>60)
[2021-10-23] MEDS ORDERED: Acetaminophen 325 MG Tab PO ONE (23:06)
[2021-10-23] MEDS ORDERED: cefTRIAXone 1 GM in Sodium Chloride 0.9% 100 ML IV ONE (23:48)
[2021-10-23] MEDS ORDERED: Furosemide 40 MG/4 ML VIAL IVPUSH ONE (23:51)
[2021-10-24] MEDS ORDERED: Haloperidol Lactate 5 MG/ML SDV IVPUSH ONE (00:46)
== END 2021-10-24 02:25 ==
LOC: JD.ED 20:28
DX: I50.9 Heart failure, unspecified (principal); N39.0 Urinary tract infection, site not specified; I10 Essential (primary) hypertension; E03.9 Hypothyroidism, unspecified; Z79.899 Other long term (current) drug therapy; Z20.822 Contact with and (suspected) exposure to COVID-19
CPT/HCPCS: 36415; 71045; 80053; 81001; 82140; 83735; 84443; 85007; 85027; 85610; 86140; 87086; 87088; 87186; 96361; 96365; 96375; 99285; A9270; J0696; J1630; J1940; J3490; J7030; U0002; 99283

== ENCOUNTER 2021-10-28 14:54 | Inpatient (IN) | payer MEDICARE, BC ==
[2021-10-28] MEDS ORDERED: fentaNYL 100 MCG/2 ML SDV IVPUSH ONE (15:49)
[2021-10-28] MEDS ORDERED: cefTRIAXone 1 GM in Sodium Chloride 0.9% 100 ML IV ONE (15:50)
[2021-10-28] MEDS ORDERED: Ondansetron 4 MG/2 ML SDV IV PRN (16:23)
[2021-10-28 16:54] LABS: CORONAVIRUS COVID-19 NAA NEGATIVE (NEGATIVE)
[2021-10-28] MEDS: Heparin Sodium 5,000 Units/ML Vial SUBCUT SCH (18:06)
[2021-10-28] MEDS: HYDROmorphone 0.5 MG/0.5 ML Syringe IVPUSH PRN (19:51)
[2021-10-28] MEDS ORDERED: Temazepam 7.5 MG Cap PO PRN (21:00)
[2021-10-29] MEDS: Heparin Sodium 5,000 Units/ML Vial SUBCUT SCH ×2 (00:52→08:28)
[2021-10-29] MEDS: HYDROmorphone 0.5 MG/0.5 ML Syringe IVPUSH PRN ×4 (00:53→20:20)
[2021-10-29 06:31] LABS: ESTIMATED GFR > 60 mL/min (>60)
[2021-10-29] MEDS ORDERED: Carboxymethylcellulose Sodium 1% Ophth Gel 15 ML Bottle EYEBOTH PRN (08:20)
[2021-10-29] MEDS: Rifaximin 550 MG Tab PO SCH ×3 (08:28→20:40)
[2021-10-29] MEDS: Sertraline 50 MG Tab PO SCH (08:28)
[2021-10-29] MEDS: Pantoprazole 40 MG Tab.CR PO SCH (08:28)
[2021-10-29] MEDS: Lactulose Soln 10 GM/15 ML 30 ML UD Cup PO SCH ×3 (08:28→20:19)
[2021-10-29] MEDS: Simethicone 80 MG Tab.Chew PO SCH ×5 (08:28→22:11)
[2021-10-29] MEDS: Carboxymethylcellulose Sodium 1% Ophth Gel 15 ML Bottle EYEBOTH SCH ×3 (08:29→20:20)
[2021-10-29] MEDS: cefTRIAXone 2 GM in Sodium Chloride 0.9% 100 ML IV SCH (08:29)
[2021-10-29] MEDS: Furosemide 40 MG Tab PO SCH (09:06)
[2021-10-29] MEDS: Spironolactone 25 MG Tab PO SCH (09:06)
[2021-10-29] MEDS: NADOLOL 20 MG PO SCH (12:21)
[2021-10-29] MEDS: URSODIOL 500 MG PO SCH ×3 (12:21→20:39)
[2021-10-30] MEDS: HYDROmorphone 0.5 MG/0.5 ML Syringe IVPUSH PRN ×6 (00:24→22:45)
[2021-10-30] MEDS: Levothyroxine 112 MCG Tab PO SCH (05:37)
[2021-10-30 06:37] LABS: ESTIMATED GFR > 60 mL/min (>60)
[2021-10-30] MEDS: Lactulose Soln 10 GM/15 ML 30 ML UD Cup PO SCH ×3 (09:25→21:50)
[2021-10-30] MEDS: Carboxymethylcellulose Sodium 1% Ophth Gel 15 ML Bottle EYEBOTH SCH ×3 (09:28→21:51)
[2021-10-30] MEDS: NADOLOL 20 MG PO SCH (09:32)
[2021-10-30] MEDS: Simethicone 80 MG Tab.Chew PO SCH ×4 (09:32→21:51)
[2021-10-30] MEDS: cefTRIAXone 2 GM in Sodium Chloride 0.9% 100 ML IV SCH (09:32)
[2021-10-30] MEDS: URSODIOL 500 MG PO SCH ×2 (09:32→21:51)
[2021-10-30] MEDS: Spironolactone 25 MG Tab PO SCH (09:32)
[2021-10-30] MEDS: Pantoprazole 40 MG Tab.CR PO SCH (09:32)
[2021-10-30] MEDS: Furosemide 40 MG Tab PO SCH (09:33)
[2021-10-30] MEDS: Rifaximin 550 MG Tab PO SCH ×2 (09:33→21:51)
[2021-10-30] MEDS: Sertraline 50 MG Tab PO SCH (09:33)
[2021-10-30] MEDS ORDERED: Magnesium Sulfate/Water 2 GM in Premix Bag 1 BAG IV ONE (14:30)
[2021-10-30] MEDS: Sodium Chloride 0.9% 1,000 ML IV SCH (16:05)
[2021-10-30] MEDS: Potassium Chloride Riders 10 MEQ in Premix Bag 1 BAG IV SCH ×2 (17:28→18:42)
[2021-10-31 06:29] LABS: ESTIMATED GFR > 60 mL/min (>60)
[2021-10-31] MEDS: Levothyroxine 112 MCG Tab PO SCH (06:35)
[2021-10-31] MEDS ORDERED: Levofloxacin/Dextrose 5%-Water 500 MG in Premix Bag 1 BAG IV SCH (07:30)
[2021-10-31] MEDS: Simethicone 80 MG Tab.Chew PO SCH ×4 (09:19→22:53)
[2021-10-31] MEDS: Rifaximin 550 MG Tab PO SCH ×2 (09:20→19:59)
[2021-10-31] MEDS: Pantoprazole 40 MG Tab.CR PO SCH (09:20)
[2021-10-31] MEDS: Furosemide 40 MG Tab PO SCH (09:20)
[2021-10-31] MEDS: Sertraline 50 MG Tab PO SCH (09:20)
[2021-10-31] MEDS: Spironolactone 25 MG Tab PO SCH (09:20)
[2021-10-31] MEDS: Lactulose Soln 10 GM/15 ML 30 ML UD Cup PO SCH ×3 (09:20→19:59)
[2021-10-31] MEDS: Carboxymethylcellulose Sodium 1% Ophth Gel 15 ML Bottle EYEBOTH SCH ×3 (09:23→20:15)
[2021-10-31] MEDS: URSODIOL 500 MG PO SCH ×2 (09:23→20:10)
[2021-10-31] MEDS: NADOLOL 20 MG PO SCH (09:23)
[2021-10-31] MEDS: oxyCODONE 5 MG Tab PO PRN ×2 (09:48→19:45)
[2021-10-31] MEDS: Sodium Chloride 0.9% 1,000 ML IV SCH (11:44)
[2021-10-31] MEDS: HYDROmorphone 0.5 MG/0.5 ML Syringe IVPUSH PRN ×3 (14:56→22:53)
[2021-11-01] MEDS: Sodium Chloride 0.9% 1,000 ML IV SCH ×2 (00:27→13:28)
[2021-11-01 06:53] LABS: ESTIMATED GFR > 60 mL/min (>60)
[2021-11-01] MEDS: Linezolid 600 MG in Premix Bag 1 BAG IV SCH ×2 (09:11→20:53)
[2021-11-01] MEDS: Spironolactone 25 MG Tab PO SCH (11:20)
[2021-11-01] MEDS: Simethicone 80 MG Tab.Chew PO SCH ×4 (11:20→21:50)
[2021-11-01] MEDS: Sertraline 50 MG Tab PO SCH (11:20)
[2021-11-01] MEDS: oxyCODONE 5 MG Tab PO PRN (11:21)
[2021-11-01] MEDS: Rifaximin 550 MG Tab PO SCH ×2 (11:21→20:53)
[2021-11-01] MEDS: Levothyroxine 112 MCG Tab PO SCH (11:22)
[2021-11-01] MEDS: Furosemide 40 MG Tab PO SCH (11:23)
[2021-11-01] MEDS: Lactulose Soln 10 GM/15 ML 30 ML UD Cup PO SCH ×3 (11:23→20:53)
[2021-11-01] MEDS: NADOLOL 20 MG PO SCH (11:23)
[2021-11-01] MEDS: Pantoprazole 40 MG Tab.CR PO SCH (11:23)
[2021-11-01] MEDS: URSODIOL 500 MG PO SCH ×2 (11:23→20:53)
[2021-11-01] MEDS: Carboxymethylcellulose Sodium 1% Ophth Gel 15 ML Bottle EYEBOTH SCH ×3 (11:24→20:54)
[2021-11-01] MEDS ORDERED: Potassium Chloride Riders 10 MEQ in Premix Bag 1 BAG IV ONE ×2 (16:00→17:00)
[2021-11-02] MEDS: Sodium Chloride 0.9% 1,000 ML IV SCH ×2 (02:50→16:16)
[2021-11-02] MEDS: Levothyroxine 112 MCG Tab PO SCH (05:46)
[2021-11-02] MEDS: Linezolid 600 MG in Premix Bag 1 BAG IV SCH (08:33)
[2021-11-02] MEDS: Rifaximin 550 MG Tab PO SCH ×2 (08:34→21:50)
[2021-11-02] MEDS: Lactulose Soln 10 GM/15 ML 30 ML UD Cup PO SCH ×3 (08:34→21:50)
[2021-11-02] MEDS: Simethicone 80 MG Tab.Chew PO SCH ×4 (08:34→21:55)
[2021-11-02] MEDS: Pantoprazole 40 MG Tab.CR PO SCH (08:34)
[2021-11-02] MEDS: Sertraline 50 MG Tab PO SCH (08:35)
[2021-11-02] MEDS: Carboxymethylcellulose Sodium 1% Ophth Gel 15 ML Bottle EYEBOTH SCH ×3 (08:37→21:50)
[2021-11-02] MEDS: oxyCODONE 5 MG Tab PO PRN (08:43)
[2021-11-02] MEDS: URSODIOL 500 MG PO SCH ×2 (08:46→21:50)
[2021-11-02] MEDS ORDERED: Magnesium Sulfate/Water 2 GM/50 ML BAG IV ONE (11:15)
[2021-11-02 12:53] LABS: ESTIMATED GFR > 60 mL/min (>60)
[2021-11-02] MEDS: Potassium Chloride Riders 10 MEQ in Premix Bag 1 BAG IV SCH ×4 (14:52→20:22)
[2021-11-02] MEDS: NADOLOL 20 MG PO SCH (16:14)
[2021-11-02] MEDS: [UNRECOGNIZED DRUG - OTHER] PO SCH (16:14)
[2021-11-02] MEDS: Linezolid 600 MG Tab PO SCH (21:50)
[2021-11-03] MEDS: NADOLOL 20 MG PO SCH ×2 (02:17→09:00)
[2021-11-03] MEDS: Levothyroxine 112 MCG Tab PO SCH (06:48)
[2021-11-03] MEDS: oxyCODONE 5 MG Tab PO PRN (07:02)
[2021-11-03 07:12] LABS: ESTIMATED GFR > 60 mL/min (>60)
[2021-11-03] MEDS: Lactulose Soln 10 GM/15 ML 30 ML UD Cup PO SCH ×5 (08:42→21:43)
[2021-11-03] MEDS: Pantoprazole 40 MG Tab.CR PO SCH (08:42)
[2021-11-03] MEDS: Linezolid 600 MG Tab PO SCH ×2 (08:43→21:42)
[2021-11-03] MEDS: Sertraline 25 MG Tab PO SCH (08:43)
[2021-11-03] MEDS: Simethicone 80 MG Tab.Chew PO SCH ×4 (08:43→21:43)
[2021-11-03] MEDS: Rifaximin 550 MG Tab PO SCH ×2 (08:43→21:42)
[2021-11-03] MEDS: Carboxymethylcellulose Sodium 1% Ophth Gel 15 ML Bottle EYEBOTH SCH ×4 (08:49→21:43)
[2021-11-03] MEDS: [UNRECOGNIZED DRUG - OTHER] PO SCH (09:00)
[2021-11-03] MEDS: URSODIOL 500 MG PO SCH (13:21)
[2021-11-04 05:07] VITALS: PULSE 89
[2021-11-04] MEDS: Levothyroxine 112 MCG Tab PO SCH (07:06)
[2021-11-04] MEDS: oxyCODONE 5 MG Tab PO PRN (07:06)
[2021-11-04] MEDS: Sertraline 25 MG Tab PO SCH ×2 (07:53→11:59)
[2021-11-04] MEDS: Linezolid 600 MG Tab PO SCH ×2 (07:53→11:59)
[2021-11-04] MEDS: Rifaximin 550 MG Tab PO SCH ×2 (07:53→11:59)
[2021-11-04] MEDS: Simethicone 80 MG Tab.Chew PO SCH ×3 (07:53→17:07)
[2021-11-04] MEDS: Pantoprazole 40 MG Tab.CR PO SCH ×2 (07:54→11:58)
[2021-11-04] MEDS: Carboxymethylcellulose Sodium 1% Ophth Gel 15 ML Bottle EYEBOTH SCH ×3 (07:57→17:08)
[2021-11-04 08:00] VITALS: BP 106/48
[2021-11-04] MEDS: Lactulose Soln 10 GM/15 ML 30 ML UD Cup PO SCH ×2 (08:01→17:07)
[2021-11-04] MEDS ORDERED: [UNRECOGNIZED DRUG - OTHER] PO SCH (09:00)
[2021-11-04] MEDS ORDERED: URSODIOL 500 MG PO SCH (09:00)
== END 2021-11-04 10:04 | DRG 689 ==
LOC: JD.ED 14:54 → JD.MS 16:00 → UNDOADMIN 16:00 → JD.MS 10-29 14:54
PROVIDERS: ADMIT Internal Medicine; ATTEND Internal Medicine
DX: N39.0 Urinary tract infection, site not specified (principal); K72.00 Acute and subacute hepatic failure without coma; C79.51 Secondary malignant neoplasm of bone; C22.0 Liver cell carcinoma; E72.20 Disorder of urea cycle metabolism, unspecified; E87.6 Hypokalemia; K74.3 Primary biliary cirrhosis; B95.2 Enterococcus as the cause of diseases classified elsewhere; H54.7 Unspecified visual loss; E78.00 Pure hypercholesterolemia, unspecified; I10 Essential (primary) hypertension; R32 Unspecified urinary incontinence; E03.9 Hypothyroidism, unspecified; D69.6 Thrombocytopenia, unspecified; E88.09 Other disorders of plasma-protein metabolism, not elsewhere classified; Z66 Do not resuscitate; B96.1 Klebsiella pneumoniae [K. pneumoniae] as the cause of diseases classified elsewhere; G89.3 Neoplasm related pain (acute) (chronic); Z20.822 Contact with and (suspected) exposure to COVID-19; Z79.890 Hormone replacement therapy; Z79.899 Other long term (current) drug therapy; Z97.4 Presence of external hearing-aid; Z85.828 Personal history of other malignant neoplasm of skin
CPT/HCPCS: 0240U; 36415; 71045; 80048; 80053; 81001; 82140; 83605; 83735; 85025; 85610; 87040; 87086; 87088; 87186; 92610; 96374; 96375; 97116; 97162; 97530; 99285; A9270-GY; J0696; J1170; J1644; J1956; J2020; J3010; J3475; J3480; J7030; U0002